=== PATIENT | male | born 1945 | race Caucasian/White ===

== ENCOUNTER 2016-04-01 10:56 | Inpatient (IN) | payer MEDICARE, BC ==
[~2016-04-01 10:56] MED LIST: ADENOSINE 6 MG/2 ML SYR IV ONE
[2016-04-01] MEDS ORDERED: ADENOSINE 6 MG/2 ML SYR IV ONE ×3 (11:08→11:12)
[2016-04-01] MEDS ORDERED: DILTIAZEM 25 MG/5 ML VIAL IV ONE ×2 (11:10→11:12)
[2016-04-01] MEDS ORDERED: NS 1,000 ML IV ONE ×3 (11:13→13:22)
--- NOTE | 2016-04-01 11:17 | EDPRACDOC ---
- General Information Chief Complaint: Dyspnea/Resp distress Stated Complaint: RESPIRATORY' Time Seen by Provider: 04/01/16 11:05 Mode Of Arrival: Ambulance Home Medications: Home Medications Aspirin [Brii Aspirin] 325 mg PO DAILY 12/14/12 Lisinopril [Prinivil] 10 mg PO DAILY 12/14/12 Pravastatin [Pravachol] 40 mg PO DAILY 12/14/12 Tiotropium [Spiriva Handihaler] 1 inh INH DAILY 12/14/12 Furosemide [Lasix] 40 mg PO DAILY #30 tab 12/21/12 Albuterol Sulfate [Proair Hfa] 2 puff INH Q6H PRN 01/07/16 Tamsulosin HCl [Flomax] 0.4 mg PO DAILY 01/07/16 Cinnamon Bark [Cinnamon] 500 mg PO DAILY 01/08/16 Multivitamin [Multiple Vitamins] 1 each PO DAILY 01/08/16 Albuterol/Ipratropium Neb [Duoneb] 3 ml NEB Q4-6H PRN 04/01/16 Calcium Carbonate [Calcium] 1,000 mg PO DAILY 04/01/16 Levothyroxine [Synthroid, Levoxyl] 50 mcg PO DAILY 04/01/16 Metoprolol Succinate (XL) [Toprol Xl] 50 mg PO DAILY 04/01/16 Nebulizer [Erapid Nebulizer] 1 each MC .UNKNOWN 04/01/16 Niacin [Slo-Niacin] 1,000 mg PO DAILY 04/01/16 Allergies/Adverse Reactions: Allergies Allergy/AdvReac Type Severity Reaction Status Date / Time No Known Allergies Allergy Verified 04/01/16 11:18 - History of Present Illness Onset: 2 DAYS HPI: PT STATES COUGH PROD OF GREEN PHLEGM, SOBR, CHEST TIGHTNESS, "FEVER", STATES WAS TREATED FOR PNEUMONIA 2 WEEKS AGO, NO N/V/D. 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 Denies: Cancer Surgical History: Reports: Angioplasty (STENT 2002), Hernia Surgery, Other ( MIDDLE & RING FINGER AMPUTATED R HAND) - Family Medical History Reports: Hypertension (BROTHER, MOTHER), Diabetes (BROTHER), Cancer (FATHER- TUMOR IN C-SPINE & COLON CA), Cardiac Disorders (MOTHER -[place] & AGE 57). Denies: Stroke - Social Medical History Smoking Status: Former smoker ETOH: None Substance Abuse: None EDM Review of Systems - Review of Systems Constitutional: Fever, Weakness Eyes: negative: Blurred Vision, Double Vision Ears: negative: Drainage Throat: negative: Pain Nose: Congestion. negative: Discharge Respiratory: Cough, Shortness of Breath, Wheezing Cardiovascular: negative: Chest Pain, Palpitations Gastrointestinal: negative: Diarrhea, Nausea, Pain, Vomiting Genitourinary: negative: Dysuria, Frequency Neurological: negative: Dizziness, Headache, Numbness, Weakness Musculoskeletal: No Symptoms Reported Integumentary: No Symptoms Reported - Physical Exam Constitutional: Alert (Awake), No apparent distress Oriented to: Time, Person, Place Last recorded Vital Signs: Last Vital Signs Temp 99.0 F 04/01/16 11:00 Pulse 159 H 04/01/16 11:00 Resp 20 04/01/16 11:00 BP 184/125 H 04/01/16 11:00 Pulse Ox 86 L 04/01/16 11:00 Oxygen Pulse Oxygen Saturation 86 O2 Device Nasal Cannula Oxygen Flow Rate 4 Fraction of Inspired Oxygen ( FIO2) - HEENT Head: Normal ( normocephalic) Eye Exam: Normal (PERRL, EOMI, Sclera white) Oropharynx: Normal (Pharynx:Moist without exudate,Gums-no swelling) Tympanic Membrane: Normal ENT EAC: Normal TMJ: Normal Nose: No Symptoms Reported (septum midline) Neck: Normal (FROM, trachea at midline) - Respiratory/Cardiovascular Respiratory: Accessory Muscle Use, Wheezes Cardiovascular: Tachycardia - GI Auscultation: Normal (NABS) Palpation: Normal (Soft,No rebound or guarding, non distended) Tenderness: Non tender Merritt's Sign: Negative - Musculoskeletal Back: Normal (Non-Tender) Extremities: Normal (Normal tone, Pulses 2+ No cyanosis or edema, FROM) - Integumentary Skin: Normal, Warm, Dry Lymphatics: Normal (no adenopathy) - Neurologic Memory Impaired: Normal Motor Function: Normal (Normal tone, Pulses 2+ No cyanosis or edema, FROM) Cranial Nerve: Normal (CN II-X11 intact sensation, strength 5/5) Cerebellar: Normal Mood Description: Normal Perception: Normal ED SOB MDM - Re-evaluation Re-evaluation 1 Re-evaluation Time: 11:09 (PT BECAME DIAPHORETIC, COMPLAINING OF CHEST PAIN, INCREASING SOBR, HEART RATE NOTED TO BE 225) Re-evaluation 2 Re-evaluation Time: 11:12 (NO CHANGE AFTER ADENOSINE 6MG AND 12 MG) Re-evaluation 3 Re-evaluation Time: 11:20 (HEART RATE IMPROVED AFTER 20 MG CARDIZEM, NOW DOWN TO 120, A-FIB) Re-evaluation 4 Re-evaluation Time: 12:54 (HEART RATE IMPROVED, MAINTAINING O2 AT 93% ON 45% VENTI MASK) - Results Result Diagrams: 04/01/16 11:17 04/01/16 11:17 Results: 04/01/16 12:54 Laboratory Results - last 24 hr 04/01/16 04/01/16 04/01/16 11:17 11:17 11:17 WBC 21.9 H RBC 3.86 L Hgb 12.4 L Hct 37.4 L MCV 97 H MCH 32.1 H MCHC 33.1 RDW 13.2 Plt Count 258 MPV 6.9 L Neut % (Auto) Cancelled Lymph % (Auto) Cancelled [place] % (Auto) Cancelled Eos % (Auto) Cancelled Baso % (Auto) Cancelled Absolute Neuts (auto) Cancelled Absolute Lymphs (auto) Cancelled Seg Neuts % (Manual) 67 Band Neutrophils % 17 H Lymphocytes % (Manual) 7 L Monocytes % (Manual) 9 Absolute Neutrophils 18.40 H Absolute Lymphocytes 1.53 Vacuolated Neuts Few Toxic Granulation 1+ Platelet Estimate Norm RBC Morphology Norm PT INR APTT Puncture Site pH pCO2 pO2 HCO3 Total CO2 Base Excess FiO2 % Specimen Drawn By Sodium 131 L Potassium 4.4 Chloride 92 L Carbon Dioxide 28 Anion Gap 15 BUN 40 H Creatinine 1.60 H Estimated GFR (MDRD) 43 L Glucose 229 H Calculated Osmolality 270 Lactic Acid 2.2 H Calcium 8.4 Corrected Calcium 8.9 Total Bilirubin 0.5 AST 51 ALT 48 Alkaline Phosphatase 150 Troponin I 0.03 Total Protein 6.5 Albumin 3.5 Lipase 11 L 04/01/16 04/01/16 11:17 11:34 WBC RBC Hgb Hct MCV MCH MCHC RDW Plt Count MPV Neut % (Auto) Lymph % (Auto) [place] % (Auto) Eos % (Auto) Baso % (Auto) Absolute Neuts (auto) Absolute Lymphs (auto) Seg Neuts % (Manual) Band Neutrophils % Lymphocytes % (Manual) Monocytes % (Manual) Absolute Neutrophils Absolute Lymphocytes Vacuolated Neuts Toxic Granulation Platelet Estimate RBC Morphology PT 12.1 H INR 1.2 APTT 34.8 Puncture Site Right radial pH 7.380 pCO2 46.0 H pO2 61.0 L HCO3 27.2 H Total CO2 28.6 H Base Excess 1.5 FiO2 % 3 lpm nc Specimen Drawn By Kasgl Sodium Potassium Chloride Carbon Dioxide Anion Gap BUN Creatinine Estimated GFR (MDRD) Glucose Calculated Osmolality Lactic Acid Calcium Corrected Calcium Total Bilirubin AST ALT Alkaline Phosphatase Troponin I Total Protein Albumin Lipase - EKG EKG #1 EKG Time: 11:05 -: Yes EKG interpreted by ny Rate: bpm: 154 Rhythm: Afib Block: RBBB Hypertrophy: None ST: Nonsp Comparison: 11/08/14 (AFIB W RVR NEW) EKG #2 EKG Time: 11:09 -: Yes EKG interpreted by ny Rate: bpm: 224 Rhythm: PSVT Block: LBBB Hypertrophy: None ST: Nonsp EKG #3 EKG Time: 11:12 -: Yes EKG interpreted by ny Rate: bpm: 115 [place]: Normal Rhythm: Afib Block: RBBB Hypertrophy: None ST: Nonsp - Additional Information Additional Information: DISCUSSED WITH DR MONZON HE WILL DISCUSS WITH HOSPITALIST FOR ADMISSION. - Departure Condition: Fair Final Diagnosis: Community acquired pneumonia, Acute respiratory failure with hypoxia, Atrial fibrillation with RVR Education/Counseling Given To: Patient, Family Member Education/Counseling Given Regarding: Diagnosis, Treatment, Prognosis, Follow Up Forms: ED Discharge Instructions
[2016-04-01 11:27] LABS: MPV 6.9 fL (7.4-10.4)
[2016-04-01] MEDS ORDERED: LEVALBUTEROL 1.25 MG in 3 ML NEB NEB ONE (11:30)
[2016-04-01 11:36] LABS: ALLEN'S TEST PASS; BEb 1.5 (+/- 2); TCO2 28.6 MMOL/L (23-27)
[2016-04-01 11:37] LABS: ABG Draw Site Right Radial
[2016-04-01 11:41] LABS: BLOOD UREA NITROGEN 40 MG/DL (9-20); CALC CORRECTED 8.9 MG/DL (8.4-10.2); CALCIUM 8.4 MG/DL (8.4-10.2); CALCULATED OSMOLALITY 270 MOs/Kg (270-290); CHLORIDE 92 mEq/L (98-107); GLUCOSE 229 MG/DL (70-99); SODIUM LEVEL 131 mEq/L (137-146); TOTAL PROTEIN 6.5 G/DL (6.3-8.2)
[2016-04-01 11:45] LABS: PARTIAL THROMB. TIME 34.8 SEC (22-35); PT-INR 1.2
[2016-04-01 11:56] LABS: SEG NEUTROPHIL 67 % (45-76)
[2016-04-01] MEDS ORDERED: Levofloxacin 750 mg/150 ml D5W 750 MG/150 ML RTU IV ONE (12:22)
--- NOTE | 2016-04-01 12:38 | DIRPT ---
CLINICAL DATA: Productive cough. Shortness of breath. Chest tightness. EXAM: PORTABLE CHEST 1 VIEW COMPARISON: 11/21/2012 FINDINGS: There is bilateral lower lobe airspace disease. There a trace right pleural effusion. There is no left pleural effusion. There is no pneumothorax. The heart mediastinum are stable. There is no acute osseous abnormality. IMPRESSION: Bilateral lower lobe airspace disease concerning for multilobar pneumonia . Electronically Signed By: Shantell Campos On: 04/01/2016 12:36
[2016-04-01] MEDS ORDERED: ALBUTEROL 0.083% 3 ML NEB NEB PRN ×2 (13:27→13:32)
[2016-04-01] MEDS ORDERED: Albuterol/Ipratropium Neb 3 ML NEB NEB PRN (13:27)
[2016-04-01] MEDS ORDERED: Non-Formulary Medication ITEM (Nebulizer [Erapid Nebulizer] 1 EACH) MC SCH (13:30)
[2016-04-01] MEDS ORDERED: Enoxaparin 1 mg per kg per dose SQ ONE (13:30)
[2016-04-01] MEDS ORDERED: Diltiazem HCl 100 MG in D5W 100 ML IV SCH ×2 (13:31→14:00)
[2016-04-01] MEDS ORDERED: GLUCOSE (ORAL GEL) 15 GM TUBE PO PRN (13:32)
[2016-04-01] MEDS ORDERED: IBUPROFEN 400 MG TAB PO PRN (13:32)
[2016-04-01] MEDS ORDERED: TUSSIONEX 5 ML ORAL SYRINGE PO PRN (13:32)
[2016-04-01] MEDS ORDERED: BENZONATATE 100 MG PERLES PO PRN (13:32)
[2016-04-01] MEDS ORDERED: ACETAMINOPHEN 325 MG/TAB TABLET PO PRN (13:32)
[2016-04-01] MEDS ORDERED: ONDANSETRON HCL 4 MG/2 ML VIAL IV PRN (13:32)
[2016-04-01] MEDS ORDERED: GLUCAGON 1 MG VIAL SQ PRN (13:32)
[2016-04-01] MEDS ORDERED: Aluminum;Magnesium;Simethicone 30 ML UDC PO PRN (13:32)
[2016-04-01] MEDS ORDERED: MAGNESIUM HYDROXIDE 30 ML BOTTLE PO PRN (13:32)
[2016-04-01] MEDS ORDERED: SODIUM CHLORIDE 0.9% 3 ML FLUSH FLUSH PRN (13:32)
[2016-04-01] MEDS ORDERED: DEXTROSE 25 GM/50 ML PFS IV PRN (13:32)
[2016-04-01] MEDS ORDERED: PROMETHAZINE 25 MG/ML VIAL IV PRN (13:32)
--- NOTE | 2016-04-01 13:42 | HISTPHYS ---
- Chief Complaint Several day history of cough and shortness of breath with associated chills and fever - History of Present Illness PT STATES COUGH PROD OF GREEN PHLEGM, SOBR, CHEST TIGHTNESS, "FEVER", STATES WAS TREATED FOR PNEUMONIA 2 WEEKS AGO, NO N/V/D. Shortness of Breath: Moderate Relevant History: Reports: COPD Cough: Reports: Productive, Green Rhinorrhea: Reports: Clear Ear Symptoms: Reports: None SOB Worsens with: Reports: Exertion, Movement, Coughing SOB Improves with: Reports: Nothing Recently treated infections:: Reports: Pneumonia Associated Signs and symptoms: Reports: Cough, Fever, Nasal Symptoms, Sore Throat, Myalgia Pleasant 70-year-old gentleman presents the emergency department complaining of green phlegm shortness of breath chest tightness fever was treated for pneumonia 2 weeks ago by primary care physician he says he has gotten worse since then. In the emergency department he was fully evaluated he usually uses 2 L of home O2 but required to 45% Venti mask. Oxygen sats were markedly low. His also found to me very tachycardic with a heart rate in the 160s to 200 and atrial fibrillation. His creatinine is elevated his sodium is low and he is markedly hypoxemic. He will be admitted into the hospital for evaluation and management of acute respiratory failure acute bilateral pneumonia atrial fibrillation hypoxemia coronary artery disease renal insufficiency. Patient is acutely and critically ill will be admitted into the ICU. - Medical History Cardiac History: Reports: Coronary Artery Disease, Hypertension, Congestive Heart Failure, Heart Attack (2002), Hypercholesterolemia Respiratory History: Reports: COPD, Pneumonia (bilat) GI/ History: Reports: Gastroesophageal Reflux, Diverticulosis Musculoskeletal History: Reports: Arthritis Systemic History: Reports: Hypothyroidism. Denies: Cancer Neurological History: Reports: Migraine Psychological History: Reports: No Significant History - Surgical History Reports: Angioplasty (STENT 2002), Hernia Surgery, Other (MIDDLE & RING FINGER AMPUTATED R HAND) - Medictions/Allergies Allergies No Known Allergies Allergy (Verified 04/01/16 11:18) Current Medication List: Reviewed Home Medications Aspirin [Brii Aspirin] 325 mg PO DAILY 12/14/12 Lisinopril [Prinivil] 10 mg PO DAILY 12/14/12 Pravastatin [Pravachol] 40 mg PO DAILY 12/14/12 Tiotropium [Spiriva Handihaler] 1 inh INH DAILY 09/26/13 Furosemide [Lasix] 40 mg PO DAILY #30 tab 12/21/12 Albuterol Sulfate [Proair Hfa] 2 puff INH Q6H PRN 01/07/16 Tamsulosin HCl [Flomax] 0.4 mg PO DAILY 01/07/16 Cinnamon Bark [Cinnamon] 500 mg PO DAILY 01/08/16 Multivitamin [Multiple Vitamins] 1 each PO DAILY 01/08/16 Albuterol/Ipratropium Neb [Duoneb] 3 ml NEB Q4-6H PRN 04/01/16 Calcium Carbonate [Calcium] 1,000 mg PO DAILY 04/01/16 Levothyroxine [Synthroid, Levoxyl] 50 mcg PO DAILY 04/01/16 Metoprolol Succinate (XL) [Toprol Xl] 50 mg PO DAILY 04/01/16 Nebulizer [Erapid Nebulizer] 1 each MC .UNKNOWN 04/01/16 Niacin [Slo-Niacin] 1,000 mg PO DAILY 04/01/16 - Family History Reports: Hypertension (BROTHER, MOTHER), Diabetes (BROTHER), Cancer (FATHER- TUMOR IN C-SPINE & COLON CA), Cardiac Disorders (MOTHER -[place] & AGE 57). Denies: Stroke - Social History Travel Outside of [place] in the Last 3 Months?: No Lives: with Spouse Smoking Status: Former smoker Social History: Denies: Alcohol Use, Substance Use Disorder - Review of Systems Constitutional: Chills, Fever, Diaphoresis, Fatigue, Weakness Eyes: No Symptoms Reported (No blurry vision, visual changes, eye pain, or eye redness.) Ears: No Symptoms Reported (No ear pain or discharge) Nose: No Symptoms Reported (No nasal discharge/congestion or bleeding) Mouth: No Symptoms Reported (No oropharyngeal lesions or erythema) Throat/Neck: No Symptoms Reported (No throat pain or swelling.No oropharyngeal lesions or erythema.) Respiratory: Cough, Shortness of Breath, Wheezing, Sputum Cardiovascular: Palpitations Gastrointestinal: No Symptoms Reported (No abdominal pain, nausea, vomiting, diarrhea, constipation, or bloody stool.) Genitourinary: No Symptoms Reported (No dysuria or hematuria.) Neurological: No Symptoms Reported (No headache, dizziness, seizures, or focal weakness.) Musculoskeletal:: No Symptoms Reported Integumentary: No Symptoms Reported Allergic/Immunologic: No Symptoms Reported Hematologic: No Symptoms Reported Endocrine: No Symptoms Reported Psychiatric: No Symptoms Reported - Physical Exam Vital Signs: Initial Vitals Temperature 99.0 F 04/01/16 11:00 Pulse Rate 159 H 04/01/16 11:00 Respiratory Rate 20 04/01/16 11:00 Blood Pressure 184/125 H 04/01/16 11:00 Pulse Oxygen Saturation 86 L 04/01/16 11:00 Constitutional: Alert, Distress (Severe), Well nourished. negative: Well appearing Oriented to: Time, Person, Place - HEENT Head: Normal (normocephalic, atraumatic.), Other (No cervical lymphadenopathy. No supraclavicular lymphadenopathy. Neck: No palpable mass, supple , trachea midline.) Eye: Normal (pupils equal, reactive to light, and round; EOMI, Sclera white) Oropharynx: Normal (Pharynx: Moist without exudate,Gums-no swelling, No oropharyngeal lesions or erythema, Mucous membranes are dry.) Nose: No Symptoms Reported (septum midline, Nares patent, without discharge or bleeding.) Respiratory: Accessory Muscle Use, Diminished, Rales, Retractions, Rhonchi, Tachypnea, Wheezes Cardiovascular: Tachycardia, Irregular. negative: Diastolic murmur, Systolic murmur, Gallop/S3, Gallop/S4, Other - GI Auscultation: Normal (normal active sounds) Palpation: Normal (Soft,non distended,nontender. No hepatosplenomegaly.) Tenderness: Non tender (No rebound or guarding) Rectal Exam: Normal - Musculoskeletal Back: Normal (Non-Tender) Extremities: Normal (Normal tone, DP pulses 2+ bilaterally, No cyanosis or edema bilaterally, FROM bilaterally.) - Integumentary Skin: Normal (Clean, dry, and intact. No rashes. No lesions.) Lymphatics: Normal (No cervical lymphadenopathy. No supraclavicular lymphadenopathy.) - Neurologic Memory Impaired: Normal Motor Function: Normal (Motor 5/5 throughout.Normal tone, Pulses 2+ No cyanosis or edema, FROM) Cranial Nerve: Normal (CN II-XII intact sensation, strength 5/5) Cerebellar: Normal (Babinski: toes downgoing bilaterally. Intact Finger to nose. Sensory grossly intact to light touch. Intact rapid alternating movements bilaterally. No pronator drift.) Mood Description: Normal (Fully oriented. Normal and appropriate affect.) - Focused CV Perfusion Exam Vital Signs: Last Vital Signs Temp 99.0 F 04/01/16 11:00 Pulse 148 H 04/01/16 13:07 Resp 24 04/01/16 13:07 BP 109/54 L 04/01/16 13:07 Pulse Ox 92 04/01/16 13:07 - Lab Results Laboratory Results - last 24 hr 04/01/16 04/01/16 04/01/16 11:17 11:17 11:17 WBC 21.9 H RBC 3.86 L Hgb 12.4 L Hct 37.4 L MCV 97 H MCH 32.1 H MCHC 33.1 RDW 13.2 Plt Count 258 MPV 6.9 L Neut % (Auto) Cancelled Lymph % (Auto) Cancelled [place] % (Auto) Cancelled Eos % (Auto) Cancelled Baso % (Auto) Cancelled Absolute Neuts (auto) Cancelled Absolute Lymphs (auto) Cancelled Seg Neuts % (Manual) 67 Band Neutrophils % 17 H Lymphocytes % (Manual) 7 L Monocytes % (Manual) 9 Absolute Neutrophils 18.40 H Absolute Lymphocytes 1.53 Vacuolated Neuts Few Toxic Granulation 1+ Platelet Estimate Norm RBC Morphology Norm PT INR APTT Puncture Site pH pCO2 pO2 HCO3 Total CO2 Base Excess FiO2 % Specimen Drawn By Sodium 131 L Potassium 4.4 Chloride 92 L Carbon Dioxide 28 Anion Gap 15 BUN 40 H Creatinine 1.60 H Estimated GFR (MDRD) 43 L Glucose 229 H Calculated Osmolality 270 Lactic Acid 2.2 H Calcium 8.4 Corrected Calcium 8.9 Total Bilirubin 0.5 AST 51 ALT 48 Alkaline Phosphatase 150 Troponin I 0.03 Total Protein 6.5 Albumin 3.5 Lipase 11 L 04/01/16 04/01/16 11:17 11:34 WBC RBC Hgb Hct MCV MCH MCHC RDW Plt Count MPV Neut % (Auto) Lymph % (Auto) [place] % (Auto) Eos % (Auto) Baso % (Auto) Absolute Neuts (auto) Absolute Lymphs (auto) Seg Neuts % (Manual) Band Neutrophils % Lymphocytes % (Manual) Monocytes % (Manual) Absolute Neutrophils Absolute Lymphocytes Vacuolated Neuts Toxic Granulation Platelet Estimate RBC Morphology PT 12.1 H INR 1.2 APTT 34.8 Puncture Site Right radial pH 7.380 pCO2 46.0 H pO2 61.0 L HCO3 27.2 H Total CO2 28.6 H Base Excess 1.5 FiO2 % 3 lpm nc Specimen Drawn By Kasgl Sodium Potassium Chloride Carbon Dioxide Anion Gap BUN Creatinine Estimated GFR (MDRD) Glucose Calculated Osmolality Lactic Acid Calcium Corrected Calcium Total Bilirubin AST ALT Alkaline Phosphatase Troponin I Total Protein Albumin Lipase - Diagnostic Findings PORTABLE CHEST 1 VIEW COMPARISON: 11/21/2012 FINDINGS: There is bilateral lower lobe airspace disease. There a trace right pleural effusion. There is no left pleural effusion. There is no pneumothorax. The heart mediastinum are stable. There is no acute osseous abnormality. IMPRESSION: Bilateral lower lobe airspace disease concerning for multilobar pneumonia . Electronically Signed By: Shantell Campos On: 04/01/2016 12:36 EKG personally viewed by me reveals an atrial fibrillation at a rate of 167 beats per minute several further EKGs were obtained and all were similar. When compared to prior EKG atrial fibrillation is new. - Assessment (1) Acute respiratory failure with hypoxia J96.01 - ACUTE RESPIRATORY FAILURE WITH HYPOXIA Acute Present on Admission: Yes Patient with severe acute respiratory failure requiring a 45% Venti mask. Continue support oxygen as necessary (2) Community acquired bacterial pneumonia J15.9 - UNSPECIFIED BACTERIAL PNEUMONIA Acute Present on Admission: Yes Bilateral multi lobar pneumonia noted on chest x-ray. This is a very severe case. Will start IV antibiotics immediately. Proceed with pneumonia evidence based protocol. (3) Atrial fibrillation with RVR I48.91 - UNSPECIFIED ATRIAL FIBRILLATION Acute Present on Admission: Yes Patient extraordinarily tachycardic heart rates up into the 200s earlier will start diltiazem drip and IV fluid resuscitation I believe he is several L behind. (4) Sepsis A41.9 - SEPSIS, UNSPECIFIED ORGANISM Acute Present on Admission: Yes Qualifiers: Sepsis type: sepsis due to unspecified organism Qualified Code(s): A41.9 - Sepsis, unspecified organism Fairly mild but present. (5) Hyponatremia E87.1 - HYPO-OSMOLALITY AND HYPONATREMIA Acute Present on Admission: Yes Associated with pneumonia will hold free water. (6) COPD (chronic obstructive pulmonary disease) J44.9 - CHRONIC OBSTRUCTIVE PULMONARY DISEASE, UNSPECIFIED Chronic Present on Admission: Yes Qualifiers: COPD type: unspecified COPD Qualified Code(s): J44.9 - Chronic obstructive pulmonary disease, unspecified Neb treatments are ordered. Will add steroids. (7) Hypothyroidism E03.9 - HYPOTHYROIDISM, UNSPECIFIED Chronic Present on Admission: Yes TSH is suppressed will hold Synthroid for now out. Suspect patient with euthyroid sick syndrome (8) Obstructive sleep apnea G47.33 - OBSTRUCTIVE SLEEP APNEA (ADULT) (PEDIATRIC) Chronic Will require nocturnal CPAP. (9) Renal insufficiency N28.9 - DISORDER OF KIDNEY AND URETER, UNSPECIFIED Acute Present on Admission: Yes Suspect due to degree of dehydration will hydrate aggressively. (10) Type 2 diabetes mellitus E11.9 - TYPE 2 DIABETES MELLITUS WITHOUT COMPLICATIONS Acute Present on Admission: Yes Qualifiers: Diabetes mellitus complication status: with kidney complications Diabetes mellitus complication detail: with chronic kidney disease Diabetes mellitus jail insulin use: without jail use Chronic kidney disease stage: stage 3 (moderate) Qualified Code(s): E11.22 - Type 2 diabetes mellitus with diabetic chronic kidney disease; N18.3 - Chronic kidney disease, stage 3 ( moderate) (11) Calcification of coronary artery I25.10 - ATHSCL HEART DISEASE OF [place] CORONARY ARTERY W/O ANG PCTRS; I25.84 - CORONARY ATHEROSCLEROSIS DUE TO CALCIFIED CORONARY LESION Chronic Patient without chest pain and at the current time. Suspect coronary disease is well compensated. Will continue to monitor. (12) Gastroesophageal reflux disease K21.9 - GASTRO-ESOPHAGEAL REFLUX DISEASE WITHOUT ESOPHAGITIS Chronic ON PPI 's (13) Hyperlipidemia LDL goal <70 E78.5 - HYPERLIPIDEMIA, UNSPECIFIED Chronic CONTINUE PRAVACHOL AND NIACIN - Plan Admit patient to ICU treat atrial fibrillation and severe pneumonia. Patient with only mild sepsis. Due to the presence of and/or the risk of deterioration, my attendance to this patient required critical care time, including assessment/reassessment, documentation, ordering and interpreting ancillary studies, discussion with staff and consultants,patient and family, and excludes time spent on separately billable procedures. In summary, this patient is acutely and critically ill. The patient requires treatment of vital organ failure and measures to prevent further life-threatening deterioration of condition. Case Care Discussed with: Patient, Nursing Staff Total Time: 96 minutes Critical Care: Yes [place] Time (>50% in counseling/coordination): No
[2016-04-01] MEDS: CEFTRIAXONE 1 GM in D5W 100 ML IV SCH (14:13)
[2016-04-01] MEDS ORDERED: ENOXAPARIN SODIUM SQ ONE ×2 (14:30)
[2016-04-01] MEDS: Albuterol/Ipratropium Neb 3 ML NEB NEB SCH ×2 (15:38→21:38)
[2016-04-01] MEDS: AZITHROMYCIN 500 MG in D5W 250 ML IV SCH (16:42)
[2016-04-01] MEDS ORDERED: AMIODARONE 360 MG/200 ML RTU IV ONE (17:23)
[2016-04-01] MEDS ORDERED: Non-Formulary Medication 1 in D5W 100 ML IV SCH (17:25)
[2016-04-01] MEDS: SODIUM CHLORIDE 0.9% 3 ML FLUSH FLUSH SCH (17:52)
[2016-04-01] MEDS: NS 1,000 ML IV SCH ×2 (17:56→23:56)
[2016-04-01] MEDS: REGULAR INSULIN 100 UNITS/ML - 3 ML VIAL SQ SCH ×2 (17:58→20:21)
[2016-04-01] MEDS ORDERED: GLARGINE INSULIN (LANTUS) 100 UNITS/ML PEN SQ SCH (18:00)
--- NOTE | 2016-04-01 18:13 | PCM.CARDCO ---
Consultation Date: 04/01/16 Requesting Physician: Jodi Louie (afib/rvr) Consulting Doctor: Mehdi Rashid Travel Outside of [place] in the Last 3 Months?: No Consultation Note: History of Present Illness: Pt is a 70 YO WM followed primarily by Christian Guo NP, and for COPD by Dr. Nieves. He also has hx of CAD s/p coronary stent procedure in 2002 at [facility]. No formal cardiologoy f/u for several years. Was treated for pneumonitis earlier this winter, was doing ok until last weekend, began having more SOB as well as bilt leg/foot soreness, initially periodically, but felt much more SOB this AM, and having non=specific discomfort (tightness) in his chest. Denies fever, chills, signif sputum production. No radiation of discomfort outside chest. No nausea/ vomiing, hemoptysis, subjective palpitations. Is not aware of any specific onset of tachycardia. Past Medical History: CAD and COPD as noted. On chronic O2 and bronchodilators Past Surgical History: appendectomy Allergies No Known Allergies Allergy (Verified 04/01/16 11:18) Home Medications Aspirin [Brii Aspirin] 325 mg PO DAILY 12/14/12 Lisinopril [Prinivil] 10 mg PO DAILY 12/14/12 Pravastatin [Pravachol] 40 mg PO DAILY 12/14/12 Tiotropium [Spiriva Handihaler] 1 inh INH DAILY 12/14/12 Furosemide [Lasix] 40 mg PO DAILY #30 tab 12/21/12 Albuterol Sulfate [Proair Hfa] 2 puff INH Q6H PRN 01/07/16 Tamsulosin HCl [Flomax] 0.4 mg PO DAILY 01/07/16 Cinnamon Bark [Cinnamon] 500 mg PO DAILY 01/08/16 Multivitamin [Multiple Vitamins] 1 each PO DAILY 01/08/16 Albuterol/Ipratropium Neb [Duoneb] 3 ml NEB Q4-6H PRN 04/01/16 Calcium Carbonate [Calcium] 1,000 mg PO DAILY 04/01/16 Levothyroxine [Synthroid, Levoxyl] 50 mcg PO DAILY 04/01/16 Metoprolol Succinate (XL) [Toprol Xl] 50 mg PO DAILY 04/01/16 Nebulizer [Erapid Nebulizer] 1 each MC .UNKNOWN 04/01/16 Niacin [Slo-Niacin] 1,000 mg PO DAILY 04/01/16 Family History: not immediately obtainable - pt on BIPAP Social History: Traveled outside the [place] in the last 3 months? No Former smoker Review of Systems: Pertinent positive and negatives per HPI. No TIA/CVA sx, no hx of afib/ flutter. Physical Examination: Temperature: 99.0 F (04/01/16 11:00)HR: 156 (04/01/16 18:11)RR: 19 (04/01/16 17 :46)BP: 73/46 (04/01/16 18:11) SAT:94 (04/01/16 18:11) [] Intake & Output 03/29/16 03/30/16 03/31/16 04/01/16 23:59 23:59 23:59 23:59 Intake Total 3165 Balance 3165 Patient's weight 104.326 kg Physical Exam GEN: Obese, age appropriate man, dyspneic on BIPAP VS: as above HEENT: neck veins? Carotids normal, thyroid not palpable CHEST: diffusely diminished breath sounds, scattered wheezes, marked exp prolongation; few bibasilar crackles COR: RR, normal s1, s2, no s3 or murmur heard over wheezing ABD: obese, non-tender EXTREM: trace if any edema, no clubbing SKIN: warm, dry NEURO: alert, oriented, no focal motor deficidt LAB/DI: [] Laboratory Tests 04/01/16 04/01/16 04/01/16 11:17 11:17 11:17 WBC 21.9 H Hgb 12.4 L Hct 37.4 L Plt Count 258 INR 1.2 pH pCO2 pO2 HCO3 Sodium 131 L Potassium 4.4 Chloride 92 L Carbon Dioxide 28 BUN 40 H Creatinine 1.60 H Estimated GFR (MDRD) 43 L Troponin I 0.03 TSH 04/01/16 04/01/16 04/01/16 11:17 11:34 14:30 WBC Hgb Hct Plt Count INR pH 7.380 pCO2 46.0 H pO2 61.0 L HCO3 27.2 H Sodium Potassium Chloride Carbon Dioxide BUN Creatinine Estimated GFR (MDRD) Troponin I 0.08 TSH 0.31 L EKGs in ER: atrial flutter with 2:1 conduction, HR 150 RBBB, no gross ST shift CXR: bilat lower lobe infitrates; no radiographic CHF IMPRESSION: afib/flutter/ RVR in setting of advanced COPD, with PNA and exacerbation. - known CAD, no EKG ischemia and markers neg so far - Recommendations REC: IV diltiazem had little affect on HR IV amio started and pt has become hypotensive to 70s/-- Will interrupt amio, load, treat with IV dig, and IV verapamil for rate control Would suggest full anticoagulatioin with enoxaparin and pulmonary consult (Chordri)
[2016-04-01] MEDS: METHYLPREDNISOLONE 125 MG/2 ML VIAL IV SCH ×2 (18:28→23:50)
[2016-04-01] MEDS: DIGOXIN 0.5 MG/2 ML (250 MCG /ML) AMPULE IV SCH ×2 (20:13→23:42)
[2016-04-01] MEDS: GLARGINE INSULIN (LANTUS) 100 UNITS/ML PEN SQ SCH (20:37)
[2016-04-01] MEDS ORDERED: Vaccine Screening Complete SCH (21:00)
[2016-04-01] MEDS: VERAPAMIL 5 MG/2 ML VIAL IV PRN ×4 (21:15→23:06)
[2016-04-01] MEDS: AMIODARONE 360 MG/200 ML RTU IV SCH (23:23)
[2016-04-01] MEDS: CHLORHEXIDINE (HIBICLENS) 4 OZ BOTTLE TOP SCH (23:54)
[2016-04-02 01:16] LABS: LEUKOCYTES/URINE NEG (NEGATIVE); NITRITE/URINE NEG (NEGATIVE); URINE OCCULT BLOOD NEG (NEG/TRACE)
--- NOTE | 2016-04-02 01:44 | HIMCONS ---
DATE OF CONSULT: REQUESTING PHYSICIAN: Jodi Louie MD REASON FOR CONSULTATION: Respiratory failure. HISTORY OF PRESENT ILLNESS: This patient is a 70-year-old male, well known to me from previous office and hospital visits. The patient was admitted to the emergency room because of chest tightness and fever for about 2 weeks duration. The patient admitted for pneumonia from the primary care office and has been coughing up greenish phlegm. He was placed on 45% Ventimask in the emergency room even though the patient has been on 2 L oxygen at home and heart rate was 160-200 with atrial fibrillation, rapid ventricular response and was seen by the Cardiology. The patient was admitted because of acute on chronic respiratory failure with atrial fibrillation, rapid ventricular response, and renal insufficiency. Denies any hemoptysis, hematemesis, hematochezia, or melena. Has been having nasal symptoms of stuffy nose, sore throat, myalgias. PAST MEDICAL HISTORY: Significant for coronary artery disease, history of hypertension, congestive heart failure, CA in 2002 with hypercholesterolemia, history of COPD and pneumonia, history of gastroesophageal reflux disease, diverticulosis, arthritis, hypothyroidism, migraine and history of angioplasty with stent in 2002 with hernia surgery, and middle ring finger amputated on the right hand. ALLERGIES: NO KNOWN DRUG ALLERGIES. MEDICATIONS: In the chart were noted. FAMILY HISTORY: Significant for mother having hypertension. Father having tumor in spine and colon cancer. Mother of CA at the age 57. SOCIAL HISTORY: The patient has been a smoker in the past. No history of alcohol or drug abuse. REVIEW OF SYSTEMS: A detailed review of systems is negative except for as mentioned in the history of present illness. PHYSICAL EXAMINATION: VITAL SIGNS: Temperature is 99 degrees Fahrenheit on admission, pulse is 156, blood pressure 78/45 going up to 98/46, pulse ox is 95% with the patient being on BiPAP 35%. IMAGING REPORTS: Chest x-ray was seen personally. The patient seems to have bilateral basal infiltrates with pulmonary vascular congestion. IMPRESSION: Acute on chronic respiratory failure with chronic obstructive pulmonary disease exacerbation and bilateral basal infiltrates. The patient has atrial fibrillation flutter with rapid ventricular response. The patient is going to be placed on Cardizem drip and was given IV digoxin and IV verapamil for rate control by commercial real estate agent also was placed on complete anticoagulation. The patient was also placed on Zithromax and Rocephin, which is appropriate at this time and the patient is also on Solu-Medrol 60 mg IV q.6 hours. Continue the nebulizers, continue DVT, and GI prophylaxis of what the patient is on. He is going to be on BiPAP, increase the BiPAP setting to 16/8 with oxygen, would repeat a chest x-ray and blood gas in the morning and also get sputum culture if possible. The patient remains critically ill. He is in danger of dying. Critical care time spent with patient was approximately 90 minutes. [id number]
[2016-04-02] MEDS: Albuterol/Ipratropium Neb 3 ML NEB NEB SCH ×4 (03:10→21:05)
[2016-04-02] MEDS: DIGOXIN 0.5 MG/2 ML (250 MCG /ML) AMPULE IV SCH (04:11)
[2016-04-02 05:39] LABS: BEb -4.2 (+/- 2); TCO2 25.7 MMOL/L (23-27)
[2016-04-02 05:46] LABS: ABG Draw Site Right Radial; BI-PAP 16/8 cm H2O
[2016-04-02 05:47] LABS: ALLEN'S TEST PASS
[2016-04-02] MEDS ORDERED: LEVOTHYROXINE 50 MCG (0.05 MG) TAB PO SCH (06:00)
[2016-04-02 06:02] LABS: MPV 7.2 fL (7.4-10.4)
[2016-04-02 06:15] LABS: PARTIAL THROMB. TIME 39.5 SEC (22-35); PT-INR 1.2
[2016-04-02] MEDS: REGULAR INSULIN 100 UNITS/ML - 3 ML VIAL SQ SCH ×4 (06:21→22:00)
[2016-04-02] MEDS: METHYLPREDNISOLONE 125 MG/2 ML VIAL IV SCH ×3 (06:22→17:30)
[2016-04-02] MEDS: SODIUM CHLORIDE 0.9% 3 ML FLUSH FLUSH SCH ×2 (06:22→17:31)
[2016-04-02 06:41] LABS: BLOOD UREA NITROGEN 36 MG/DL (9-20); CALCIUM 7.3 MG/DL (8.4-10.2); CALCULATED OSMOLALITY 276 MOs/Kg (270-290); CHLORIDE 101 mEq/L (98-107); GLUCOSE 167 MG/DL (70-99); SODIUM LEVEL 137 mEq/L (137-146)
[2016-04-02 07:04] LABS: SEG NEUTROPHIL 68 % (45-76)
--- NOTE | 2016-04-02 07:57 | DIRPT ---
CLINICAL DATA: Respiratory failure. EXAM: PORTABLE CHEST 1 VIEW COMPARISON: 04/01/2016 . FINDINGS: Mediastinum and hilar structures normal. Interim near complete clearing of bibasilar pulmonary infiltrates. Heart size normal. No pleural effusion or pneumothorax. No acute bony abnormality. IMPRESSION: Interim near complete clearing of bibasilar pulmonary infiltrates. Electronically Signed By: Gibson Lares On: 04/02/2016 07:54
--- NOTE | 2016-04-02 07:58 | PCM.PULM ---
Chief Complaint: Acute respiratory failure on chronic with hypoxia Bacterial pneumonia Atrial fibrillation with RVR COPD exacerbation Patient in intensive care unit bed alert and responsive with acute distress, very short of breath, has a productive cough. Remains on BiPAP Current medication list reviewed:yes Has a c/o Dyspnea, MORENO,cough, sputum, wheeze, chest congestion Notes reviewed:yes - Physical Examination Vital Signs and I&O: Last Vital Signs Temp 98.4 F 04/02/16 07:00 Pulse 79 04/02/16 07:49 Resp 18 04/02/16 07:49 BP 131/63 04/02/16 07:00 Pulse Ox 95 04/02/16 07:45 Oxygen Pulse Oxygen Saturation 95 O2 Device Venturi Mask Oxygen Flow Rate 35 Fraction of Inspired Oxygen ( 45 FIO2) Intake & Output 03/30/16 03/31/16 04/01/16 04/02/16 23:59 23:59 23:59 23:59 Intake Total 6408 1042 Output Total 400 Balance 6408 642 General: Alert, Oriented x3, Cooperative, Mild distress, Well appearing, Well nourished, Obese, Weakness, Fatigue Respiratory: Accessory Muscle Use, Diminished, Rhonchi, Tachypnea, Wheezes Cardiovascular: Regular rate, Regular rate and rhythm, Normal S1, No Gallops, Rubs/Murmurs, Normal S2, Good Pedal Pulses (Dp pulses 2+ bilaterally) GI: Normal bowel sounds, Soft, Non tender, No hepatospenomegaly, No masses, Obese Extremities/Musculoskeletal: Normal pulses Skin: Warm,Dry and Intact, No rashes, No breakdown, No significant lesion Neurological: Normal Steady Gait, Normal speech, Strength at 5/5 X4 ext, Cranial nerves 3-12 NL Psych/Mental Status: Appropriate, Cooperative, Anxious Result Diagrams: 04/02/16 05:30 04/02/16 05:30 Labs (last 24 hours): Laboratory Results - last 24 hr 04/01/16 04/01/16 04/01/16 14:30 14:30 15:10 WBC RBC Hgb Hct MCV MCH MCHC RDW Plt Count MPV Neut % (Auto) Lymph % (Auto) [place] % (Auto) Eos % (Auto) Baso % (Auto) Absolute Neuts (auto) Absolute Lymphs (auto) Seg Neuts % (Manual) Band Neutrophils % Lymphocytes % (Manual) Absolute Neutrophils Absolute Lymphocytes Vacuolated Neuts Toxic Granulation Dohle Bodies Platelet Estimate RBC Morphology PT INR APTT Puncture Site pH pCO2 pO2 HCO3 Total CO2 Base Excess FiO2 % Mode BiPAP Specimen Drawn By Sodium Potassium Chloride Carbon Dioxide Anion Gap BUN Creatinine Estimated GFR (MDRD) Glucose POC Capillary Glucose Calculated Osmolality Lactic Acid 1.9 Calcium Troponin I 0.08 [id number] Pept 539 Urine Color Urine Clarity Urine pH Ur Specific [place] Urine Protein Urine Glucose (UA) Urine Ketones Urine Occult Blood Urine Nitrite Urine Bilirubin Urine Urobilinogen Ur Leukocyte Esterase Urine WBC Ur Epithelial Cells Urine Bacteria 04/01/16 04/01/16 04/02/16 17:56 20:20 00:36 WBC RBC Hgb Hct MCV MCH MCHC RDW Plt Count MPV Neut % (Auto) Lymph % (Auto) [place] % (Auto) Eos % (Auto) Baso % (Auto) Absolute Neuts (auto) Absolute Lymphs (auto) Seg Neuts % (Manual) Band Neutrophils % Lymphocytes % (Manual) Absolute Neutrophils Absolute Lymphocytes Vacuolated Neuts Toxic Granulation Dohle Bodies Platelet Estimate RBC Morphology PT INR APTT Puncture Site pH pCO2 pO2 HCO3 Total CO2 Base Excess FiO2 % Mode BiPAP Specimen Drawn By Sodium Potassium Chloride Carbon Dioxide Anion Gap BUN Creatinine Estimated GFR (MDRD) Glucose POC Capillary Glucose 172 H 132 H Calculated Osmolality Lactic Acid Calcium Troponin I [id number]-[id number]-Agixjprswwf Pept Urine Color Dark yellow Urine Clarity Sl cldy Urine pH 6.0 Ur Specific [place] 1.020 Urine Protein 2+ H Urine Glucose (UA) Neg Urine Ketones Neg Urine Occult Blood Neg Urine Nitrite Neg Urine Bilirubin Neg Urine Urobilinogen <2.0 Ur Leukocyte Esterase Neg Urine WBC 10-20 H Ur Epithelial Cells Occ Urine Bacteria Few 04/02/16 04/02/16 04/02/16 05:26 05:30 05:30 WBC 15.5 H RBC 3.67 L Hgb 11.9 L Hct 36.1 L MCV 98 H MCH 32.3 H MCHC 32.9 L RDW 13.4 Plt Count 229 MPV 7.2 L Neut % (Auto) Cancelled Lymph % (Auto) Cancelled [place] % (Auto) Cancelled Eos % (Auto) Cancelled Baso % (Auto) Cancelled Absolute Neuts (auto) Cancelled Absolute Lymphs (auto) Cancelled Seg Neuts % (Manual) 68 Band Neutrophils % 29 H Lymphocytes % (Manual) 3 L Absolute Neutrophils 15.04 H Absolute Lymphocytes 0.47 L Vacuolated Neuts Few Toxic Granulation 2+ Dohle Bodies Present Platelet Estimate Norm RBC Morphology Norm PT INR APTT Puncture Site pH pCO2 pO2 HCO3 Total CO2 Base Excess FiO2 % Mode BiPAP Specimen Drawn By Sodium 137 Potassium 5.1 Chloride 101 Carbon Dioxide 24 Anion Gap 17 H BUN 36 H Creatinine 1.20 Estimated GFR (MDRD) > 60 Glucose 167 H POC Capillary Glucose 160 H Calculated Osmolality 276 Lactic Acid Calcium 7.3 L Troponin I [id number]-Rnisoepldtx Pept Urine Color Urine Clarity Urine pH Ur Specific [place] Urine Protein Urine Glucose (UA) Urine Ketones Urine Occult Blood Urine Nitrite Urine Bilirubin Urine Urobilinogen Ur Leukocyte Esterase Urine WBC Ur Epithelial Cells Urine Bacteria 04/02/16 04/02/16 05:30 05:33 WBC RBC Hgb Hct MCV MCH MCHC RDW Plt Count MPV Neut % (Auto) Lymph % (Auto) [place] % (Auto) Eos % (Auto) Baso % (Auto) Absolute Neuts (auto) Absolute Lymphs (auto) Seg Neuts % (Manual) Band Neutrophils % Lymphocytes % (Manual) Absolute Neutrophils Absolute Lymphocytes Vacuolated Neuts Toxic Granulation Dohle Bodies Platelet Estimate RBC Morphology PT 12.7 H INR 1.2 APTT 39.5 H Puncture Site Right radial pH 7.240 L* pCO2 56.0 H pO2 74.0 L HCO3 24.0 Total CO2 25.7 Base Excess -4.2 L FiO2 % .35 Mode BiPAP 03/11 Specimen Drawn By Robcha Sodium Potassium Chloride Carbon Dioxide Anion Gap BUN Creatinine Estimated GFR (MDRD) Glucose POC Capillary Glucose Calculated Osmolality Lactic Acid Calcium Troponin I Pxw-Q-Hwvovtioxka Pept Urine Color Urine Clarity Urine pH Ur Specific [place] Urine Protein Urine Glucose (UA) Urine Ketones Urine Occult Blood Urine Nitrite Urine Bilirubin Urine Urobilinogen Ur Leukocyte Esterase Urine WBC Ur Epithelial Cells Urine Bacteria Lab/DI/Studies Reviewed: EKG: NSR, NO ST or ST wave changes noted Cxray: 1 view Interim near complete clearing of bibasilar pulmonary infiltrates. Microbiology: 04/01/16 18:45 Nares Nasal Screen MRSA (PCR)(ISIDRA) - Final NEGATIVE for MRSA DNA Medications: Guaifenesin (Mucinex) 1,200 mg PO Q12 KIRT Stop: 04/16/16 16:59 Last Admin: 04/02/16 10:09 Dose: 1,200 mg Ibuprofen (Motrin) 400 mg PO Q6H PRN; Protocol PRN Reason: Mild Pain or Fever above 100.4 Stop: 04/15/16 16:59 Promethazine HCl (Phenergan) 12.5 mg IV Q6H PRN; Protocol PRN Reason: Nausea/Vomiting - Alternative Stop: 04/15/16 16:59 Pravastatin Sodium (Pravachol) 40 mg PO DAILY [facility] Stop: 04/16/16 08:59 Last Admin: 04/02/16 10:06 Dose: 40 mg Insulin Human Regular (Humulin R) 0 units SQ ACHS [facility] PRN Reason: Protocol Stop: 04/15/16 16:59 Last Admin: 04/02/16 06:21 Dose: 3 units Insulin Glargine (Lantus Pen) 10 units SQ HS [facility] Stop: 04/15/16 16:59 Last Admin: 04/01/16 20:37 Dose: Not Given Levothyroxine Sodium (Synthroid, Levoxyl) 50 mcg PO 0600 [facility] Stop: 04/16/16 05:59 Last Admin: 04/02/16 06:22 Dose: Not Given Lisinopril (Zestril) 2.5 mg PO DAILY [facility] Stop: 04/16/16 17:59 Methylprednisolone Sodium Succinate (Solu-Medrol) 60 mg IV Q6 [facility] Stop: 04/15/16 17:59 Last Admin: 04/02/16 06:22 Dose: 60 mg Metoprolol Succinate (Toprol Xl) 50 mg PO DAILY [facility] Stop: 04/16/16 08:59 Last Admin: 04/02/16 10:06 Dose: 50 mg Multivitamins (Unicap) 1 cap PO 1200 [facility] Stop: 04/16/16 11:59 Last Admin: 04/02/16 10:07 Dose: 1 cap Acetaminophen (Tylenol Tablet) 650 mg PO Q6H PRN; Protocol PRN Reason: Mild Pain or Fever above 100.4 Stop: 04/15/16 16:59 Acetylcysteine (Mucomyst) 4 ml NEB RTBID [facility] Stop: 04/16/16 16:59 Al Hydrox/Mg Hydrox/Simethicone (Maalox Plus, Mylanta) 30 ml PO Q3H PRN PRN Reason: Heartburn or Indigestion Stop: 04/15/16 16:59 Albuterol (Proventil, Ventolin) 3 ml NEB Q2H PRN PRN Reason: Wheezing-1ST Stop: 04/15/16 16:59 Albuterol/Ipratropium (Duoneb) 3 ml NEB Q4H PRN PRN Reason: Dyspnea-2ND OPTION Stop: 04/15/16 13:26 Amiodarone HCl/Dextrose (Nextarone) 360 mg in 200 mls @ 16.666 mls/hr IV Q12H KIRT; 0.5 MG/MIN PRN Reason: Protocol Stop: 04/15/16 23:24 Last Admin: 04/01/16 23:23 Dose: 16.666 mls/hr Aspirin (Aspirin) 325 mg PO DAILY [facility] Stop: 04/16/16 08:59 Last Admin: 04/02/16 10:05 Dose: 325 mg Azithromycin 500 mg/ Dextrose 250 mls @ 250 mls/hr IV Q24H [facility] Stop: 04/06/16 15:59 Last Admin: 04/01/16 16:42 Dose: 250 mls/hr Benzonatate (Tessalon) 200 mg PO TID PRN PRN Reason: Cough - First Option Stop: 04/15/16 16:59 Ceftriaxone Sodium 1 gm/ (Dextrose) 100 mls @ 100 mls/hr IV Q24H [facility] Stop: 04/08/16 16:59 Last Admin: 04/01/16 14:13 Dose: 100 mls/hr Chlorphenir/Hydrocodone Polistirex (Tussionex) 5 ml PO BID PRN PRN Reason: Cough - Alternative Stop: 04/15/16 16:59 Enoxaparin Sodium (Lovenox) 100 mg SQ Q12H [facility] Stop: 04/09/16 16:59 Furosemide (Lasix) 40 mg PO DAILY [facility] Stop: 04/16/16 08:59 Last Admin: 04/02/16 10:05 Dose: 40 mg Niacin (Niaspan) 1,000 mg PO DAILY [facility] Stop: 04/16/16 08:59 Last Admin: 04/02/16 10:06 Dose: 1,000 mg Ondansetron HCl (Zofran) 4 mg IV Q6H PRN PRN Reason: Nausea/Vomiting - First Option Stop: 04/15/16 16:59 Sodium Chloride (Normal Saline) 1,000 mls @ 125 mls/hr IV Q24H [facility] Stop: 04/15/16 16:59 Last Admin: 04/02/16 07:59 Dose: 125 mls/hr Tamsulosin HCl (Flomax) 0.4 mg PO DAILY [facility] Stop: 04/16/16 08:59 Last Admin: 04/02/16 10:05 Dose: 0.4 mg Verapamil HCl (Calan, Isoptin) 2.5 mg IV Q5MIN PRN PRN Reason: HR Above 110 beats/min Stop: 04/04/16 19:01 Last Admin: 04/01/16 23:06 Dose: 2.5 mg - Assessment/Plan (1) Acute respiratory failure with hypoxia Acute J96.01 - ACUTE RESPIRATORY FAILURE WITH HYPOXIA Comment/Plan: Patient has been on Rocephin and Zithromax along with Solu-Medrol 60 mg IV q.6 hours with nebulizers requires BiPAP 15 x 7 with 35% oxygen and has been in critically ill condition. His blood gases getting worse. Chest x-ray shows improvement in the bibasilar infiltrates which leads me to believe that they were in fact more pulmonary edema than actual pneumonia and therefore I would start the patient on more diuretics as the chest x-ray today shows more congestive heart failure and does have peribronchial cuffing. Continue the current supportive care and would get a blood Gas at 8:00 p.m. today would repeat blood gas and chest x-ray in the morning (2) Atrial fibrillation with RVR Acute I48.91 - UNSPECIFIED ATRIAL FIBRILLATION Comment/Plan: Patient remains on amiodarone digoxin and remains in sinus rhythm at this time (3) COPD exacerbation Acute J44.1 - CHRONIC OBSTRUCTIVE PULMONARY DISEASE W (ACUTE) EXACERBATION Comment/Plan: Continue Solu-Medrol and antibiotics along with BiPAP and oxygen (4) Community acquired bacterial pneumonia Acute J15.9 - UNSPECIFIED BACTERIAL PNEUMONIA Comment/Plan: Resolved I personally saw and evaluated the patient.: Yes Total Face to Face Time: 35 minutes Case Care Discussed with: Patient, Nursing Staff Education/Counseling Given To: Patient Education/Counseling Given Regarding: Diagnosis, Treatment, Prognosis, Follow Up
[2016-04-02] MEDS: NS 1,000 ML IV SCH ×4 (07:59→15:54)
[2016-04-02] MEDS ORDERED: IPRATROPIUM 0.02% 2.5 ML NEB NEB SCH (08:00)
[2016-04-02] MEDS ORDERED: NIACIN 1000 MG PO SCH (09:00)
[2016-04-02] MEDS ORDERED: LISINOPRIL 10 MG TAB PO SCH (09:00)
[2016-04-02] MEDS ORDERED: [UNRECOGNIZED DRUG - OTHER] PO SCH (09:00)
[2016-04-02] MEDS ORDERED: Non-Formulary Medication ITEM (Multivitamin [Multiple Vitamins] 1 EACH) PO SCH (09:00)
[2016-04-02] MEDS ORDERED: TIOTROPIUM INH SCH (09:00)
[2016-04-02] MEDS ORDERED: CINNAMON BARK 500 MG PO SCH (09:00)
--- NOTE | 2016-04-02 09:03 | GENMEDPROG ---
Subjective Note: Patient in bed responsive follows commands.. Acutely ill diaphoretic and toxic- appearing. Visibly short of breath with audible rhonchi ice and wheezes. Coughing producing fair amount of thick greenish sputum no hemoptysis. Reports chills and sweats. Notes Reviewed: Yes Events from last night noted and discussed with Clinical Staff Current Medication List: Reviewed Currently: Reports: Cough, Wheezing, MORENO, SOB, Sputum, Tobacco Use/Hx, Reflux Sx DVT Prophylaxis: Yes - Physical Examination Vital Signs and I&O: Last Vital Signs Temp 98.4 F 04/02/16 07:00 Pulse 79 04/02/16 07:49 Resp 18 04/02/16 07:49 BP 131/63 04/02/16 07:00 Pulse Ox 95 04/02/16 07:45 Oxygen Pulse Oxygen Saturation 95 O2 Device Venturi Mask Oxygen Flow Rate 35 Fraction of Inspired Oxygen ( 45 FIO2) Intake & Output 03/30/16 03/31/16 04/01/16 04/02/16 23:59 23:59 23:59 23:59 Intake Total 6408 1042 Output Total 400 Balance 6408 642 General: Alert, Oriented x3, Cooperative, Moderate distress HEENT: Normal, PERRLA, EOMI, Anicteric Sclera Neck: Non-tender, Limited range of motion Lymphatics: Normal (No cervical lymphadenopathy. No supraclavicular lymphadenopathy.) Respiratory: Accessory Muscle Use, Diminished, Rales, Retractions, Rhonchi, Tachypnea, Wheezes Cardiovascular: Regular rate, Normal S1, Normal S2, Murmurs GI: Normal bowel sounds, Soft, Non tender, No hepatospenomegaly, No masses, Obese Extremities/Musculoskeletal: Edema, DJD Skin: Warm,Dry and Intact, No rashes, No breakdown, No significant lesion Neurological: Normal speech, Normal tone, Cranial nerves 3-12 NL Psych/Mental Status: Anxious Allergies No Known Allergies Allergy (Verified 04/01/16 19:53) Last Vital Signs Temp 98.4 F 04/02/16 07:00 Pulse 79 04/02/16 07:49 Resp 18 04/02/16 07:49 BP 131/63 04/02/16 07:00 Pulse Ox 95 04/02/16 07:45 04/02/16 05:30 04/02/16 05:30 Abnormal Lab Results 04/01/16 04/01/16 04/01/16 11:17 11:17 11:17 WBC 21.9 H RBC 3.86 L Hgb 12.4 L Hct 37.4 L MCV 97 H MCH 32.1 H MCHC MPV 6.9 L Band Neutrophils % 17 H Lymphocytes % (Manual) 7 L Absolute Neutrophils 18.40 H Absolute Lymphocytes PT APTT pH pCO2 pO2 HCO3 Total CO2 Base Excess Sodium 131 L Chloride 92 L Anion Gap BUN 40 H Creatinine 1.60 H Estimated GFR (MDRD) 43 L Glucose 229 H POC Capillary Glucose Hemoglobin A1c Lactic Acid 2.2 H Calcium Lipase 11 L TSH Urine Protein Urine WBC 04/01/16 04/01/16 04/01/16 11:17 11:17 11:17 WBC RBC Hgb Hct MCV MCH MCHC MPV Band Neutrophils % Lymphocytes % (Manual) Absolute Neutrophils Absolute Lymphocytes PT 12.1 H APTT pH pCO2 pO2 HCO3 Total CO2 Base Excess Sodium Chloride Anion Gap BUN Creatinine Estimated GFR (MDRD) Glucose POC Capillary Glucose Hemoglobin A1c 6.1 H Lactic Acid Calcium Lipase TSH 0.31 L Urine Protein Urine WBC 04/01/16 04/01/16 04/01/16 11:34 17:56 20:20 WBC RBC Hgb Hct MCV MCH MCHC MPV Band Neutrophils % Lymphocytes % (Manual) Absolute Neutrophils Absolute Lymphocytes PT APTT pH pCO2 46.0 H pO2 61.0 L HCO3 27.2 H Total CO2 28.6 H Base Excess Sodium Chloride Anion Gap BUN Creatinine Estimated GFR (MDRD) Glucose POC Capillary Glucose 172 H 132 H Hemoglobin A1c Lactic Acid Calcium Lipase TSH Urine Protein Urine WBC 04/02/16 04/02/16 04/02/16 00:36 05:26 05:30 WBC RBC Hgb Hct MCV MCH MCHC MPV Band Neutrophils % Lymphocytes % (Manual) Absolute Neutrophils Absolute Lymphocytes PT APTT pH pCO2 pO2 HCO3 Total CO2 Base Excess Sodium Chloride Anion Gap 17 H BUN 36 H Creatinine Estimated GFR (MDRD) Glucose 167 H POC Capillary Glucose 160 H Hemoglobin A1c Lactic Acid Calcium 7.3 L Lipase TSH Urine Protein 2+ H Urine WBC 10-20 H 04/02/16 04/02/16 04/02/16 05:30 05:30 05:33 WBC 15.5 H RBC 3.67 L Hgb 11.9 L Hct 36.1 L MCV 98 H MCH 32.3 H MCHC 32.9 L MPV 7.2 L Band Neutrophils % 29 H Lymphocytes % (Manual) 3 L Absolute Neutrophils 15.04 H Absolute Lymphocytes 0.47 L PT 12.7 H APTT 39.5 H pH 7.240 L* pCO2 56.0 H pO2 74.0 L HCO3 Total CO2 Base Excess -4.2 L Sodium Chloride Anion Gap BUN Creatinine Estimated GFR (MDRD) Glucose POC Capillary Glucose Hemoglobin A1c Lactic Acid Calcium Lipase TSH Urine Protein Urine WBC Lab/DI/Studies Reviewed: Allergies No Known Allergies Allergy (Verified 04/01/16 19:53) Last Vital Signs Temp 98.4 F 04/02/16 07:00 Pulse 79 04/02/16 07:49 Resp 18 04/02/16 07:49 BP 131/63 04/02/16 07:00 Pulse Ox 95 04/02/16 07:45 04/02/16 05:30 04/02/16 05:30 Abnormal Lab Results 04/01/16 04/01/16 04/01/16 11:17 11:17 11:17 WBC 21.9 H RBC 3.86 L Hgb 12.4 L Hct 37.4 L MCV 97 H MCH 32.1 H MCHC MPV 6.9 L Band Neutrophils % 17 H Lymphocytes % (Manual) 7 L Absolute Neutrophils 18.40 H Absolute Lymphocytes PT APTT pH pCO2 pO2 HCO3 Total CO2 Base Excess Sodium 131 L Chloride 92 L Anion Gap BUN 40 H Creatinine 1.60 H Estimated GFR (MDRD) 43 L Glucose 229 H POC Capillary Glucose Hemoglobin A1c Lactic Acid 2.2 H Calcium Lipase 11 L TSH Urine Protein Urine WBC 04/01/16 04/01/16 04/01/16 11:17 11:17 11:17 WBC RBC Hgb Hct MCV MCH MCHC MPV Band Neutrophils % Lymphocytes % (Manual) Absolute Neutrophils Absolute Lymphocytes PT 12.1 H APTT pH pCO2 pO2 HCO3 Total CO2 Base Excess Sodium Chloride Anion Gap BUN Creatinine Estimated GFR (MDRD) Glucose POC Capillary Glucose Hemoglobin A1c 6.1 H Lactic Acid Calcium Lipase TSH 0.31 L Urine Protein Urine WBC 04/01/16 04/01/16 04/01/16 11:34 17:56 20:20 WBC RBC Hgb Hct MCV MCH MCHC MPV Band Neutrophils % Lymphocytes % (Manual) Absolute Neutrophils Absolute Lymphocytes PT APTT pH pCO2 46.0 H pO2 61.0 L HCO3 27.2 H Total CO2 28.6 H Base Excess Sodium Chloride Anion Gap BUN Creatinine Estimated GFR (MDRD) Glucose POC Capillary Glucose 172 H 132 H Hemoglobin A1c Lactic Acid Calcium Lipase TSH Urine Protein Urine WBC 04/02/16 04/02/16 04/02/16 00:36 05:26 05:30 WBC RBC Hgb Hct MCV MCH MCHC MPV Band Neutrophils % Lymphocytes % (Manual) Absolute Neutrophils Absolute Lymphocytes PT APTT pH pCO2 pO2 HCO3 Total CO2 Base Excess Sodium Chloride Anion Gap 17 H BUN 36 H Creatinine Estimated GFR (MDRD) Glucose 167 H POC Capillary Glucose 160 H Hemoglobin A1c Lactic Acid Calcium 7.3 L Lipase TSH Urine Protein 2+ H Urine WBC 10-20 H 04/02/16 04/02/16 04/02/16 05:30 05:30 05:33 WBC 15.5 H RBC 3.67 L Hgb 11.9 L Hct 36.1 L MCV 98 H MCH 32.3 H MCHC 32.9 L MPV 7.2 L Band Neutrophils % 29 H Lymphocytes % (Manual) 3 L Absolute Neutrophils 15.04 H Absolute Lymphocytes 0.47 L PT 12.7 H APTT 39.5 H pH 7.240 L* pCO2 56.0 H pO2 74.0 L HCO3 Total CO2 Base Excess -4.2 L Sodium Chloride Anion Gap BUN Creatinine Estimated GFR (MDRD) Glucose POC Capillary Glucose Hemoglobin A1c Lactic Acid Calcium Lipase TSH Urine Protein Urine WBC Patient Name: DEBBIE READ LOC: ICU : 1945 AGE: 70 Order Date:04/01/16 Date of Service: Report # [id number] Ord Physician: Justen Harrington MD Exam # [id number] Emergency Physician: Sabino Valenzuela DO Exam(s): [id number] RAD/DG CHEST PORTABLE CLINICAL DATA: Respiratory failure. EXAM: PORTABLE CHEST 1 VIEW COMPARISON: 04/01/2016 . FINDINGS: Mediastinum and hilar structures normal. Interim near complete clearing of bibasilar pulmonary infiltrates. Heart size normal. No pleural effusion or pneumothorax. No acute bony abnormality. IMPRESSION: Interim near complete clearing of bibasilar pulmonary infiltrates. Electronically Signed By: Gibson Lares On: 04/02/2016 07:54 - Assessment (1) Acute respiratory failure with hypoxia Acute J96.01 - ACUTE RESPIRATORY FAILURE WITH HYPOXIA Comment/Plan: Continue O2 nebs and pulmonary toilet. Monitor pulmonary status. Continue Venti mask. Weaned off oxygen as tolerated. Continue BiPAP HS and off and on during the daytime (2) Community acquired bacterial pneumonia Acute J15.9 - UNSPECIFIED BACTERIAL PNEUMONIA Comment/Plan: Bilateral and multi lobar. Continue broad-spectrum antibiotics monitor cultures.. (3) Atrial fibrillation with RVR Acute I48.91 - UNSPECIFIED ATRIAL FIBRILLATION Comment/Plan: Required multiple agents for rate control. Keep K more than 4 magnesium more than 2. Echo report pending (4) Sepsis Acute A41.9 - SEPSIS, UNSPECIFIED ORGANISM Qualifiers: Sepsis type: sepsis due to unspecified organism Qualified Code(s): A41.9 - Sepsis, unspecified organism Comment/Plan: Continue IV fluids and IV antibiotics monitor cultures. Continue IV steroids as well.. (5) COPD exacerbation Acute J44.1 - CHRONIC OBSTRUCTIVE PULMONARY DISEASE W (ACUTE) EXACERBATION Comment/Plan: Continue IV steroids and nebulized bronchodilators. Continue mucolytics and aggressive pulmonary toileting. (6) Gastroesophageal reflux disease Chronic K21.9 - GASTRO-ESOPHAGEAL REFLUX DISEASE WITHOUT ESOPHAGITIS Comment /Plan: Continue PPI (7) Hypothyroidism Chronic E03.9 - HYPOTHYROIDISM, UNSPECIFIED Comment/Plan: Adjust Synthroid dose (8) Obstructive sleep apnea Chronic G47.33 - OBSTRUCTIVE SLEEP APNEA (ADULT) (PEDIATRIC) Comment/Plan: Continue BiPAP HS (9) Anemia Acute D64.9 - ANEMIA, UNSPECIFIED Qualifiers: Anemia type: unspecified type Qualified Code(s): D64.9 - Anemia, unspecified Comment/Plan: Monitor counts transfuse as needed and indicated. (10) Renal insufficiency Acute N28.9 - DISORDER OF KIDNEY AND URETER, UNSPECIFIED Comment/Plan: Monitor renal function maintain hydration.. (11) Hyponatremia Acute E87.1 - HYPO-OSMOLALITY AND HYPONATREMIA Comment/Plan: Continue IV normal saline, monitor BMP.. Case Care Discussed with: Patient, Consultants, Family, Nursing Staff, Respiratory Therapy, Payroll Master Education/Counseling Given To: Patient Education/Counseling Given Regarding: Diagnosis, Treatment, Prognosis, Follow Up Total Time: 65 min . Critical Care: Yes Code: 291
[2016-04-02] MEDS: TAMSULOSIN HCL 0.4 MG CAP PO SCH (10:05)
[2016-04-02] MEDS: ASPIRIN 325 MG TAB PO SCH (10:05)
[2016-04-02] MEDS: FUROSEMIDE 40 MG TAB PO SCH (10:05)
[2016-04-02] MEDS: PRAVASTATIN 40 MG TABLET PO SCH (10:06)
[2016-04-02] MEDS: METOPROLOL (TOPROL-XL) 50 MG TAB PO SCH (10:06)
[2016-04-02] MEDS: CALCIUM CARBONATE 500 MG TAB PO SCH (10:06)
[2016-04-02] MEDS: VITAMINS, MULTIPLE CAP PO SCH (10:07)
[2016-04-02] MEDS: GUAIFENESIN 600 MG LA TAB PO SCH ×2 (10:09→21:58)
[2016-04-02] MEDS: ENOXAPARIN 100 MG PFS SQ SCH (12:12)
[2016-04-02] MEDS: CEFTRIAXONE 1 GM in D5W 100 ML IV SCH (12:14)
[2016-04-02] MEDS: AMIODARONE 360 MG/200 ML RTU IV SCH (12:18)
[2016-04-02] MEDS: LISINOPRIL 2.5 MG TAB PO SCH (15:53)
--- NOTE | 2016-04-02 15:54 | CAPUECHO ---
INDICATION: CHF HEIGHT: 175.3 cm (5 ft 9.0 in) WEIGHT: 104.3 kg (230.0 lbs) BP: 131/63 BSA: 2.735384 m MEASUREMENTS 2D RVIDd: 3.8 cm LVOT Diam: 2.1 cm LA Diam: 3.5 cm EF Biplane: 64.98 % LAESV MOD A4C: 60.5 ml LAESV MOD A2C: 49.1 ml LAESV Index (A-L): 29.57 ml/m M-MODE IVSd: 1.0 cm LVIDd: 5.8 cm LVPWd: 1.0 cm LVIDs: 3.8 cm EF(Teich): 64 % DOPPLER MV E Justice: 0.98 m/s MV A Justice: 0.92 m/s MV PHT: 60.37 ms MVA By PHT: 3.64 cm LVOT Vmax: 1.19 m/s AV Vmax: 2.56 m/s TR Vmax: 2.51 m/s TR maxP mmHg RVSP: 35.28 mmHg FINDINGS ------- Procedure:2D images, m-mode, color and spectral Doppler were obtained and reviewed. ECG rhythm:Sinus rhythm. Study quality:This was a technically adequate study. Left Ventricle:The left ventricular size is normal. Overall left ventricular systolic function is normal with, an EF between 60 - 65 %. Mitral Doppler inflow pattern suggests diastolic filling abn ormality. Right Ventricle:The right ventricle is normal in size and function. Left Atrium:The left atrium is normal in size. Right Atrium:The right atrium is normal in size and function. Aortic Valve:Aortic valve is trileaflet and is moderately thickened. There is moderate aortic valv e sclerosis. There is mild aortic stenosis present. The aortic valve area by continuity equation is 1.6 cm square}. Peak/mean gradient across the valve is {26 maxPG} / {17 meanPG}. Mitral Valve:Normal appearing mitral valve. There is trace to mild mitral regurgitation. Tricuspid Valve:The tricuspid valve appears structurally normal. Mild tricuspid regurgitation pres ent. The right ventricular systolic pressure, as measured by Doppler, is 35 mmhg. Pulmonic Valve:The pulmonic valve is normal. Trace/mild (physiologic) pulmonic regurgitation. Aorta:The aortic root, ascending aorta and aortic arch appear normal. IVC:Normal inferior vena cava with normal inspiratory collapse. Pericardium:There is no pericardial effusion. CONCLUSIONS 1. The left ventricular size is normal. 2. Overall left ventricular systolic function is normal with, an EF between 60 - 65 %. 3. Mitral Doppler inflow pattern suggests diastolic filling abnormality. 4. There is mild aortic stenosis present. 5. Peak/mean gradient across the valve is {26 maxPG} / {17 meanPG}. 6. There is trace to mild mitral regurgitation. 7. Mild tricuspid regurgitation present. Electronically Signed By: Darshan Dunn MD -- Electronically Signed On: 15:54:12
[2016-04-02] MEDS: AZITHROMYCIN 500 MG in D5W 250 ML IV SCH (15:59)
--- NOTE | 2016-04-02 18:03 | PCM.CARD ---
- Subjective Current Assessment: No New Symptoms (Patient is still in respiratory distress and on BiPAP. Fortunately he is now in sinus rhythm and this will help his overall condition.) Vital Signs: Last Vital Signs Temp 98.6 F 04/02/16 17:41 Pulse 90 04/02/16 17:41 Resp 26 H 04/02/16 16:11 BP 143/60 04/02/16 17:41 Pulse Ox 97 04/02/16 17:41 EKG Rhythm: Sinus Rhythm Heart Sounds: S1 & S2 (Sinus rhythm heart sounds regular. Murmur of aortic stenosis heard. Lungs bilateral air entry distant and prolonged expiration.) - Assessment/Plan (1) Paroxysmal atrial fibrillation Acute I48.0 - PAROXYSMAL ATRIAL FIBRILLATION Comment/Plan: Patient is in now in sinus rhythm. He is on amiodarone drip. I will leave him on the drip for today and continue this for a total of approximately 48 hours. Benefits risks explained to him. I thing him being in sinus rhythm will contribute to his recovery significantly in a better way. At this time he is receiving anticoagulation. (2) Acute respiratory failure with hypoxia Acute J96.01 - ACUTE RESPIRATORY FAILURE WITH HYPOXIA Present on Admission: Yes Comment/Plan: He is on BiPAP and still in respiratory distress. I appreciate hospitalist and inseam trimming machine operator input. (3) Community acquired pneumonia Acute J18.9 - PNEUMONIA, UNSPECIFIED ORGANISM Comment/Plan: Patient is being treated aggressively for his infection. (4) Type 2 diabetes mellitus Acute E11.9 - TYPE 2 DIABETES MELLITUS WITHOUT COMPLICATIONS Present on Admission: Yes with kidney complications with chronic kidney disease without care home use stage 3 (moderate) E11.22 - Type 2 diabetes mellitus with diabetic chronic kidney disease; N18.3 - Chronic kidney disease, stage 3 (moderate) Comment/Plan: He diet was discussed. Again this is managed by internal medicine.
[2016-04-02] MEDS: ACETYLCYSTEINE 20% SOLN 4 ML NEB SCH (21:06)
[2016-04-02] MEDS: GLARGINE INSULIN (LANTUS) 100 UNITS/ML PEN SQ SCH (22:00)
[2016-04-02] MEDS: CHLORHEXIDINE (HIBICLENS) 4 OZ BOTTLE TOP SCH (22:10)
[2016-04-03] MEDS: METHYLPREDNISOLONE 125 MG/2 ML VIAL IV SCH ×5 (00:13→23:13)
[2016-04-03] MEDS: ENOXAPARIN 100 MG PFS SQ SCH ×2 (00:16→11:47)
[2016-04-03] MEDS: AMIODARONE 360 MG/200 ML RTU IV SCH ×3 (00:21→13:29)
[2016-04-03] MEDS: Albuterol/Ipratropium Neb 3 ML NEB NEB SCH ×4 (02:13→20:52)
[2016-04-03 04:13] LABS: ALLEN'S TEST PASS; TCO2 32.8 MMOL/L (23-27)
[2016-04-03 04:19] LABS: ABG Draw Site Right Radial; ABG Draw Tech BKL
[2016-04-03 04:20] LABS: BI-PAP 16/8 RATE 10 cm H2O
[2016-04-03] MEDS: SODIUM CHLORIDE 0.9% 3 ML FLUSH FLUSH SCH ×2 (07:09→18:04)
[2016-04-03] MEDS: REGULAR INSULIN 100 UNITS/ML - 3 ML VIAL SQ SCH ×4 (07:10→21:34)
[2016-04-03] MEDS ORDERED: FUROSEMIDE 20 MG/2 ML VIAL IV ONE (08:21)
[2016-04-03] MEDS ORDERED: METHYLPREDNISOLONE 125 MG/2 ML VIAL IV ONE (08:22)
[2016-04-03] MEDS ORDERED: MORPHINE 2 MG/ML INJECTION IV PRN (08:23)
--- NOTE | 2016-04-03 08:29 | GENMEDPROG ---
Subjective Note: Patient in bed on BiPAP. Responsive follows commands ABG shows significant CO2 retention up to 72. BiPAP settings adjusted. Patient reports cough productive foamy sputum no hemoptysis. Notes Reviewed: Yes Events from last night noted and discussed with Clinical Staff Current Medication List: Reviewed Currently: Reports: Cough, Wheezing, MORENO, SOB, Sputum, Tobacco Use/Hx, Reflux Sx DVT Prophylaxis: Yes - Physical Examination Vital Signs and I&O: Last Vital Signs Temp 97.6 F 04/03/16 07:00 Pulse 87 04/03/16 07:00 Resp 28 H 04/03/16 07:00 BP 176/79 04/03/16 07:00 Pulse Ox 92 04/03/16 07:00 Oxygen Pulse Oxygen Saturation 92 O2 Device BiPAP Oxygen Flow Rate 4 Fraction of Inspired Oxygen ( 35 FIO2) Intake & Output 03/31/16 04/01/16 04/02/16 04/03/16 23:59 23:59 23:59 23:59 Intake Total 6408 3563 1969 Output Total 2300 800 Balance 6408 1263 1169 Patient's weight 106.866 kg General: Alert, Oriented x3, Cooperative, Moderate distress HEENT: Normal, PERRLA, EOMI, Anicteric Sclera Neck: Non-tender, Limited range of motion Lymphatics: Normal (No cervical lymphadenopathy. No supraclavicular lymphadenopathy.) Respiratory: Accessory Muscle Use, Diminished, Rales, Retractions, Rhonchi, Tachypnea, Wheezes Cardiovascular: Regular rate, Normal S1, Normal S2, Murmurs GI: Normal bowel sounds, Soft, Non tender, No hepatospenomegaly, No masses, Obese Extremities/Musculoskeletal: Edema, DJD Skin: Warm,Dry and Intact, No rashes, No breakdown, No significant lesion Neurological: Normal speech, Normal tone, Cranial nerves 3-12 NL Psych/Mental Status: Anxious Lab/DI/Studies Reviewed: Allergies No Known Allergies Allergy (Verified 04/01/16 19:53) Last Vital Signs Temp 97.6 F 04/03/16 07:00 Pulse 87 04/03/16 07:00 Resp 28 H 04/03/16 07:00 BP 176/79 04/03/16 07:00 Pulse Ox 92 04/03/16 07:00 04/02/16 05:30 04/02/16 05:30 Abnormal Lab Results 04/02/16 04/02/16 04/02/16 10:48 16:40 21:04 pH pCO2 pO2 HCO3 Total CO2 POC Capillary Glucose 189 H 213 H 158 H 04/03/16 04/03/16 04:08 05:59 pH 7.230 L* pCO2 73.0 H* pO2 71.0 L HCO3 30.6 H Total CO2 32.8 H POC Capillary Glucose 133 H - Assessment (1) Acute respiratory failure with hypoxia Acute J96.01 - ACUTE RESPIRATORY FAILURE WITH HYPOXIA Comment/Plan: Continue O2, continue BiPAP therapy. Monitor pulmonary status. Patient may require ventilatory support. Monitor chest x-ray and ABG. (2) Community acquired bacterial pneumonia Acute J15.9 - UNSPECIFIED BACTERIAL PNEUMONIA Comment/Plan: Bilateral and multi lobar. Continue broad-spectrum antibiotics monitor cultures.. (3) Atrial fibrillation with RVR Acute I48.91 - UNSPECIFIED ATRIAL FIBRILLATION Comment/Plan: Required multiple agents for rate control. Keep K more than 4 magnesium more than 2. Echo shows EF of 65% with diastolic dysfunction. Rate controlled. As per Cardiology (4) COPD exacerbation Acute J44.1 - CHRONIC OBSTRUCTIVE PULMONARY DISEASE W (ACUTE) EXACERBATION Comment/Plan: Continue IV steroids and nebulized bronchodilators. Continue mucolytics and aggressive pulmonary toileting. (5) Sepsis Acute A41.9 - SEPSIS, UNSPECIFIED ORGANISM Qualifiers: Sepsis type: sepsis due to unspecified organism Qualified Code(s): A41.9 - Sepsis, unspecified organism Comment/Plan: Continue IV fluids and IV antibiotics monitor cultures. Continue IV steroids as well.. (6) Gastroesophageal reflux disease Chronic K21.9 - GASTRO-ESOPHAGEAL REFLUX DISEASE WITHOUT ESOPHAGITIS Comment /Plan: Continue PPI (7) Hypothyroidism Chronic E03.9 - HYPOTHYROIDISM, UNSPECIFIED Comment/Plan: Adjust Synthroid dose (8) Obstructive sleep apnea Chronic G47.33 - OBSTRUCTIVE SLEEP APNEA (ADULT) (PEDIATRIC) Comment/Plan: Continue BiPAP HS (9) Anemia Acute D64.9 - ANEMIA, UNSPECIFIED Qualifiers: Anemia type: unspecified type Qualified Code(s): D64.9 - Anemia, unspecified Comment/Plan: Monitor counts transfuse as needed and indicated. (10) Renal insufficiency Acute N28.9 - DISORDER OF KIDNEY AND URETER, UNSPECIFIED Comment/Plan: Monitor renal function maintain hydration.. (11) Hyponatremia Acute E87.1 - HYPO-OSMOLALITY AND HYPONATREMIA Comment/Plan: Continue IV normal saline, monitor BMP.. Case Care Discussed with: Patient, Consultants, Family, Nursing Staff, Respiratory Therapy, Mortgage Lender Education/Counseling Given To: Patient Education/Counseling Given Regarding: Diagnosis, Treatment, Prognosis, Follow Up Total Time: 60 min . Critical Care: Yes Code: 291
[2016-04-03] MEDS: NS 1,000 ML IV SCH (08:39)
[2016-04-03 08:42] LABS: MPV 6.7 fL (7.4-10.4)
[2016-04-03 09:01] LABS: BLOOD UREA NITROGEN 33 MG/DL (9-20); CALCIUM 8.2 MG/DL (8.4-10.2); CALCULATED OSMOLALITY 284 MOs/Kg (270-290); CHLORIDE 106 mEq/L (98-107); GLUCOSE 164 MG/DL (70-99); SODIUM LEVEL 142 mEq/L (137-146)
[2016-04-03 09:16] LABS: SEG NEUTROPHIL 79 % (45-76); TOTAL CELL COUNT 100
[2016-04-03] MEDS: ACETYLCYSTEINE 20% SOLN 4 ML NEB SCH ×2 (09:40→20:54)
--- NOTE | 2016-04-03 10:12 | PCM.PULM ---
Chief Complaint: Acute respiratory failure on chronic with hypercapnia Pneumonia COPD exacerbation Atrial fibrillation with RVR patient in Intensive care unit alert and responsive follows commands. family at bedside. On BIPAP and supplemental oxygen Current complaints: SOB,MORENO,cough,wheeze. Medication list reviewed:yes Notes reviewed:yes, Events from last night noted and discussed with Clinical Staff DT/GI prophylaxis:yes - Physical Examination Vital Signs and I&O: Last Vital Signs Temp 97.6 F 04/03/16 07:00 Pulse 85 04/03/16 08:00 Resp 23 04/03/16 09:31 BP 176/76 04/03/16 08:00 Pulse Ox 94 04/03/16 09:34 Oxygen Pulse Oxygen Saturation 94 O2 Device BiPAP Oxygen Flow Rate 4 Fraction of Inspired Oxygen ( 35 FIO2) Intake & Output 03/31/16 04/01/16 04/02/16 04/03/16 23:59 23:59 23:59 23:59 Intake Total 6408 3563 1969 Output Total 2300 800 Balance 6408 1263 1169 Patient's weight 106.866 kg General: Alert, Oriented x3, Cooperative, Mild distress, Obese, Weakness, Fatigue Respiratory: Accessory Muscle Use, Diminished, Rhonchi, Tachypnea, Wheezes Cardiovascular: Regular rate, Regular rate and rhythm, Normal S1, No Gallops, Rubs/Murmurs, Normal S2, Good Pedal Pulses (Dp pulses 2+ bilaterally) GI: Normal bowel sounds, Soft, Non tender, No hepatospenomegaly, No masses, Obese Extremities/Musculoskeletal: Normal pulses Skin: Warm,Dry and Intact, No rashes, No breakdown, No significant lesion Neurological: Normal Steady Gait, Normal speech, Normal tone, Cranial nerves 3- 12 NL, Reflexes 2+ Psych/Mental Status: Normal Affect Result Diagrams: 04/03/16 08:33 04/03/16 08:33 Labs (last 24 hours): Laboratory Results - last 24 hr 04/03/16 04/03/16 04/03/16 04:08 05:59 08:33 WBC RBC Hgb Hct MCV MCH MCHC RDW Plt Count MPV Neut % (Auto) Lymph % (Auto) Wilcox % (Auto) Eos % (Auto) Baso % (Auto) Absolute Neuts (auto) Absolute Lymphs (auto) Seg Neuts % (Manual) Band Neutrophils % Lymphocytes % (Manual) Monocytes % (Manual) Myelocytes % Absolute Neutrophils Absolute Lymphocytes Vacuolated Neuts Toxic Granulation Platelet Estimate RBC Morphology Puncture Site Right radial pH 7.230 L* pCO2 73.0 H* pO2 71.0 L HCO3 30.6 H Total CO2 32.8 H Base Excess 1.0 FiO2 % 35% Mode BiPAP 16/8 rate 10 Specimen Drawn By Bkl Sodium 142 Potassium 5.0 Chloride 106 Carbon Dioxide 25 Anion Gap 16 BUN 33 H Creatinine 0.90 Estimated GFR (MDRD) > 60 Glucose 164 H POC Capillary Glucose 133 H Calculated Osmolality 284 Calcium 8.2 L Magnesium 2.10 04/03/16 08:33 WBC 22.4 H RBC 4.17 L Hgb 13.5 L D Hct 41.8 L MCV 101 H MCH 32.4 H MCHC 32.2 L RDW 13.8 Plt Count 300 MPV 6.7 L Neut % (Auto) Cancelled Lymph % (Auto) Cancelled Wilcox % (Auto) Cancelled Eos % (Auto) Cancelled Baso % (Auto) Cancelled Absolute Neuts (auto) Cancelled Absolute Lymphs (auto) Cancelled Seg Neuts % (Manual) 79 H Band Neutrophils % 8 H Lymphocytes % (Manual) 4 L Monocytes % (Manual) 8 Myelocytes % 1 H Absolute Neutrophils 19.49 H Absolute Lymphocytes 0.90 Vacuolated Neuts 1+ Toxic Granulation 1+ Platelet Estimate Norm RBC Morphology 1+ hypo Puncture Site pH pCO2 pO2 HCO3 Total CO2 Base Excess FiO2 % Mode BiPAP Specimen Drawn By Sodium Potassium Chloride Carbon Dioxide Anion Gap BUN Creatinine Estimated GFR (MDRD) Glucose POC Capillary Glucose Calculated Osmolality Calcium Magnesium Lab/DI/Studies Reviewed: EKG: NSR, NO ST or ST wave changes noted Chest x-ray 1 view Chest x-ray was seen personally patient seems to have developed again bibasal infiltrates and atelectasis I suspect it is more atypical pulmonary edema given the fact that it was clear yesterday small bilateral effusions infiltrates cannot be excluded Medications Guaifenesin (Mucinex) 1,200 mg PO Q12 [facility] Stop: 04/16/16 16:59 Last Admin: 04/02/16 10:09 Dose: 1,200 mg Ibuprofen (Motrin) 400 mg PO Q6H PRN; Protocol PRN Reason: Mild Pain or Fever above 100.4 Stop: 04/15/16 16:59 Promethazine HCl (Phenergan) 12.5 mg IV Q6H PRN; Protocol PRN Reason: Nausea/Vomiting - Alternative Stop: 04/15/16 16:59 Pravastatin Sodium (Pravachol) 40 mg PO DAILY [facility] Stop: 04/16/16 08:59 Last Admin: 04/02/16 10:06 Dose: 40 mg Insulin Human Regular (Humulin R) 0 units SQ ACHS [facility] PRN Reason: Protocol Stop: 04/15/16 16:59 Last Admin: 04/02/16 06:21 Dose: 3 units Insulin Glargine (Lantus Pen) 10 units SQ HS [facility] Stop: 04/15/16 16:59 Last Admin: 04/01/16 20:37 Dose: Not Given Lisinopril (Zestril) 2.5 mg PO DAILY [facility] Stop: 04/16/16 17:59 Methylprednisolone Sodium Succinate (Solu-Medrol) 60 mg IV Q6 [facility] Stop: 04/15/16 17:59 Last Admin: 04/02/16 06:22 Dose: 60 mg Metoprolol Succinate (Toprol Xl) 50 mg PO DAILY [facility] Stop: 04/16/16 08:59 Last Admin: 04/02/16 10:06 Dose: 50 mg Multivitamins (Unicap) 1 cap PO 1200 [facility] Stop: 04/16/16 11:59 Last Admin: 04/02/16 10:07 Dose: 1 cap Acetaminophen (Tylenol Tablet) 650 mg PO Q6H PRN; Protocol PRN Reason: Mild Pain or Fever above 100.4 Stop: 04/15/16 16:59 Acetylcysteine (Mucomyst) 4 ml NEB RTBID [facility] Stop: 04/16/16 16:59 Al Hydrox/Mg Hydrox/Simethicone (Maalox Plus, Mylanta) 30 ml PO Q3H PRN PRN Reason: Heartburn or Indigestion Stop: 04/15/16 16:59 Albuterol (Proventil, Ventolin) 3 ml NEB Q2H PRN PRN Reason: Wheezing-1ST Stop: 04/15/16 16:59 Albuterol/Ipratropium (Duoneb) 3 ml NEB Q4H PRN PRN Reason: Dyspnea-2ND OPTION Stop: 04/15/16 13:26 Amiodarone HCl/Dextrose (Nextarone) 360 mg in 200 mls @ 16.666 mls/hr IV Q12H [facility]; 0.5 MG/MIN PRN Reason: Protocol Stop: 04/15/16 23:24 Last Admin: 04/01/16 23:23 Dose: 16.666 mls/hr Aspirin (Aspirin) 325 mg PO DAILY [facility] Stop: 04/16/16 08:59 Last Admin: 04/02/16 10:05 Dose: 325 mg Azithromycin 500 mg/ Dextrose 250 mls @ 250 mls/hr IV Q24H [facility] Stop: 04/06/16 15:59 Last Admin: 04/01/16 16:42 Dose: 250 mls/hr Benzonatate (Tessalon) 200 mg PO TID PRN PRN Reason: Cough - First Option Stop: 04/15/16 16:59 Ceftriaxone Sodium 1 gm/ (Dextrose) 100 mls @ 100 mls/hr IV Q24H [facility] Stop: 04/08/16 16:59 Last Admin: 04/01/16 14:13 Dose: 100 mls/hr Chlorphenir/Hydrocodone Polistirex (Tussionex) 5 ml PO BID PRN PRN Reason: Cough - Alternative Stop: 04/15/16 16:59 Enoxaparin Sodium (Lovenox) 100 mg SQ Q12H [facility] Stop: 04/09/16 16:59 Niacin (Niaspan) 1,000 mg PO DAILY [facility] Stop: 04/16/16 08:59 Last Admin: 04/02/16 10:06 Dose: 1,000 mg Ondansetron HCl (Zofran) 4 mg IV Q6H PRN PRN Reason: Nausea/Vomiting - First Option Stop: 04/15/16 16:59 Tamsulosin HCl (Flomax) 0.4 mg PO DAILY [facility] Stop: 04/16/16 08:59 Last Admin: 04/02/16 10:05 Dose: 0.4 mg Verapamil HCl (Calan, Isoptin) 2.5 mg IV Q5MIN PRN PRN Reason: HR Above 110 beats/min Stop: 04/04/16 19:01 Last Admin: 04/01/16 23:06 Dose: 2.5 mg Acetylcysteine (Mucomyst) 4 ml NEB RTBID [facility] Stop: 04/16/16 16:59 Last Admin: 04/03/16 09:40 Dose: 4 ml Multivitamins (Unicap) 1 cap PO 1200 [facility] Stop: 04/16/16 11:59 Last Admin: 04/02/16 10:07 Dose: 1 cap Furosemide 100 mg/ Sodium (Chloride) 50 mls @ 5 mls/hr IV Q10H [facility]; 10 MG/HR PRN Reason: Protocol Stop: 04/17/16 10:59 Last Admin: 04/03/16 11:18 Dose: 5 mls/hr Sodium Chloride (Normal Saline) 1,000 mls @ 55 mls/hr IV Q24H [facility] Stop: 04/15/16 16:59 Last Admin: 04/03/16 08:39 Dose: 55 mls/hr - Assessment/Plan (1) Acute respiratory failure with hypoxia Acute J96.01 - ACUTE RESPIRATORY FAILURE WITH HYPOXIA Comment/Plan: I would start the patient on Lasix drip to keep him in significant negative balance as it seems like his congestive heart failure gets worse continue the current antibiotics. Patient has been on Rocephin and Zithromax along with Solu -Medrol 60 mg IV q.6 hours with nebulizers requires BiPAP 20 x 8 with 35% oxygen and has been in critically ill condition. His blood gases getting worse. Chest x-ray shows worsening of bibasilar infiltrates again which seems more consistent with congestive heart failure since they were clear yesterday and were there day before, repeat a blood gases and chest x-ray in the morning (2) Atrial fibrillation with RVR Acute I48.91 - UNSPECIFIED ATRIAL FIBRILLATION (3) COPD exacerbation Acute J44.1 - CHRONIC OBSTRUCTIVE PULMONARY DISEASE W (ACUTE) EXACERBATION (4) Community acquired bacterial pneumonia Acute J15.9 - UNSPECIFIED BACTERIAL PNEUMONIA
[2016-04-03] MEDS: METOPROLOL (TOPROL-XL) 50 MG TAB PO SCH (11:18)
[2016-04-03] MEDS: Furosemide 100 MG in NS 40 ML IV SCH ×2 (11:18→21:30)
[2016-04-03] MEDS: ASPIRIN 325 MG TAB PO SCH (11:18)
[2016-04-03] MEDS: LISINOPRIL 2.5 MG TAB PO SCH (11:18)
[2016-04-03] MEDS: PRAVASTATIN 40 MG TABLET PO SCH (11:18)
[2016-04-03] MEDS: TAMSULOSIN HCL 0.4 MG CAP PO SCH (11:18)
[2016-04-03] MEDS: GUAIFENESIN 600 MG LA TAB PO SCH ×2 (11:18→22:00)
--- NOTE | 2016-04-03 11:31 | DIRPT ---
CLINICAL DATA: Respiratory distress. EXAM: PORTABLE CHEST 1 VIEW COMPARISON: 04/02/2016 FINDINGS: Mild cardiomegaly stable. Changes of COPD are again seen. Mild bibasilar pulmonary infiltrates show no significant change. No definite pleural effusions or pneumothorax visualized. IMPRESSION: No significant change in mild bibasilar pulmonary infiltrates. Stable cardiomegaly and COPD. Electronically Signed By: Jaziel Sky M.D. On: 04/03/2016 11:28
[2016-04-03] MEDS: FUROSEMIDE 40 MG TAB PO SCH (11:41)
[2016-04-03] MEDS: NITROGLYCERINE 2 % OINTMENT PACK TOP SCH ×3 (11:47→23:21)
[2016-04-03] MEDS: CALCIUM CARBONATE 500 MG TAB PO SCH (11:48)
[2016-04-03] MEDS: VITAMINS, MULTIPLE CAP PO SCH (11:48)
[2016-04-03] MEDS: CEFTRIAXONE 1 GM in D5W 100 ML IV SCH (14:20)
--- NOTE | 2016-04-03 15:52 | PCM.CARD ---
- Subjective Current Assessment: No New Symptoms (Patient mentions to me that he feels some better. He is not as much as in respiratory distress. He is alert and awake he has a bypass mask) Vital Signs: Last Vital Signs Temp 97.6 F 04/03/16 15:15 Pulse 81 04/03/16 15:00 Resp 21 04/03/16 11:34 BP 141/63 04/03/16 15:00 Pulse Ox 94 04/03/16 15:00 EKG Rhythm: Sinus Rhythm (ly.And cmmunicaes appropr) Heart Sounds: S1 & S2 (Heart sounds irregular lungs bilateral air entry with distant sounds and prolonged expiration) - Assessment/Plan (1) Paroxysmal atrial fibrillation Acute I48.0 - PAROXYSMAL ATRIAL FIBRILLATION Comment/Plan: Currently in sinus rhythm. I will keep him on amiodarone drip. His blood gas does not look good and I worry that if he goes back into atrial fibrillation this might compromise some of the gains we have made in the past year or 2. Risks explained any vocalized understanding. (2) Acute respiratory failure with hypoxia Acute J96.01 - ACUTE RESPIRATORY FAILURE WITH HYPOXIA Present on Admission: Yes Comment/Plan: Patient's blood gas reveals him to be still in respiratory failure. His managed closely by the hospitalist service. (3) Community acquired pneumonia Acute J18.9 - PNEUMONIA, UNSPECIFIED ORGANISM Comment/Plan: Treated aggressively with antibiotics. (4) Type 2 diabetes mellitus Acute E11.9 - TYPE 2 DIABETES MELLITUS WITHOUT COMPLICATIONS Present on Admission: Yes with kidney complications with chronic kidney disease without custodial use stage 3 (moderate) E11.22 - Type 2 diabetes mellitus with diabetic chronic kidney disease; N18.3 - Chronic kidney disease, stage 3 (moderate) Comment/Plan: Diet was discussed. Weight reduction was stressed.
[2016-04-03] MEDS: AZITHROMYCIN 500 MG in D5W 250 ML IV SCH (16:19)
[2016-04-03] MEDS: GLARGINE INSULIN (LANTUS) 100 UNITS/ML PEN SQ SCH (21:33)
[2016-04-03] MEDS: CHLORHEXIDINE (HIBICLENS) 4 OZ BOTTLE TOP SCH (21:41)
[2016-04-04] MEDS: ENOXAPARIN 100 MG PFS SQ SCH ×3 (00:43→23:29)
[2016-04-04] MEDS: AMIODARONE 360 MG/200 ML RTU IV SCH ×3 (01:33→20:00)
[2016-04-04] MEDS: Albuterol/Ipratropium Neb 3 ML NEB NEB SCH ×4 (02:11→21:08)
[2016-04-04 04:49] LABS: ALLEN'S TEST PASS; BEb 10.6 (+/- 2); TCO2 41.1 MMOL/L (23-27)
[2016-04-04 04:52] LABS: ABG Draw Site Right Radial; ABG Draw Tech BKL
[2016-04-04 05:30] LABS: MPV 7.3 fL (7.4-10.4)
[2016-04-04 05:45] LABS: BLOOD UREA NITROGEN 41 MG/DL (9-20); CALCIUM 7.8 MG/DL (8.4-10.2); CALCULATED OSMOLALITY 286 MOs/Kg (270-290); CHLORIDE 97 mEq/L (98-107); GLUCOSE 183 MG/DL (70-99); SODIUM LEVEL 141 mEq/L (137-146)
[2016-04-04] MEDS: NITROGLYCERINE 2 % OINTMENT PACK TOP SCH ×4 (06:32→23:32)
[2016-04-04] MEDS: METHYLPREDNISOLONE 125 MG/2 ML VIAL IV SCH ×2 (06:33→11:56)
[2016-04-04] MEDS: SODIUM CHLORIDE 0.9% 3 ML FLUSH FLUSH SCH ×2 (06:33→17:45)
[2016-04-04] MEDS: REGULAR INSULIN 100 UNITS/ML - 3 ML VIAL SQ SCH ×5 (06:38→23:11)
--- NOTE | 2016-04-04 07:45 | DIRPT ---
CLINICAL DATA: Acute respiratory failure. Respiratory distress. EXAM: PORTABLE CHEST 1 VIEW COMPARISON: None. FINDINGS: Pulmonary hyperinflation again seen, consistent with COPD. Mild cardiomegaly stable. Mild bibasilar infiltrates are again seen which are unchanged. No definite pneumothorax or pleural effusion visualized. IMPRESSION: No significant change in mild bibasilar infiltrates. Stable cardiomegaly and COPD. Electronically Signed By: Jaziel Sky M.D. On: 04/04/2016 07:42
--- NOTE | 2016-04-04 08:41 | PCM.CARD ---
- Subjective Current Assessment: No New Symptoms (Patient denies any symptoms from a cardiovascular standpoint.) Vital Signs: Last Vital Signs Temp 97.6 F 04/04/16 07:00 Pulse 79 04/04/16 08:00 Resp 25 H 04/04/16 07:00 BP 137/75 04/04/16 08:00 Pulse Ox 93 04/04/16 08:00 Heart Sounds: S1 & S2 (Cardiac patient unchanged.. Lungs bilateral air entry with distant sounds) - Assessment/Plan (1) Paroxysmal atrial fibrillation Acute I48.0 - PAROXYSMAL ATRIAL FIBRILLATION Comment/Plan: Patient is in sinus rhythm and we will monitor him closely. I recommend keeping him on amiodarone for another 24 hours after which we can attempt to discontinue it. Hopefully this will help keep him in rhythm. (2) Acute respiratory failure with hypoxia Acute J96.01 - ACUTE RESPIRATORY FAILURE WITH HYPOXIA Present on Admission: Clinically Unable to Determine Comment/Plan: I reviewed his labs and chest x-ray and I think there is an element of infection which is causing his exacerbation of COPD. This is evidenced by his elevated white count and shift to the left and also the chest x-ray findings. In addition her recent echocardiogram has revealed preserved left ventricular systolic function. I will also obtain a BNP today to flexographic press helper in management. (3) Community acquired pneumonia Acute J18.9 - PNEUMONIA, UNSPECIFIED ORGANISM Comment/Plan: As mentioned above patient is treated with antibiotics. 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
[2016-04-04] MEDS: METOPROLOL (TOPROL-XL) 50 MG TAB PO SCH (08:49)
[2016-04-04] MEDS: Furosemide 100 MG in NS 40 ML IV SCH ×2 (08:49→17:32)
[2016-04-04] MEDS: GUAIFENESIN 600 MG LA TAB PO SCH ×2 (08:49→23:12)
[2016-04-04] MEDS: NS 1,000 ML IV SCH ×2 (08:49→14:00)
[2016-04-04] MEDS: ASPIRIN 325 MG TAB PO SCH (08:50)
[2016-04-04] MEDS: LISINOPRIL 2.5 MG TAB PO SCH (08:50)
[2016-04-04] MEDS: TAMSULOSIN HCL 0.4 MG CAP PO SCH (08:50)
--- NOTE | 2016-04-04 08:50 | GENMEDPROG ---
Subjective Note: Patient in bed, responsive follows commands. Breathing slowly improving still dyspneic with minimal physical exertion. Still requires BiPAP therapy.. Coughing producing fair amount thick sputum. No hemoptysis. Notes Reviewed: Yes Events from last night noted and discussed with Clinical Staff Currently: Reports: Cough, Wheezing, MORENO, SOB, Sputum, Tobacco Use/Hx, Reflux Sx DVT Prophylaxis: Yes - Physical Examination Vital Signs and I&O: Last Vital Signs Temp 97.6 F 04/04/16 07:00 Pulse 79 04/04/16 08:00 Resp 25 H 04/04/16 07:00 BP 137/75 04/04/16 08:00 Pulse Ox 93 04/04/16 08:00 Oxygen Pulse Oxygen Saturation 93 O2 Device Venturi Mask Oxygen Flow Rate 4 Fraction of Inspired Oxygen ( 40 FIO2) Intake & Output 04/01/16 04/02/16 04/03/16 04/04/16 23:59 23:59 23:59 23:59 Intake Total 6408 3563 3287 597 Output Total 2300 6550 1500 Balance 6408 1263 -3263 -903 Patient's weight 106.866 kg 104.19 kg General: Alert, Oriented x3, Cooperative, Moderate distress HEENT: Normal, PERRLA, EOMI, Anicteric Sclera Neck: Non-tender, Limited range of motion Lymphatics: Normal (No cervical lymphadenopathy. No supraclavicular lymphadenopathy.) Respiratory: Accessory Muscle Use, Diminished, Rales, Retractions, Rhonchi, Tachypnea, Wheezes Cardiovascular: Regular rate, Normal S1, Normal S2, Murmurs GI: Normal bowel sounds, Soft, Non tender, No hepatospenomegaly, No masses, Obese Extremities/Musculoskeletal: Edema, DJD Skin: Warm,Dry and Intact, No rashes, No breakdown, No significant lesion Neurological: Normal speech, Normal tone, Cranial nerves 3-12 NL Psych/Mental Status: Anxious Lab/DI/Studies Reviewed: 04/04/16 04:42 04/04/16 04:42 Abnormal Lab Results 04/03/16 04/03/16 04/04/16 16:41 21:31 04:40 WBC RBC Hgb Hct MCV MCHC MPV Band Neutrophils % Lymphocytes % (Manual) Myelocytes % Absolute Neutrophils pCO2 69.0 H* pO2 67.0 L HCO3 39.0 H Total CO2 41.1 H Base Excess 10.6 H Chloride Carbon Dioxide BUN Glucose POC Capillary Glucose 168 H 166 H Calcium Wot-L-Bxuttihmlca Pept 04/04/16 04/04/16 04/04/16 04:42 04:42 04:42 WBC 20.5 H RBC 3.82 L Hgb 12.1 L D Hct 37.3 L MCV 98 H MCHC 32.4 L MPV 7.3 L Band Neutrophils % 23 H Lymphocytes % (Manual) 5 L Myelocytes % 1 H Absolute Neutrophils 18.86 H pCO2 pO2 HCO3 Total CO2 Base Excess Chloride 97 L Carbon Dioxide 34 H BUN 41 H Glucose 183 H POC Capillary Glucose Calcium 7.8 L Pcx-P-Gqghfhhwbsn Pept 1660 H 04/04/16 04/04/16 04/04/16 06:26 11:02 16:25 WBC RBC Hgb Hct MCV MCHC MPV Band Neutrophils % Lymphocytes % (Manual) Myelocytes % Absolute Neutrophils pCO2 pO2 HCO3 Total CO2 Base Excess Chloride Carbon Dioxide BUN Glucose POC Capillary Glucose 216 H 160 H 172 H Calcium Mfx-H-Jsvivmeowig Pept Allergies No Known Allergies Allergy (Verified 04/01/16 19:53) Patient Name: DEBBIE READ LOC: ICU : 1945 AGE: 70 Order Date:04/03/16 Date of Service: Report # [id number] Ord Physician: Anselmo Sabillon MD Exam # [id number] Emergency Physician: Sabino Valenzuela DO Exam(s): [id number] RAD/DG CHEST PORTABLE CLINICAL DATA: Acute respiratory failure. Respiratory distress. EXAM: PORTABLE CHEST 1 VIEW COMPARISON: None. FINDINGS: Pulmonary hyperinflation again seen, consistent with COPD. Mild cardiomegaly stable. Mild bibasilar infiltrates are again seen which are unchanged. No definite pneumothorax or pleural effusion visualized. IMPRESSION: No significant change in mild bibasilar infiltrates. Stable cardiomegaly and COPD. Electronically Signed By: Jaziel Sky M.D. On: 04/04/2016 07:42 Electronically Signed By: Jaziel Sky MD Electronically - Assessment (1) Acute respiratory failure with hypoxia Acute J96.01 - ACUTE RESPIRATORY FAILURE WITH HYPOXIA Comment/Plan: Continue O2 and BiPAP. Continue aggressive pulmonary toileting. (2) Community acquired bacterial pneumonia Acute J15.9 - UNSPECIFIED BACTERIAL PNEUMONIA Comment/Plan: Bilateral and multi lobar. Continue broad-spectrum antibiotics monitor cultures.. (3) Atrial fibrillation with RVR Acute I48.91 - UNSPECIFIED ATRIAL FIBRILLATION Comment/Plan: Follow by Cardiology, keep K more than 4 magnesium more than 2. Rate controlled (4) COPD exacerbation Acute J44.1 - CHRONIC OBSTRUCTIVE PULMONARY DISEASE W (ACUTE) EXACERBATION Comment/Plan: Continue IV steroids and nebulized bronchodilators. Continue mucolytics and aggressive pulmonary toileting. (5) Gastroesophageal reflux disease Chronic K21.9 - GASTRO-ESOPHAGEAL REFLUX DISEASE WITHOUT ESOPHAGITIS Comment /Plan: Continue PPI (6) Hypothyroidism Chronic E03.9 - HYPOTHYROIDISM, UNSPECIFIED Comment/Plan: Adjust Synthroid dose (7) Obstructive sleep apnea Chronic G47.33 - OBSTRUCTIVE SLEEP APNEA (ADULT) (PEDIATRIC) Comment/Plan: Continue BiPAP HS (8) Anemia Acute D64.9 - ANEMIA, UNSPECIFIED Qualifiers: Anemia type: unspecified type Qualified Code(s): D64.9 - Anemia, unspecified Comment/Plan: Monitor counts transfuse as needed and indicated. (9) Renal insufficiency Acute N28.9 - DISORDER OF KIDNEY AND URETER, UNSPECIFIED Comment/Plan: Monitor renal function maintain hydration.. (10) Hyponatremia Acute E87.1 - HYPO-OSMOLALITY AND HYPONATREMIA Comment/Plan: Continue IV normal saline, monitor BMP.. (11) Sepsis Resolved A41.9 - SEPSIS, UNSPECIFIED ORGANISM Qualifiers: Sepsis type: sepsis due to unspecified organism Qualified Code(s): A41.9 - Sepsis, unspecified organism Comment/Plan: Continue IV fluids and IV antibiotics monitor cultures. Continue IV steroids as well.. Case Care Discussed with: Patient, Consultants, Family, Nursing Staff, [place] Education/Counseling Given To: Patient Education/Counseling Given Regarding: Diagnosis, Treatment, Prognosis, Follow Up Total Time: 60 min . Critical Care: Yes Code: 291
[2016-04-04 09:17] LABS: SEG NEUTROPHIL 69 % (45-76)
[2016-04-04] MEDS: ACETYLCYSTEINE 20% SOLN 4 ML NEB SCH ×2 (09:31→21:09)
--- NOTE | 2016-04-04 10:11 | PCM.PULM ---
Chief Complaint: Patient in Intensive care unit bed alert and responsive follows commands. Has been confused and disoriented yesterday afternoon and some overnight. Patient still requiring BIPAP 16/8 and Fio2 %40. PC02 69, Bicarb 7.36 improved since yesterday. He is more alert and responsive today. Current medication list reviewed:yes Notes reviewed: yes, Events from last night noted and discussed with Clinical Staff DVT/GI prophylaxis:yes - Physical Examination Vital Signs and I&O: Last Vital Signs Temp 97.9 F 04/04/16 10:00 Pulse 83 04/04/16 10:00 Resp 28 H 04/04/16 10:00 BP 159/72 04/04/16 10:00 Pulse Ox 88 L 04/04/16 10:00 Oxygen Pulse Oxygen Saturation 88 O2 Device BiPAP Oxygen Flow Rate 2 Fraction of Inspired Oxygen ( 35 FIO2) Intake & Output 04/01/16 04/02/16 04/03/16 04/04/16 23:59 23:59 23:59 23:59 Intake Total 6408 3563 3287 597 Output Total 2300 6550 2050 Balance 6408 1263 -6163 -1453 Patient's weight 106.866 kg 104.19 kg General: Alert, Oriented x3, Mild distress, Obese, Fatigue Respiratory: Accessory Muscle Use, Diminished, Rhonchi, Tachypnea, Wheezes Cardiovascular: Regular rate, Regular rate and rhythm, Normal S1, No Gallops, Rubs/Murmurs, Normal S2 GI: Normal bowel sounds, Soft, Non tender, No hepatospenomegaly, No masses, Obese Extremities/Musculoskeletal: Normal pulses Skin: Warm,Dry and Intact, No rashes, No breakdown, No significant lesion Neurological: Normal Steady Gait, Normal speech, Strength at 5/5 X4 ext, Cranial nerves 3-12 NL, Reflexes 2+ Psych/Mental Status: Appropriate, Cooperative, Confused Result Diagrams: 04/04/16 04:42 04/04/16 04:42 Labs (last 24 hours): Laboratory Results - last 24 hr 04/03/16 04/04/16 04/04/16 21:31 04:40 04:42 WBC RBC Hgb Hct MCV MCH MCHC RDW Plt Count MPV Neut % (Auto) Lymph % (Auto) Young % (Auto) Eos % (Auto) Baso % (Auto) Absolute Neuts (auto) Absolute Lymphs (auto) Seg Neuts % (Manual) Band Neutrophils % Lymphocytes % (Manual) Monocytes % (Manual) Myelocytes % Absolute Neutrophils Absolute Lymphocytes Vacuolated Neuts Toxic Granulation Platelet Estimate RBC Morphology Puncture Site Right radial pH 7.360 pCO2 69.0 H* pO2 67.0 L HCO3 39.0 H Total CO2 41.1 H Base Excess 10.6 H FiO2 % 40% Specimen Drawn By Bkl Sodium 141 Potassium 4.0 Chloride 97 L Carbon Dioxide 34 H Anion Gap 14 BUN 41 H Creatinine 1.20 Estimated GFR (MDRD) > 60 Glucose 183 H POC Capillary Glucose 166 H Calculated Osmolality 286 Calcium 7.8 L Magnesium 1.70 Mfl-F-Ahqmcerspcl Pept Ur Random Microalbumin 04/04/16 04/04/16 04/04/16 04:42 04:42 06:26 WBC 20.5 H RBC 3.82 L Hgb 12.1 L D Hct 37.3 L MCV 98 H MCH 31.7 MCHC 32.4 L RDW 13.6 Plt Count 311 MPV 7.3 L Neut % (Auto) Cancelled Lymph % (Auto) Cancelled Young % (Auto) Cancelled Eos % (Auto) Cancelled Baso % (Auto) Cancelled Absolute Neuts (auto) Cancelled Absolute Lymphs (auto) Cancelled Seg Neuts % (Manual) 69 Band Neutrophils % 23 H Lymphocytes % (Manual) 5 L Monocytes % (Manual) 2 Myelocytes % 1 H Absolute Neutrophils 18.86 H Absolute Lymphocytes 1.03 Vacuolated Neuts Few Toxic Granulation 2+ Platelet Estimate Norm RBC Morphology 1+ hypo Puncture Site pH pCO2 pO2 HCO3 Total CO2 Base Excess FiO2 % Specimen Drawn By Sodium Potassium Chloride Carbon Dioxide Anion Gap BUN Creatinine Estimated GFR (MDRD) Glucose POC Capillary Glucose 216 H Calculated Osmolality Calcium Magnesium [id number]-Asfvgmishtm Pept 1660 H Ur Random Microalbumin Lab/DI/Studies Reviewed: EKG: NSR, NO ST or ST wave changes noted Cxray: 1 view Chest x-ray was seen personally patient has bibasilar infiltrates without much change with hyperinflated lung cerna and cardiomegaly Medications: Acetylcysteine (Mucomyst) 4 ml NEB RTBID [facility] Stop: 04/16/16 16:59 Last Admin: 04/03/16 09:40 Dose: 4 ml Guaifenesin (Mucinex) 1,200 mg PO Q12 [facility] Stop: 04/16/16 16:59 Last Admin: 04/02/16 10:09 Dose: 1,200 mg Ibuprofen (Motrin) 400 mg PO Q6H PRN; Protocol PRN Reason: Mild Pain or Fever above 100.4 Stop: 04/15/16 16:59 Promethazine HCl (Phenergan) 12.5 mg IV Q6H PRN; Protocol PRN Reason: Nausea/Vomiting - Alternative Stop: 04/15/16 16:59 Pravastatin Sodium (Pravachol) 40 mg PO DAILY [facility] Stop: 04/16/16 08:59 Last Admin: 04/02/16 10:06 Dose: 40 mg Insulin Human Regular (Humulin R) 0 units SQ ACHS [facility] PRN Reason: Protocol Stop: 04/15/16 16:59 Last Admin: 04/02/16 06:21 Dose: 3 units Insulin Glargine (Lantus Pen) 10 units SQ HS [facility] Stop: 04/15/16 16:59 Last Admin: 04/01/16 20:37 Dose: Not Given Levothyroxine Sodium (Synthroid, Levoxyl) 50 mcg PO 0600 [facility] Stop: 04/16/16 05:59 Last Admin: 04/02/16 06:22 Dose: Not Given Lisinopril (Zestril) 2.5 mg PO DAILY [facility] Stop: 04/16/16 17:59 Metoprolol Succinate (Toprol Xl) 50 mg PO DAILY [facility] Stop: 04/16/16 08:59 Last Admin: 04/02/16 10:06 Dose: 50 mg Methylprednisolone Sodium Succinate (Solu-Medrol) 60 mg IV Q6 [facility] Stop: 04/15/16 17:59 Last Admin: 04/03/16 11:48 Dose: 60 mg Furosemide 100 mg/ Sodium (Chloride) 50 mls @ 5 mls/hr IV Q10H [facility]; 10 MG/HR PRN Reason: Protocol Stop: 04/17/16 10:59 Last Admin: 04/04/16 08:49 Dose: Not Given Acetaminophen (Tylenol Tablet) 650 mg PO Q6H PRN; Protocol PRN Reason: Mild Pain or Fever above 100.4 Stop: 04/15/16 16:59 Acetylcysteine (Mucomyst) 4 ml NEB RTBID [facility] Stop: 04/16/16 16:59 Al Hydrox/Mg Hydrox/Simethicone (Maalox Plus, Mylanta) 30 ml PO Q3H PRN PRN Reason: Heartburn or Indigestion Stop: 04/15/16 16:59 Albuterol (Proventil, Ventolin) 3 ml NEB Q2H PRN PRN Reason: Wheezing-1ST Stop: 04/15/16 16:59 Albuterol/Ipratropium (Duoneb) 3 ml NEB Q4H PRN PRN Reason: Dyspnea-2ND OPTION Stop: 04/15/16 13:26 Amiodarone HCl/Dextrose (Nextarone) 360 mg in 200 mls @ 16.666 mls/hr IV Q12H [facility]; 0.5 MG/MIN PRN Reason: Protocol Stop: 04/15/16 23:24 Last Admin: 04/01/16 23:23 Dose: 16.666 mls/hr Aspirin (Aspirin) 325 mg PO DAILY [facility] Stop: 04/16/16 08:59 Last Admin: 04/02/16 10:05 Dose: 325 mg Azithromycin 500 mg/ Dextrose 250 mls @ 250 mls/hr IV Q24H [facility] Stop: 04/06/16 15:59 Last Admin: 04/01/16 16:42 Dose: 250 mls/hr Benzonatate (Tessalon) 200 mg PO TID PRN PRN Reason: Cough - First Option Stop: 04/15/16 16:59 Ceftriaxone Sodium 1 gm/ (Dextrose) 100 mls @ 100 mls/hr IV Q24H [facility] Stop: 04/08/16 16:59 Last Admin: 04/01/16 14:13 Dose: 100 mls/hr Chlorphenir/Hydrocodone Polistirex (Tussionex) 5 ml PO BID PRN PRN Reason: Cough - Alternative Stop: 04/15/16 16:59 Enoxaparin Sodium (Lovenox) 100 mg SQ Q12H [facility] Stop: 04/09/16 16:59 Niacin (Niaspan) 1,000 mg PO DAILY [facility] Stop: 04/16/16 08:59 Last Admin: 04/02/16 10:06 Dose: 1,000 mg Ondansetron HCl (Zofran) 4 mg IV Q6H PRN PRN Reason: Nausea/Vomiting - First Option Stop: 04/15/16 16:59 Tamsulosin HCl (Flomax) 0.4 mg PO DAILY [facility] Stop: 04/16/16 08:59 Last Admin: 04/02/16 10:05 Dose: 0.4 mg Verapamil HCl (Calan, Isoptin) 2.5 mg IV Q5MIN PRN PRN Reason: HR Above 110 beats/min Stop: 04/04/16 19:01 Last Admin: 04/01/16 23:06 Dose: 2.5 mg Sodium Chloride (Normal Saline) 1,000 mls @ 55 mls/hr IV Q24H [facility] Stop: 04/15/16 16:59 Last Admin: 04/03/16 08:39 Dose: 55 mls/hr - Assessment/Plan (1) Acute respiratory failure with hypoxia Acute J96.01 - ACUTE RESPIRATORY FAILURE WITH HYPOXIA Comment/Plan: Patient has been in significant negative balance with Lasix drip and I think it is improving his pH significantly I would continue the current supportive care with nebulizers DVT and GI prophylaxis continue the current BiPAP setting as well along with oxygen patient remains critically ill he is in danger of dying all getting intubated. Would cut down the steroids to 40 mg IV q.6 hours because the nurse is concerned that patient is getting anxiety and confusion and delirium with high doses of steroids. with nebulizers requires BiPAP 20 x 8 with 35% oxygen ., repeat a blood gases and chest x-ray in the morning (2) Atrial fibrillation with RVR Acute I48.91 - UNSPECIFIED ATRIAL FIBRILLATION Comment/Plan: Patient remains on amiodarone digoxin and remains in sinus rhythm at this time (3) COPD exacerbation Acute J44.1 - CHRONIC OBSTRUCTIVE PULMONARY DISEASE W (ACUTE) EXACERBATION Comment/Plan: Continue Solu-Medrol and antibiotics along with BiPAP and oxygen (4) Community acquired bacterial pneumonia Acute J15.9 - UNSPECIFIED BACTERIAL PNEUMONIA Comment/Plan: Resolved I personally saw and evaluated the patient.: Yes Total Face to Face Time: 35 minutes Case Care Discussed with: Patient Education/Counseling Given To: Patient Education/Counseling Given Regarding: Diagnosis, Treatment, Prognosis, Follow Up , Disposition Plan
[2016-04-04] MEDS: CALCIUM CARBONATE 500 MG TAB PO SCH (11:55)
[2016-04-04] MEDS: VITAMINS, MULTIPLE CAP PO SCH (11:55)
[2016-04-04] MEDS: CEFTRIAXONE 1 GM in D5W 100 ML IV SCH (14:30)
[2016-04-04] MEDS: AZITHROMYCIN 500 MG in D5W 250 ML IV SCH (15:57)
[2016-04-04] MEDS: PRAVASTATIN 40 MG TABLET PO SCH (17:46)
[2016-04-04] MEDS: METHYLPREDNISOLONE 40 MG/1 ML VIAL IV SCH (19:36)
[2016-04-04] MEDS: CHLORHEXIDINE (HIBICLENS) 4 OZ BOTTLE TOP SCH (19:55)
[2016-04-04] MEDS: GLARGINE INSULIN (LANTUS) 100 UNITS/ML PEN SQ SCH (23:12)
[2016-04-05] MEDS: METHYLPREDNISOLONE 40 MG/1 ML VIAL IV SCH ×4 (00:57→17:35)
[2016-04-05] MEDS: Albuterol/Ipratropium Neb 3 ML NEB NEB SCH ×4 (02:26→20:25)
[2016-04-05 04:51] LABS: ALLEN'S TEST PASS; BEb 18.2 (+/- 2); TCO2 48.6 MMOL/L (23-27)
[2016-04-05 04:56] LABS: ABG Draw Site Right Radial; MODE BIPAP 20/8 RATE
[2016-04-05] MEDS: Furosemide 100 MG in NS 40 ML IV SCH ×3 (05:55→15:35)
[2016-04-05] MEDS: NITROGLYCERINE 2 % OINTMENT PACK TOP SCH ×4 (06:05→23:10)
[2016-04-05] MEDS: SODIUM CHLORIDE 0.9% 3 ML FLUSH FLUSH SCH ×2 (06:06→17:03)
[2016-04-05] MEDS: REGULAR INSULIN 100 UNITS/ML - 3 ML VIAL SQ SCH ×4 (06:10→20:42)
[2016-04-05] MEDS: NS 1,000 ML IV SCH (06:11)
[2016-04-05] MEDS: AMIODARONE 360 MG/200 ML RTU IV SCH (06:12)
[2016-04-05 06:26] VITALS: BMI 33.0
--- NOTE | 2016-04-05 07:40 | DIRPT ---
CLINICAL DATA: Respiratory failure. EXAM: PORTABLE CHEST 1 VIEW COMPARISON: April 04, 2016. FINDINGS: Stable cardiomediastinal silhouette. No pneumothorax or pleural effusion is noted. Mild bibasilar opacities are stable concerning for subsegmental atelectasis or possibly edema. Bony thorax is unremarkable. IMPRESSION: Stable bibasilar subsegmental atelectasis or scarring. No significant changes noted compared to prior exam. Electronically Signed By: Kavin Tena Jr, M.D. On: 04/05/2016 07:37
--- NOTE | 2016-04-05 07:40 | PCM.CARD ---
- Subjective Reason for visit: Atrial fibrillation on IV amiodarone Vital Signs: Last Vital Signs Temp 98.3 F 04/05/16 03:00 Pulse 65 04/05/16 06:05 Resp 20 04/05/16 06:05 BP 116/65 04/05/16 06:05 Pulse Ox 92 04/05/16 06:05 Lab/DI Results Reviewed: Laboratory Tests 04/01/16 04/04/16 04/04/16 11:17 04:42 04:42 WBC 20.5 H Hgb 12.1 L D Hct 37.3 L Seg Neuts % (Manual) 69 Band Neutrophils % 23 H Absolute Neutrophils 18.86 H pH pCO2 pO2 Vent Mode FiO2 % Potassium 4.0 TSH 0.31 L 04/05/16 04:44 WBC Hgb Hct Seg Neuts % (Manual) Band Neutrophils % Absolute Neutrophils pH 7.430 pCO2 70.0 H* pO2 67.0 L Vent Mode Bipap 20/8 FiO2 % 35 Potassium TSH - Assessment/Plan (1) Atrial fibrillation with RVR Acute I48.91 - UNSPECIFIED ATRIAL FIBRILLATION Present on Admission: Yes (2) Community acquired bacterial pneumonia Acute J15.9 - UNSPECIFIED BACTERIAL PNEUMONIA Present on Admission: Yes
[2016-04-05] MEDS: ACETYLCYSTEINE 20% SOLN 4 ML NEB SCH ×2 (08:33→20:27)
--- NOTE | 2016-04-05 08:35 | PCM.CARD ---
- Subjective Current Assessment: No New Symptoms, Shortness of Breath (Mild shortness of breath at rest on BiPAP). negative: Cough, Chest Pain, Nausea, Palpitations, Vomiting Vital Signs: Last Vital Signs Temp 98.3 F 04/05/16 07:00 Pulse 70 04/05/16 08:00 Resp 21 04/05/16 08:00 BP 150/65 04/05/16 08:00 Pulse Ox 95 04/05/16 08:00 Vital Signs Temp 98.3 F 04/05/16 07:00 Pulse 70 04/05/16 08:00 Resp 04/05/16 08:00 BP 150/65 04/05/16 08:00 Pulse Ox 95 04/05/16 08:00 Intake & Output 04/03/16 04/04/16 04/05/16 23:59 23:59 23:59 Intake Total 3287 2202 505 Output Total 6550 4125 950 Balance -6565 -6072 -146 Patient's weight 235 lb 9.6 oz 229 lb 11.2 oz 224 lb 1.6 oz Intake: IV Fluids 3287 2202 505 Lasix 100 MG In Normal 54 124 33 Saline 40 ml @ 10 MG/HR 5 mls/hr IV Q10H [facility] Rx#: [id number] Nextarone 360 mg In 200 482 403 109 ml @ 0.5 MG/MIN 16.666 mls/hr IV Q12H [facility] Rx#: [id number] Normal Saline 1,000 ml @ 1742 125 mls/hr IV Q24H [facility] Rx #:[id number] Normal Saline 1,000 ml @ 1009 1675 363 55 mls/hr IV Q24H [facility] Rx# :[id number] Output: Urine 6550 4125 950 Other: Elimination Method Indwelling Catheter Indwelling Catheter Indwelling Catheter Number of Unmeasured 1 Voids Urine Color Straw Yellow Yellow Urethral ([place]) Straw Straw Wt Change in KG 2.540 kg gained 2.676 kg loss 2.540 kg loss Weight Change from 5.6 lb(s) gained 5.9 lb(s) loss 5.6 lb(s) loss Previous Weight Weight (Calculated 106.866 104.190 101.650 Kilograms) Respiratory: Diminished. negative: Rales, Rhonchi, Wheezes Jugular Vein Distention: None Pulse Rhythm: Regular - Assessment/Plan (1) Atrial fibrillation with RVR Acute I48.91 - UNSPECIFIED ATRIAL FIBRILLATION Present on Admission: Yes Comment/Plan: He is in sinus rhythm I will transition to oral amiodarone today. Reviewed his 1st EKG that looks to me like one-to-one conduction of atrial tachycardia or atypical atrial flutter. Ideally once improved especially with his severe underlying lung disease I would refer for an EP consultation as long-term he is at increased risk of amiodarone lung toxicity. He relates to me as a history of CAD with old NH greater than 10 years ago with a stent in no cardiology follow-up since Dr. Ramos had seen him and he retired 5 date years ago. (2) Community acquired bacterial pneumonia Acute J15.9 - UNSPECIFIED BACTERIAL PNEUMONIA Present on Admission: Yes Comment/Plan: Stable being treated by the hospitalist
[2016-04-05] MEDS: GUAIFENESIN 600 MG LA TAB PO SCH ×2 (08:50→20:42)
[2016-04-05] MEDS: LISINOPRIL 2.5 MG TAB PO SCH (08:50)
[2016-04-05] MEDS: ASPIRIN 325 MG TAB PO SCH (08:51)
[2016-04-05] MEDS: METOPROLOL (TOPROL-XL) 50 MG TAB PO SCH (08:51)
[2016-04-05] MEDS: TAMSULOSIN HCL 0.4 MG CAP PO SCH (08:51)
[2016-04-05] MEDS: PRAVASTATIN 40 MG TABLET PO SCH (08:51)
--- NOTE | 2016-04-05 09:11 | PCM.PULM ---
Chief Complaint: Patient alert responsive follows commands sitting on chair today. On BIPAP with fio2%35. Breathing relatively stable today. Patient had an episode of hypoxia yesterday while on oxygen. Current medication list reviewed:yes Notes reviewed: yes, Events from last night noted and discussed with Clinical Staff DVT/GI prophylaxis:yes - Physical Examination Vital Signs and I&O: Last Vital Signs Temp 98.3 F 04/05/16 07:00 Pulse 63 04/05/16 09:00 Resp 21 04/05/16 08:00 BP 141/66 04/05/16 09:00 Pulse Ox 94 04/05/16 09:00 Oxygen Pulse Oxygen Saturation 94 O2 Device BiPAP Oxygen Flow Rate 4 Fraction of Inspired Oxygen ( 35 FIO2) Intake & Output 04/02/16 04/03/16 04/04/16 04/05/16 23:59 23:59 23:59 23:59 Intake Total 3563 3287 2202 505 Output Total 2300 6596 4125 950 Balance 1263 -3263 -1923 -445 Patient's weight 106.866 kg 104.19 kg 101.65 kg General: Alert, Oriented x3, Cooperative, No acute distress, Fatigue Respiratory: Diminished Cardiovascular: Regular rate, Regular rate and rhythm, Normal S1, No Gallops, Rubs/Murmurs, Normal S2 GI: Normal bowel sounds, Soft, Non tender, No hepatospenomegaly, Obese Extremities/Musculoskeletal: Normal pulses Skin: Warm,Dry and Intact, No rashes, No breakdown Neurological: Normal Steady Gait, Normal speech, Strength at 5/5 X4 ext, Normal tone, Cranial nerves 3-12 NL Psych/Mental Status: Normal Affect, Cooperative, Confused (at times) Result Diagrams: 04/04/16 04:42 04/04/16 04:42 Labs (last 24 hours): Laboratory Results - last 24 hr 04/05/16 04/05/16 04:44 05:46 WBC RBC Hgb Hct MCV MCH MCHC RDW Plt Count MPV Neut % (Auto) Lymph % (Auto) [place] % (Auto) Eos % (Auto) Baso % (Auto) Absolute Neuts (auto) Absolute Lymphs (auto) Seg Neuts % (Manual) Band Neutrophils % Lymphocytes % (Manual) Monocytes % (Manual) Myelocytes % Absolute Neutrophils Absolute Lymphocytes Vacuolated Neuts Toxic Granulation Platelet Estimate RBC Morphology Puncture Site Right radial pH 7.430 pCO2 70.0 H* pO2 67.0 L HCO3 46.5 H Total CO2 48.6 H Base Excess 18.2 H Vent Mode Bipap 20/8 FiO2 % 35 Specimen Drawn By Rakma POC Capillary Glucose 185 H [id number] Pept Ur Random Microalbumin Lab/DI/Studies Reviewed: EKG: NSR, NO ST or ST wave changes noted Cxray: 1 view Chest x-ray was seen personally patient seems to have persistent bibasilar atelectasis versus infiltrates without much change Medications: Acetylcysteine (Mucomyst) 4 ml NEB RTBID [facility] Stop: 04/16/16 16:59 Last Admin: 04/03/16 09:40 Dose: 4 ml Guaifenesin (Mucinex) 1,200 mg PO Q12 [facility] Stop: 04/16/16 16:59 Last Admin: 04/02/16 10:09 Dose: 1,200 mg Ibuprofen (Motrin) 400 mg PO Q6H PRN; Protocol PRN Reason: Mild Pain or Fever above 100.4 Stop: 04/15/16 16:59 Promethazine HCl (Phenergan) 12.5 mg IV Q6H PRN; Protocol PRN Reason: Nausea/Vomiting - Alternative Stop: 04/15/16 16:59 Pravastatin Sodium (Pravachol) 40 mg PO DAILY [facility] Stop: 04/16/16 08:59 Last Admin: 04/02/16 10:06 Dose: 40 mg Insulin Human Regular (Humulin R) 0 units SQ ACHS [facility] PRN Reason: Protocol Stop: 04/15/16 16:59 Last Admin: 04/02/16 06:21 Dose: 3 units Insulin Glargine (Lantus Pen) 10 units SQ HS [facility] Stop: 04/15/16 16:59 Last Admin: 04/01/16 20:37 Dose: Not Given Levothyroxine Sodium (Synthroid, Levoxyl) 50 mcg PO 0600 [facility] Stop: 04/16/16 05:59 Last Admin: 04/02/16 06:22 Dose: Not Given Lisinopril (Zestril) 2.5 mg PO DAILY [facility] Stop: 04/16/16 17:59 Furosemide 100 mg/ Sodium (Chloride) 50 mls @ 5 mls/hr IV Q10H [facility]; 10 MG/HR PRN Reason: Protocol Stop: 04/17/16 10:59 Last Admin: 04/04/16 08:49 Dose: Not Given Acetaminophen (Tylenol Tablet) 650 mg PO Q6H PRN; Protocol PRN Reason: Mild Pain or Fever above 100.4 Stop: 04/15/16 16:59 Al Hydrox/Mg Hydrox/Simethicone (Maalox Plus, Mylanta) 30 ml PO Q3H PRN PRN Reason: Heartburn or Indigestion Stop: 04/15/16 16:59 Albuterol (Proventil, Ventolin) 3 ml NEB Q2H PRN PRN Reason: Wheezing-1ST Stop: 04/15/16 16:59 Albuterol/Ipratropium (Duoneb) 3 ml NEB Q4H PRN PRN Reason: Dyspnea-2ND OPTION Stop: 04/15/16 13:26 Aspirin (Aspirin) 325 mg PO DAILY [facility] Stop: 04/16/16 08:59 Last Admin: 04/02/16 10:05 Dose: 325 mg Azithromycin 500 mg/ Dextrose 250 mls @ 250 mls/hr IV Q24H [facility] Stop: 04/06/16 15:59 Last Admin: 04/01/16 16:42 Dose: 250 mls/hr Benzonatate (Tessalon) 200 mg PO TID PRN PRN Reason: Cough - First Option Stop: 04/15/16 16:59 Ceftriaxone Sodium 1 gm/ (Dextrose) 100 mls @ 100 mls/hr IV Q24H [facility] Stop: 04/08/16 16:59 Last Admin: 04/01/16 14:13 Dose: 100 mls/hr Chlorphenir/Hydrocodone Polistirex (Tussionex) 5 ml PO BID PRN PRN Reason: Cough - Alternative Stop: 04/15/16 16:59 Enoxaparin Sodium (Lovenox) 100 mg SQ Q12H [facility] Stop: 04/09/16 16:59 Niacin (Niaspan) 1,000 mg PO DAILY [facility] Stop: 04/16/16 08:59 Last Admin: 04/02/16 10:06 Dose: 1,000 mg Ondansetron HCl (Zofran) 4 mg IV Q6H PRN PRN Reason: Nausea/Vomiting - First Option Stop: 04/15/16 16:59 Tamsulosin HCl (Flomax) 0.4 mg PO DAILY [facility] Stop: 04/16/16 08:59 Last Admin: 04/02/16 10:05 Dose: 0.4 mg Sodium Chloride (Normal Saline) 1,000 mls @ 55 mls/hr IV Q24H [facility] Stop: 04/15/16 16:59 Last Admin: 04/03/16 08:39 Dose: 55 mls/hr Metoprolol Succinate (Toprol Xl) 50 mg PO DAILY [facility] Stop: 04/16/16 08:59 Last Admin: 04/05/16 08:51 Dose: 50 mg Methylprednisolone Sodium Succinate (Solu-Medrol) 40 mg IV Q6H [facility] Stop: 04/18/16 17:59 Last Admin: 04/05/16 06:06 Dose: 40 mg - Assessment/Plan (1) Acute respiratory failure with hypoxia Acute J96.01 - ACUTE RESPIRATORY FAILURE WITH HYPOXIA Comment/Plan: I think patient is improving significantly he is now on nasal cannula oxygen and is in negative balance because of the Lasix drip I would continue the current supportive care on this patient with nebulizers DVT and GI prophylaxis oxygen BiPAP as needed specially while he is sleeping at night. Would cut the steroids down to 20 mg IV Q 8 hours. Would repeat chest x-ray and a blood gas in the morning continue other supportive care and would start the patient on soft diet with progression to 2 g sodium diet (2) Atrial fibrillation with RVR Acute I48.91 - UNSPECIFIED ATRIAL FIBRILLATION Comment/Plan: Patient remains on amiodarone digoxin and remains in sinus rhythm at this time (3) COPD exacerbation Acute J44.1 - CHRONIC OBSTRUCTIVE PULMONARY DISEASE W (ACUTE) EXACERBATION Comment/Plan: Would cut down Solu-Medrol and continue antibiotics along with BiPAP and oxygen (4) Community acquired bacterial pneumonia Acute J15.9 - UNSPECIFIED BACTERIAL PNEUMONIA Comment/Plan: Continue the current antibiotics I personally saw and evaluated the patient.: Yes Total Face to Face Time: 35 minutes Case Care Discussed with: Patient, Nursing Staff Education/Counseling Given To: Patient Education/Counseling Given Regarding: Diagnosis, Treatment, Prognosis, Follow Up , Disposition Plan
[2016-04-05] MEDS: ENOXAPARIN 100 MG PFS SQ SCH ×2 (12:13→23:10)
[2016-04-05] MEDS: CALCIUM CARBONATE 500 MG TAB PO SCH (12:14)
[2016-04-05] MEDS: VITAMINS, MULTIPLE CAP PO SCH (12:15)
[2016-04-05] MEDS ORDERED: AMIODARONE 200 MG TAB PO SCH (14:00)
[2016-04-05] MEDS: AMIODARONE 200 MG TAB PO SCH ×2 (14:10→20:41)
[2016-04-05] MEDS: CEFTRIAXONE 1 GM in D5W 100 ML IV SCH (14:19)
[2016-04-05] MEDS: AZITHROMYCIN 500 MG in D5W 250 ML IV SCH (15:31)
--- NOTE | 2016-04-05 17:22 | GENMEDPROG ---
Subjective Note: Patient in chair responsive follows commands. Remained on and tolerated BiPAP all night last night. Breathing slowly improving. Still coughing producing fair amount thick sputum but no hemoptysis. Notes Reviewed: Yes Events from last night noted and discussed with Clinical Staff Current Medication List: Reviewed Currently: Reports: Cough, Wheezing, MORENO, SOB, Sputum, Tobacco Use/Hx, Reflux Sx DVT Prophylaxis: Yes - Physical Examination Vital Signs and I&O: Last Vital Signs Temp 97.9 F 04/05/16 15:00 Pulse 80 04/05/16 16:00 Resp 21 04/05/16 08:00 BP 139/64 04/05/16 15:00 Pulse Ox 94 04/05/16 15:00 Oxygen Pulse Oxygen Saturation 94 O2 Device Nasal Cannula Oxygen Flow Rate 5 Fraction of Inspired Oxygen ( 5 FIO2) Intake & Output 04/02/16 04/03/16 04/04/16 04/05/16 23:59 23:59 23:59 23:59 Intake Total 3563 3287 2202 2107 Output Total 2300 9585 6783 1926 Balance 4703 -7793 -5416 182 Patient's weight 106.866 kg 104.19 kg 101.65 kg General: Moderate distress HEENT: Normal, PERRLA, EOMI, Anicteric Sclera Neck: Normal inspection, Limited range of motion, JVD Lymphatics: Normal Respiratory: Accessory Muscle Use, Diminished, Rhonchi. negative: Rales, Wheezes Cardiovascular: Normal S1, No Gallops,Rubs/Murmurs, Normal S2, Irregular GI: Normal bowel sounds, Soft, Non tender, No hepatospenomegaly, No masses, Obese Extremities/Musculoskeletal: Edema, DJD Skin: Warm,Dry and Intact, No rashes Neurological: Normal speech, Cranial nerves 3-12 NL Psych/Mental Status: Anxious 04/04/16 04:42 04/04/16 04:42 Abnormal Lab Results 04/04/16 04/05/16 04/05/16 21:05 04:44 05:46 pCO2 70.0 H* pO2 67.0 L HCO3 46.5 H Total CO2 48.6 H Base Excess 18.2 H POC Capillary Glucose 152 H 185 H 04/05/16 12:05 pCO2 pO2 HCO3 Total CO2 Base Excess POC Capillary Glucose 182 H Last Vital Signs Temp 97.9 F 04/05/16 15:00 Pulse 80 04/05/16 16:00 Resp 21 04/05/16 08:00 BP 139/64 04/05/16 15:00 Pulse Ox 94 04/05/16 15:00 - Assessment (1) Acute respiratory failure with hypoxia Acute J96.01 - ACUTE RESPIRATORY FAILURE WITH HYPOXIA Comment/Plan: Continue O2 and BiPAP. Continue aggressive pulmonary toileting. (2) Atrial fibrillation with RVR Acute I48.91 - UNSPECIFIED ATRIAL FIBRILLATION Comment/Plan: Follow by Cardiology, keep K more than 4 magnesium more than 2. Rate controlled (3) COPD exacerbation Acute J44.1 - CHRONIC OBSTRUCTIVE PULMONARY DISEASE W (ACUTE) EXACERBATION Comment/Plan: Continue IV steroids and nebulized bronchodilators. Continue mucolytics and aggressive pulmonary toileting. (4) Gastroesophageal reflux disease Chronic K21.9 - GASTRO-ESOPHAGEAL REFLUX DISEASE WITHOUT ESOPHAGITIS Comment /Plan: Continue PPI (5) Hypothyroidism Chronic E03.9 - HYPOTHYROIDISM, UNSPECIFIED Comment/Plan: Adjust Synthroid dose (6) Obstructive sleep apnea Chronic G47.33 - OBSTRUCTIVE SLEEP APNEA (ADULT) (PEDIATRIC) Comment/Plan: Continue BiPAP HS (7) Anemia Acute D64.9 - ANEMIA, UNSPECIFIED Qualifiers: Qualified Code(s): D64.9 - Anemia, unspecified Comment/Plan: Monitor counts transfuse as needed and indicated. (8) Renal insufficiency Acute N28.9 - DISORDER OF KIDNEY AND URETER, UNSPECIFIED Comment/Plan: Monitor renal function maintain hydration.. (9) Hyponatremia Acute E87.1 - HYPO-OSMOLALITY AND HYPONATREMIA Comment/Plan: Continue IV normal saline, monitor BMP.. (10) Sepsis Resolved A41.9 - SEPSIS, UNSPECIFIED ORGANISM Qualifiers: Qualified Code(s): A41.9 - Sepsis, unspecified organism Comment/Plan: Continue IV fluids and IV antibiotics monitor cultures. Continue IV steroids as well.. Case Care Discussed with: Patient, Consultants, Family, Nursing Staff, Respiratory Therapy, Gang Investigator Education/Counseling Given To: Patient Education/Counseling Given Regarding: Diagnosis, Treatment, Prognosis, Follow Up Total Time: 55 min . Critical Care: Yes Code: 291
[2016-04-05] MEDS: GLARGINE INSULIN (LANTUS) 100 UNITS/ML PEN SQ SCH (20:49)
[2016-04-06] MEDS: Furosemide 100 MG in NS 40 ML IV SCH ×4 (01:14→19:43)
[2016-04-06] MEDS: CHLORHEXIDINE (HIBICLENS) 4 OZ BOTTLE TOP SCH ×2 (01:14→19:45)
[2016-04-06] MEDS: NS 1,000 ML IV SCH ×2 (01:19→22:35)
[2016-04-06] MEDS: METHYLPREDNISOLONE 40 MG/1 ML VIAL IV SCH ×2 (01:20→08:48)
[2016-04-06] MEDS: Albuterol/Ipratropium Neb 3 ML NEB NEB SCH ×4 (02:55→21:14)
[2016-04-06 05:09] LABS: ABG Draw Site Right Radial; ALLEN'S TEST PASS
[2016-04-06 05:10] LABS: BEb 22.9 (+/- 2); BI-PAP 20/8 cm H2O; TCO2 51.7 MMOL/L (23-27)
[2016-04-06] MEDS: SODIUM CHLORIDE 0.9% 3 ML FLUSH FLUSH SCH ×2 (05:18→17:37)
[2016-04-06] MEDS: NITROGLYCERINE 2 % OINTMENT PACK TOP SCH ×4 (05:22→22:37)
[2016-04-06] MEDS: REGULAR INSULIN 100 UNITS/ML - 3 ML VIAL SQ SCH ×4 (05:23→19:47)
[2016-04-06 06:24] LABS: MPV 7.2 fL (7.4-10.4)
[2016-04-06 06:39] LABS: BLOOD UREA NITROGEN 47 MG/DL (9-20); CALCULATED OSMOLALITY 288 MOs/Kg (270-290); CHLORIDE 89 mEq/L (98-107); GLUCOSE 159 MG/DL (70-99); SODIUM LEVEL 142 mEq/L (137-146)
[2016-04-06 07:16] LABS: CALCIUM 7.7 MG/DL (8.4-10.2)
--- NOTE | 2016-04-06 07:45 | PCM.CARD ---
- Subjective Reason for visit: For paroxysmally atrial fibrillation, he has been transition from intravenous to oral amiodarone Current Assessment: No New Symptoms, Shortness of Breath (Markedly improved out of bed in a chair on nasal oxygen sats 88-90%). negative: Chest Pain, Nausea, Orthopnea, Palpitations, Vomiting Vital Signs: Last Vital Signs Temp 98.5 F 04/06/16 06:00 Pulse 59 L 04/06/16 06:00 Resp 14 04/06/16 06:00 BP 178/77 04/06/16 06:00 Pulse Ox 92 04/06/16 06:00 Respiratory: Diminished. negative: Rales, Rhonchi, Wheezes Jugular Vein Distention: None Pulse Rhythm: Regular EKG Rhythm: Sinus Rhythm EKG Ectopy: negative: Runs >10 beats Heart Sounds: Distant. negative: S3, Murmur (No edema) Lab/DI Results Reviewed: Laboratory Tests 04/06/16 04/06/16 04/06/16 05:00 05:35 05:35 WBC 18.3 H Hgb 13.3 L pH 7.520 H pCO2 61.0 H pO2 66.0 L FiO2 % .35 Mode BiPAP 20/8 Sodium 142 Potassium 3.3 L Estimated GFR (MDRD) > 60 - Assessment/Plan (1) Atrial fibrillation with RVR Acute I48.91 - UNSPECIFIED ATRIAL FIBRILLATION Present on Admission: Yes Comment/Plan: Stable in sinus rhythm continue current treatment including amiodarone and once recovered would benefit from EP evaluation for consideration of catheter ablation. (2) Community acquired bacterial pneumonia Acute J15.9 - UNSPECIFIED BACTERIAL PNEUMONIA Present on Admission: Yes Comment/Plan: Improving steadily managed by our hospitalist
--- NOTE | 2016-04-06 07:46 | PCM.PULM ---
Chief Complaint: Uneventful overnight with no acute distress Patient sitting on chair comfortably alert and responsive follows commands. Breathing is improving. Patient is on BIPAP at night and PRN. Current complaints: SOB,MORENO,cough,sputum. Current medication list reviewed:yes Notes reviewed:yes, Events from last night noted and discussed with Clinical Staff DVT prophylaxis:yes - Physical Examination Vital Signs and I&O: Last Vital Signs Temp 98.5 F 04/06/16 06:00 Pulse 59 L 04/06/16 06:00 Resp 14 04/06/16 06:00 BP 178/77 04/06/16 06:00 Pulse Ox 92 04/06/16 06:00 Oxygen Pulse Oxygen Saturation 92 O2 Device BiPAP Oxygen Flow Rate 4 Fraction of Inspired Oxygen ( 35 FIO2) Intake & Output 04/03/16 04/04/16 04/05/16 04/06/16 23:59 23:59 23:59 23:59 Intake Total 3287 2202 3241 421 Output Total 6550 4125 3600 1150 Balance -3263 -1923 -359 -729 Patient's weight 106.866 kg 104.19 kg 101.65 kg General: Alert, Oriented x3, No acute distress, Fatigue Respiratory: Diminished (bilaterally) Cardiovascular: Regular rate, Regular rate and rhythm, Normal S1, No Gallops, Rubs/Murmurs, Normal S2 GI: Normal bowel sounds, Soft, Non tender, No hepatospenomegaly, No masses Extremities/Musculoskeletal: Normal pulses Skin: Warm,Dry and Intact, No rashes, No breakdown, No significant lesion Neurological: Normal Steady Gait, Normal speech, Strength at 5/5 X4 ext, Normal tone, Cranial nerves 3-12 NL, Reflexes 2+ Psych/Mental Status: Appropriate, Cooperative Result Diagrams: 04/06/16 05:35 04/06/16 05:35 Labs (last 24 hours): Laboratory Results - last 24 hr 04/05/16 04/05/16 04/06/16 12:05 20:29 05:00 WBC RBC Hgb Hct MCV MCH MCHC RDW Plt Count MPV Puncture Site Right radial pH 7.520 H pCO2 61.0 H pO2 66.0 L HCO3 49.8 H Total CO2 51.7 H Base Excess 22.9 H FiO2 % .35 Mode BiPAP 20/8 Specimen Drawn By [employer] Sodium Potassium Chloride Carbon Dioxide Anion Gap BUN Creatinine Estimated GFR (MDRD) Glucose POC Capillary Glucose 182 H 198 H Calculated Osmolality Calcium 04/06/16 04/06/16 04/06/16 05:18 05:35 05:35 WBC 18.3 H RBC 4.28 L Hgb 13.3 L Hct 41.5 L MCV 97 H MCH 31.1 MCHC 32.2 L RDW 13.3 Plt Count 294 MPV 7.2 L Puncture Site pH pCO2 pO2 HCO3 Total CO2 Base Excess FiO2 % Mode BiPAP Specimen Drawn By Sodium 142 Potassium 3.3 L Chloride 89 L Carbon Dioxide 43 H Anion Gap 13 BUN 47 H Creatinine 1.20 Estimated GFR (MDRD) > 60 Glucose 159 H POC Capillary Glucose 233 H Calculated Osmolality 288 Calcium 7.7 L Lab/DI/Studies Reviewed: EKG: NSR, NO ST or ST wave changes noted Cxray: 1 view Chest x-ray was seen personally patient seems to have left lower lobe possible infiltrate and right lower lobe atelectasis Medications: Acetylcysteine (Mucomyst) 4 ml NEB RTBID [facility] Stop: 04/16/16 16:59 Last Admin: 04/03/16 09:40 Dose: 4 ml Metoprolol Succinate (Toprol Xl) 50 mg PO DAILY [facility] Stop: 04/16/16 08:59 Last Admin: 04/05/16 08:51 Dose: 50 mg Guaifenesin (Mucinex) 1,200 mg PO Q12 [facility] Stop: 04/16/16 16:59 Last Admin: 04/02/16 10:09 Dose: 1,200 mg Ibuprofen (Motrin) 400 mg PO Q6H PRN; Protocol PRN Reason: Mild Pain or Fever above 100.4 Stop: 04/15/16 16:59 Promethazine HCl (Phenergan) 12.5 mg IV Q6H PRN; Protocol PRN Reason: Nausea/Vomiting - Alternative Stop: 04/15/16 16:59 Pravastatin Sodium (Pravachol) 40 mg PO DAILY [facility] Stop: 04/16/16 08:59 Last Admin: 04/02/16 10:06 Dose: 40 mg Insulin Human Regular (Humulin R) 0 units SQ ACHS [facility] PRN Reason: Protocol Stop: 04/15/16 16:59 Last Admin: 04/02/16 06:21 Dose: 3 units Insulin Glargine (Lantus Pen) 10 units SQ HS [facility] Stop: 04/15/16 16:59 Last Admin: 04/01/16 20:37 Dose: Not Given Levothyroxine Sodium (Synthroid, Levoxyl) 50 mcg PO 0600 [facility] Stop: 04/16/16 05:59 Last Admin: 04/02/16 06:22 Dose: Not Given Lisinopril (Zestril) 2.5 mg PO DAILY [facility] Stop: 04/16/16 17:59 Furosemide 100 mg/ Sodium (Chloride) 50 mls @ 5 mls/hr IV Q10H [facility]; 10 MG/HR PRN Reason: Protocol Stop: 04/17/16 10:59 Last Admin: 04/04/16 08:49 Dose: Not Given Acetaminophen (Tylenol Tablet) 650 mg PO Q6H PRN; Protocol PRN Reason: Mild Pain or Fever above 100.4 Stop: 04/15/16 16:59 Al Hydrox/Mg Hydrox/Simethicone (Maalox Plus, Mylanta) 30 ml PO Q3H PRN PRN Reason: Heartburn or Indigestion Stop: 04/15/16 16:59 Albuterol (Proventil, Ventolin) 3 ml NEB Q2H PRN PRN Reason: Wheezing-1ST Stop: 04/15/16 16:59 Albuterol/Ipratropium (Duoneb) 3 ml NEB Q4H PRN PRN Reason: Dyspnea-2ND OPTION Stop: 04/15/16 13:26 Aspirin (Aspirin) 325 mg PO DAILY [facility] Stop: 04/16/16 08:59 Last Admin: 04/02/16 10:05 Dose: 325 mg Azithromycin 500 mg/ Dextrose 250 mls @ 250 mls/hr IV Q24H [facility] Stop: 04/06/16 15:59 Last Admin: 04/01/16 16:42 Dose: 250 mls/hr Benzonatate (Tessalon) 200 mg PO TID PRN PRN Reason: Cough - First Option Stop: 04/15/16 16:59 Ceftriaxone Sodium 1 gm/ (Dextrose) 100 mls @ 100 mls/hr IV Q24H [facility] Stop: 04/08/16 16:59 Last Admin: 04/01/16 14:13 Dose: 100 mls/hr Chlorphenir/Hydrocodone Polistirex (Tussionex) 5 ml PO BID PRN PRN Reason: Cough - Alternative Stop: 04/15/16 16:59 Enoxaparin Sodium (Lovenox) 100 mg SQ Q12H [facility] Stop: 04/09/16 16:59 Niacin (Niaspan) 1,000 mg PO DAILY [facility] Stop: 04/16/16 08:59 Last Admin: 04/02/16 10:06 Dose: 1,000 mg Ondansetron HCl (Zofran) 4 mg IV Q6H PRN PRN Reason: Nausea/Vomiting - [facility] Stop: 04/15/16 16:59 Tamsulosin HCl (Flomax) 0.4 mg PO DAILY [facility] Stop: 04/16/16 08:59 Last Admin: 04/02/16 10:05 Dose: 0.4 mg Sodium Chloride (Normal Saline) 1,000 mls @ 55 mls/hr IV Q24H [facility] Stop: 04/15/16 16:59 Last Admin: 04/03/16 08:39 Dose: 55 mls/hr Pravastatin Sodium (Pravachol) 40 mg PO DAILY [facility] Stop: 04/16/16 08:59 Last Admin: 04/05/16 08:51 Dose: 40 mg Metoprolol Succinate (Toprol Xl) 50 mg PO DAILY [facility] Stop: 04/16/16 08:59 Last Admin: 04/05/16 08:51 Dose: 50 mg Methylprednisolone Sodium Succinate (Solu-Medrol) 20 mg IV Q8H [facility] Stop: 04/20/16 01:59 Last Admin: 04/06/16 08:48 Dose: 20 mg Potassium Chloride (Klor-Con M20) 40 meq PO DAILY@1200 [facility] Stop: 04/20/16 16:59 Amiodarone HCl (Cordarone, Pacerone) 400 mg PO BID [facility] Stop: 04/19/16 16:59 Last Admin: 04/06/16 08:41 Dose: 400 mg - Assessment/Plan (1) Acute respiratory failure with hypoxia Acute J96.01 - ACUTE RESPIRATORY FAILURE WITH HYPOXIA Comment/Plan: Patient has been improving slowly can't on nasal cannula oxygen at this time at 2.5 liters/minute continue the current negative balance with Lasix drip and would stop the drip hopefully in the morning and patient may be able to go to regular floor after that I think he would eat significant diuresis I would continue the BiPAP while the patient is leaving for respiratory failure and obstructive sleep apnea prognosis is guarded would follow the patient closely discontinue the Solu-Medrol and start the patient on prednisone 40 mg daily repeat a blood gas in the morning (2) Atrial fibrillation with RVR Acute I48.91 - UNSPECIFIED ATRIAL FIBRILLATION Comment/Plan: Patient remains on amiodarone digoxin and remains in sinus rhythm at this time (3) COPD exacerbation Acute J44.1 - CHRONIC OBSTRUCTIVE PULMONARY DISEASE W (ACUTE) EXACERBATION Comment/Plan: Would cut down Solu-Medrol and continue antibiotics along with BiPAP and oxygen (4) Community acquired bacterial pneumonia Acute J15.9 - UNSPECIFIED BACTERIAL PNEUMONIA Comment/Plan: Continue the current antibiotics I personally saw and evaluated the patient.: Yes Case Care Discussed with: Patient, Nursing Staff, Respiratory Therapy Education/Counseling Given To: Patient Education/Counseling Given Regarding: Diagnosis, Treatment, Prognosis, Follow Up , Disposition Plan
--- NOTE | 2016-04-06 07:58 | GENMEDPROG ---
Chief Complaint: CHF, AFib, pneumonia Subjective Note: Overall he is feeling more comfortable, says that his peripheral edema is improving. He has been breathing a little bit better, wore BiPAP last night. Notes Reviewed: Yes Events from last night noted and discussed with Clinical Staff Current Medication List: Reviewed Currently: Reports: Cough, Wheezing, MORENO, SOB, Sputum, Tobacco Use/Hx, Reflux Sx DVT Prophylaxis: Yes - Physical Examination Vital Signs and I&O: Last Vital Signs Temp 98.5 F 04/06/16 06:00 Pulse 59 L 04/06/16 06:00 Resp 14 04/06/16 06:00 BP 178/77 04/06/16 06:00 Pulse Ox 92 04/06/16 06:00 Oxygen Pulse Oxygen Saturation 92 O2 Device BiPAP Oxygen Flow Rate 4 Fraction of Inspired Oxygen ( 35 FIO2) Intake & Output 04/04/16 04/05/16 04/06/16 04/07/16 06:59 06:59 06:59 06:59 Intake Total 4116 2914 3156 Output Total 9526 4675 6941 Balance -2391 -1465 -083 Patient's weight 104.19 kg 101.65 kg General: Moderate distress HEENT: Normal, PERRLA, EOMI, Anicteric Sclera Neck: Normal inspection, Limited range of motion, JVD Lymphatics: Normal Respiratory: Accessory Muscle Use, Diminished, Other (Not much air movement at all.). negative: Rales, Wheezes Cardiovascular: Normal S1, No Gallops,Rubs/Murmurs, Normal S2, Irregular GI: Normal bowel sounds, Soft, Non tender, No hepatospenomegaly, No masses, Obese Extremities/Musculoskeletal: Edema (2+ bilateral lower extremity pitting), DJD Skin: Warm,Dry and Intact, No rashes Neurological: Normal speech, Cranial nerves 3-12 NL Lab/DI/Studies Reviewed: Laboratory Tests 04/06/16 04/06/16 04/06/16 05:00 05:35 05:35 WBC 18.3 H Hgb 13.3 L pH 7.520 H pCO2 61.0 H pO2 66.0 L Potassium 3.3 L BUN 47 H Creatinine 1.20 - Plan (1) Acute respiratory failure with hypoxia Acute J96.01 - ACUTE RESPIRATORY FAILURE WITH HYPOXIA Comment/Plan: Continue O2 and BiPAP. Continue aggressive pulmonary toileting. (2) Atrial fibrillation with RVR Acute I48.91 - UNSPECIFIED ATRIAL FIBRILLATION Comment/Plan: Follow by Cardiology, keep K more than 4 magnesium more than 2. Rate controlled. Replete K orally today. (3) COPD exacerbation Acute J44.1 - CHRONIC OBSTRUCTIVE PULMONARY DISEASE W (ACUTE) EXACERBATION Comment/Plan: Continue IV steroids and nebulized bronchodilators. Continue mucolytics and aggressive pulmonary toileting. (4) Gastroesophageal reflux disease Chronic K21.9 - GASTRO-ESOPHAGEAL REFLUX DISEASE WITHOUT ESOPHAGITIS Comment /Plan: Continue PPI (5) Hypothyroidism Chronic E03.9 - HYPOTHYROIDISM, UNSPECIFIED Comment/Plan: Adjust Synthroid dose (6) Obstructive sleep apnea Chronic G47.33 - OBSTRUCTIVE SLEEP APNEA (ADULT) (PEDIATRIC) Comment/Plan: Continue BiPAP HS (7) Anemia Acute D64.9 - ANEMIA, UNSPECIFIED Qualifiers: Qualified Code(s): D64.9 - Anemia, unspecified Comment/Plan: Monitor counts transfuse as needed and indicated. (8) Renal insufficiency Acute N28.9 - DISORDER OF KIDNEY AND URETER, UNSPECIFIED Comment/Plan: Monitor renal function maintain hydration.. (9) Hyponatremia Acute E87.1 - HYPO-OSMOLALITY AND HYPONATREMIA Comment/Plan: Continue IV normal saline, monitor BMP.. (10) Sepsis Resolved A41.9 - SEPSIS, UNSPECIFIED ORGANISM Qualifiers: Qualified Code(s): A41.9 - Sepsis, unspecified organism Comment/Plan: Continue IV fluids and IV antibiotics monitor cultures. Continue IV steroids as well, tapered down by Pulmonary. In summary this patient is acutely and critically ill. The patient requires treatment of vital organ failure and measures to prevent further life- threatening deterioration of the above conditions. I personally reviewed and ordered lab testing, as well as imaging. I reviewed old medical records from previous hospitalizations as available, and spent the time mentioned below in critical care of this patient including counseling and coordination of care. Total Time: 48 Critical Care: Yes
[2016-04-06 08:01] LABS: SEG NEUTROPHIL 78 % (45-76)
--- NOTE | 2016-04-06 08:12 | DIRPT ---
CLINICAL DATA: Respiratory failure EXAM: PORTABLE CHEST 1 VIEW COMPARISON: Portable exam 0557 hours compared to 04/05/2016 FINDINGS: Minimal enlargement of cardiac silhouette. Mild atherosclerotic calcification aorta. Slight pulmonary vascular congestion. Increased LEFT lower lobe consolidation. Minimal atelectasis at RIGHT base. Question underlying emphysematous changes. No gross pleural effusion or pneumothorax. IMPRESSION: Minimal enlargement of cardiac silhouette. LEFT lower lobe consolidation question pneumonia though aspiration could cause a similar appearance. Suspect underlying emphysematous changes with mild RIGHT basilar atelectasis. Electronically Signed By: Luis Gupta M.D. On: 04/06/2016 08:09
[2016-04-06] MEDS: AMIODARONE 200 MG TAB PO SCH ×2 (08:41→19:46)
[2016-04-06] MEDS: ASPIRIN 325 MG TAB PO SCH (08:42)
[2016-04-06] MEDS: TAMSULOSIN HCL 0.4 MG CAP PO SCH (08:43)
[2016-04-06] MEDS: PRAVASTATIN 40 MG TABLET PO SCH (08:43)
[2016-04-06] MEDS: METOPROLOL (TOPROL-XL) 50 MG TAB PO SCH (08:43)
[2016-04-06] MEDS: LISINOPRIL 2.5 MG TAB PO SCH (08:43)
[2016-04-06] MEDS: GUAIFENESIN 600 MG LA TAB PO SCH ×2 (08:44→19:49)
[2016-04-06] MEDS: ACETYLCYSTEINE 20% SOLN 4 ML NEB SCH ×2 (09:36→21:17)
[2016-04-06] MEDS: CEFTRIAXONE 1 GM in D5W 100 ML IV SCH (12:00)
[2016-04-06] MEDS ORDERED: POTASSIUM CHLORIDE 20 MEQ TAB PO SCH (12:00)
[2016-04-06] MEDS: VITAMINS, MULTIPLE CAP PO SCH (12:01)
[2016-04-06] MEDS: CALCIUM CARBONATE 500 MG TAB PO SCH (12:01)
[2016-04-06] MEDS: ENOXAPARIN 100 MG PFS SQ SCH ×2 (12:02→19:50)
[2016-04-06] MEDS: AZITHROMYCIN 500 MG in D5W 250 ML IV SCH (15:54)
[2016-04-06] MEDS: GLARGINE INSULIN (LANTUS) 100 UNITS/ML PEN SQ SCH (19:47)
[2016-04-07] MEDS: Albuterol/Ipratropium Neb 3 ML NEB NEB SCH ×4 (00:41→20:05)
[2016-04-07 04:44] LABS: ALLEN'S TEST PASS; BEb 30.1 (+/- 2); TCO2 60.6 MMOL/L (23-27)
[2016-04-07 04:58] LABS: ABG Draw Site Left Radial
[2016-04-07 06:04] LABS: BLOOD UREA NITROGEN 43 MG/DL (9-20); CALCIUM 8.4 MG/DL (8.4-10.2); CALCULATED OSMOLALITY 285 MOs/Kg (270-290); CHLORIDE 84 mEq/L (98-107); GLUCOSE 78 MG/DL (70-99); SODIUM LEVEL 143 mEq/L (137-146)
[2016-04-07] MEDS: NITROGLYCERINE 2 % OINTMENT PACK TOP SCH ×4 (06:14→23:29)
[2016-04-07] MEDS: REGULAR INSULIN 100 UNITS/ML - 3 ML VIAL SQ SCH ×4 (06:59→20:58)
[2016-04-07] MEDS: Furosemide 100 MG in NS 40 ML IV SCH ×2 (07:14→14:47)
[2016-04-07] MEDS: SODIUM CHLORIDE 0.9% 3 ML FLUSH FLUSH SCH ×2 (07:16→17:22)
[2016-04-07] MEDS: ACETYLCYSTEINE 20% SOLN 4 ML NEB SCH ×2 (07:37→20:05)
--- NOTE | 2016-04-07 07:39 | PCM.PULM ---
Chief Complaint: Uneventful overnight Patient sitting on chair breathing has improved and on oxygen via NC. Wears BIPAP at night Current complaints: SOB,MORENO, slight cough. No chest pain reported Current medication list reviewed:yes Notes reviewed:yes, Events from last night noted and discussed with Clinical Staff DVT prophylaxis:yes - Physical Examination Vital Signs and I&O: Last Vital Signs Temp 98 F 04/07/16 04:16 Pulse 69 04/07/16 07:37 Resp 20 04/07/16 04:16 BP 153/70 04/07/16 04:16 Pulse Ox 89 L 04/07/16 07:38 Oxygen Pulse Oxygen Saturation 89 O2 Device Nasal Cannula Oxygen Flow Rate 2.5 Fraction of Inspired Oxygen ( 35 FIO2) Intake & Output 04/04/16 04/05/16 04/06/16 04/07/16 23:59 23:59 23:59 23:59 Intake Total 2202 3241 1873 683 Output Total 4127 3600 4000 1300 Balance -1923 -359 -2127 -617 Patient's weight 104.19 kg 101.65 kg 99.654 kg General: Alert, Oriented x3, Cooperative, No acute distress, Obese Respiratory: Diminished Cardiovascular: Regular rate, Regular rate and rhythm, Normal S1, No Gallops, Rubs/Murmurs, Normal S2 GI: Normal bowel sounds, Soft, Non tender, No hepatospenomegaly, No masses Extremities/Musculoskeletal: Normal pulses, Edema (1+) Skin: Warm,Dry and Intact, No rashes, No breakdown, No significant lesion Neurological: Normal Steady Gait, Normal speech, Strength at 5/5 X4 ext, Cranial nerves 3-12 NL, Reflexes 2+ Psych/Mental Status: Normal Affect Result Diagrams: 04/06/16 05:35 04/07/16 04:50 Labs (last 24 hours): Laboratory Results - last 24 hr 04/06/16 04/06/16 04/07/16 16:51 19:31 04:18 WBC RBC Hgb Hct MCV MCH MCHC RDW Plt Count MPV Neut % (Auto) Lymph % (Auto) [place] % (Auto) Eos % (Auto) Baso % (Auto) Absolute Neuts (auto) Absolute Lymphs (auto) Seg Neuts % (Manual) Band Neutrophils % Lymphocytes % (Manual) Monocytes % (Manual) Metamyelocytes % Myelocytes % Absolute Neutrophils Absolute Lymphocytes Vacuolated Neuts Toxic Granulation Platelet Estimate RBC Morphology Puncture Site pH pCO2 pO2 HCO3 Total CO2 Base Excess FiO2 % Specimen Drawn By Sodium Potassium Chloride Carbon Dioxide Anion Gap BUN Creatinine Estimated GFR (MDRD) Glucose POC Capillary Glucose 264 H 216 H 88 Calculated Osmolality Calcium 04/07/16 04/07/16 04:35 04:50 WBC RBC Hgb Hct MCV MCH MCHC RDW Plt Count MPV Neut % (Auto) Lymph % (Auto) [place] % (Auto) Eos % (Auto) Baso % (Auto) Absolute Neuts (auto) Absolute Lymphs (auto) Seg Neuts % (Manual) Band Neutrophils % Lymphocytes % (Manual) Monocytes % (Manual) Metamyelocytes % Myelocytes % Absolute Neutrophils Absolute Lymphocytes Vacuolated Neuts Toxic Granulation Platelet Estimate RBC Morphology Puncture Site Left radial pH 7.530 H pCO2 70.0 H* pO2 51.0 L HCO3 58.5 H Total CO2 60.6 H Base Excess 30.1 H FiO2 % 2.5lpm/nc Specimen Drawn By [employer] Sodium 143 Potassium 3.2 L Chloride 84 L Carbon Dioxide 53 H Anion Gap 9 BUN 43 H Creatinine 1.20 Estimated GFR (MDRD) > 60 Glucose 78 POC Capillary Glucose Calculated Osmolality 285 Calcium 8.4 Lab/DI/Studies Reviewed: EKG: NSR, NO ST or ST wave changes noted Medications: Amiodarone HCl (Cordarone, Pacerone) 400 mg PO BID [facility] Stop: 04/19/16 16:59 Last Admin: 04/06/16 08:41 Dose: 400 mg Guaifenesin (Mucinex) 1,200 mg PO Q12 [facility] Stop: 04/16/16 16:59 Last Admin: 04/02/16 10:09 Dose: 1,200 mg Ibuprofen (Motrin) 400 mg PO Q6H PRN; Protocol PRN Reason: Mild Pain or Fever above 100.4 Stop: 04/15/16 16:59 Promethazine HCl (Phenergan) 12.5 mg IV Q6H PRN; Protocol PRN Reason: Nausea/Vomiting - Alternative Stop: 04/15/16 16:59 Insulin Human Regular (Humulin R) 0 units SQ ACHS [facility] PRN Reason: Protocol Stop: 04/15/16 16:59 Last Admin: 04/02/16 06:21 Dose: 3 units Insulin Glargine (Lantus Pen) 10 units SQ HS [facility] Stop: 04/15/16 16:59 Last Admin: 04/01/16 20:37 Dose: Not Given Levothyroxine Sodium (Synthroid, Levoxyl) 50 mcg PO 0600 [facility] Stop: 04/16/16 05:59 Last Admin: 04/02/16 06:22 Dose: Not Given Lisinopril (Zestril) 2.5 mg PO DAILY [facility] Stop: 04/16/16 17:59 Metoprolol Succinate (Toprol Xl) 50 mg PO DAILY [facility] Stop: 04/16/16 08:59 Last Admin: 04/02/16 10:06 Dose: 50 mg Potassium Chloride (Klor-Con M20) 40 meq PO DAILY@1200 [facility] Stop: 04/20/16 16:59 Prednisone (Deltasone, Orasone) 40 mg PO DAILYWM [facility] Stop: 04/20/16 16:59 Acetaminophen (Tylenol Tablet) 650 mg PO Q6H PRN; Protocol PRN Reason: Mild Pain or Fever above 100.4 Stop: 04/15/16 16:59 Acetylcysteine (Mucomyst) 4 ml NEB RTBID [facility] Stop: 04/16/16 16:59 Al Hydrox/Mg Hydrox/Simethicone (Maalox Plus, Mylanta) 30 ml PO Q3H PRN PRN Reason: Heartburn or Indigestion Stop: 04/15/16 16:59 Albuterol (Proventil, Ventolin) 3 ml NEB Q2H PRN PRN Reason: Wheezing-1ST Stop: 04/15/16 16:59 Albuterol/Ipratropium (Duoneb) 3 ml NEB Q4H PRN PRN Reason: Dyspnea-2ND OPTION Stop: 04/15/16 13:26 Aspirin (Aspirin) 325 mg PO DAILY [facility] Stop: 04/16/16 08:59 Last Admin: 04/02/16 10:05 Dose: 325 mg Benzonatate (Tessalon) 200 mg PO TID PRN PRN Reason: Cough - First Option Stop: 04/15/16 16:59 Ceftriaxone Sodium 1 gm/ (Dextrose) 100 mls @ 100 mls/hr IV Q24H [facility] Stop: 04/08/16 16:59 Last Admin: 04/01/16 14:13 Dose: 100 mls/hr Chlorphenir/Hydrocodone Polistirex (Tussionex) 5 ml PO BID PRN PRN Reason: Cough - Alternative Stop: 04/15/16 16:59 Enoxaparin Sodium (Lovenox) 100 mg SQ Q12H [facility] Stop: 04/09/16 16:59 Ondansetron HCl (Zofran) 4 mg IV Q6H PRN PRN Reason: Nausea/Vomiting - [facility] Stop: 04/15/16 16:59 Tamsulosin HCl (Flomax) 0.4 mg PO DAILY [facility] Stop: 04/16/16 08:59 Last Admin: 04/02/16 10:05 Dose: 0.4 mg Pravastatin Sodium (Pravachol) 40 mg PO DAILY [facility] Stop: 04/16/16 08:59 Last Admin: 04/05/16 08:51 Dose: 40 mg Sodium Chloride (Normal Saline) 1,000 mls @ 55 mls/hr IV Q24H [facility] Stop: 04/15/16 16:59 Last Admin: 04/07/16 07:50 Dose: Not Given - Assessment/Plan (1) Acute respiratory failure with hypoxia Acute J96.01 - ACUTE RESPIRATORY FAILURE WITH HYPOXIA Comment/Plan: Patient has significant CO2 retention with 2.5 L of oxygen and therefore would need BiPAP off and on during the day and would need to use BiPAP all night for his sleep apnea I would continue his diuretics however would suggest to start the patient on 40 mg IV q.8 hours so the patient stays in somewhat negative balance. Continue prednisone and would cut it down slowly continue other supportive care with DVT and GI prophylaxis patient would need his BiPAP 3 titrated for his sleep apnea once he gets out of the hospital continue to attempt to lose weight would repeat a blood gas in the morning patient has been on Rocephin and Zithromax but currently only on Rocephin at this time because cultures have been negative (2) Atrial fibrillation with RVR Acute I48.91 - UNSPECIFIED ATRIAL FIBRILLATION Comment/Plan: Patient remains on amiodarone digoxin and remains in sinus rhythm at this time (3) COPD exacerbation Acute J44.1 - CHRONIC OBSTRUCTIVE PULMONARY DISEASE W (ACUTE) EXACERBATION Comment/Plan: Patient is on p.o. prednisone and antibiotics with BiPAP oxygen nebulizers would continue current supportive care prognosis is guarded (4) Community acquired bacterial pneumonia Acute J15.9 - UNSPECIFIED BACTERIAL PNEUMONIA Comment/Plan: Continue the current antibiotics I personally saw and evaluated the patient.: Yes Case Care Discussed with: Patient, Respiratory Therapy Education/Counseling Given To: Patient Education/Counseling Given Regarding: Diagnosis, Treatment, Prognosis, Follow Up , Disposition Plan
[2016-04-07] MEDS: CALCIUM CARBONATE 500 MG TAB PO SCH (07:48)
[2016-04-07] MEDS: LISINOPRIL 2.5 MG TAB PO SCH (07:49)
[2016-04-07] MEDS: ASPIRIN 325 MG TAB PO SCH (07:49)
[2016-04-07] MEDS: VITAMINS, MULTIPLE CAP PO SCH (07:49)
[2016-04-07] MEDS: METOPROLOL (TOPROL-XL) 50 MG TAB PO SCH (07:49)
[2016-04-07] MEDS: GUAIFENESIN 600 MG LA TAB PO SCH ×2 (07:49→20:57)
[2016-04-07] MEDS: TAMSULOSIN HCL 0.4 MG CAP PO SCH (07:49)
[2016-04-07] MEDS: PRAVASTATIN 40 MG TABLET PO SCH (07:49)
[2016-04-07] MEDS: AMIODARONE 200 MG TAB PO SCH ×2 (07:50→20:57)
[2016-04-07] MEDS: NS 1,000 ML IV SCH (07:50)
[2016-04-07] MEDS ORDERED: PEG-ELECTROLYTE 17 GM PACK PO PRN (09:56)
--- NOTE | 2016-04-07 10:20 | GENMEDPROG ---
Chief Complaint: CHF and COPD exacerbations Subjective Note: Doing well, currently on nasal cannula resting comfortably in a chair at the bedside. Denies any chest pain, still has some shortness of breath and significant wheezing. Notes Reviewed: Yes Events from last night noted and discussed with Clinical Staff Current Medication List: Reviewed Currently: Reports: Cough, Wheezing, MORENO, SOB, Sputum, Tobacco Use/Hx, Reflux Sx DVT Prophylaxis: Yes - Physical Examination Vital Signs and I&O: Last Vital Signs Temp 97.9 F 04/07/16 08:00 Pulse 76 04/07/16 09:40 Resp 19 04/07/16 08:00 BP 136/59 L 04/07/16 08:00 Pulse Ox 90 L 04/07/16 08:00 Oxygen Pulse Oxygen Saturation 90 O2 Device Nasal Cannula Oxygen Flow Rate 2.5 Fraction of Inspired Oxygen ( 35 FIO2) Intake & Output 04/05/16 04/06/16 04/07/16 04/08/16 06:59 06:59 06:59 06:59 Intake Total 2110 3157 2135 360 Output Total 3570 8248 5244 900 [facility] -1465 -643 -2015 -540 Patient's weight 101.65 kg 99.654 kg General: Alert, Oriented x3, Cooperative, Mild distress HEENT: Normal Neck: Non-tender Respiratory: Diminished. negative: Rales, Rhonchi, Wheezes Cardiovascular: Regular rate, No Gallops,Rubs/Murmurs GI: Normal bowel sounds, Soft, Non tender (non distended) Extremities/Musculoskeletal: Other (Normal Tone). negative: Edema, Cyanosis Lab/DI/Studies Reviewed: Laboratory Tests 04/06/16 04/06/16 04/07/16 05:00 05:35 04:35 pH 7.520 H 7.530 H pCO2 61.0 H 70.0 H* pO2 66.0 L 51.0 L Potassium 3.3 L BUN Creatinine 04/07/16 04:50 pH pCO2 pO2 Potassium 3.2 L BUN 43 H Creatinine 1.20 - Plan (1) Acute respiratory failure with hypoxia Acute J96.01 - ACUTE RESPIRATORY FAILURE WITH HYPOXIA Comment/Plan: Continue O2 and BiPAP. Continue aggressive pulmonary toileting. (2) Atrial fibrillation with RVR Acute I48.91 - UNSPECIFIED ATRIAL FIBRILLATION Comment/Plan: Follow by Cardiology, keep K more than 4 magnesium more than 2. Rate controlled. Replete K orally today. (3) COPD exacerbation Acute J44.1 - CHRONIC OBSTRUCTIVE PULMONARY DISEASE W (ACUTE) EXACERBATION Comment/Plan: Continue IV steroids and nebulized bronchodilators. Continue mucolytics and aggressive pulmonary toileting. He still was on supplemental oxygen requirement, and has very little air movement on pulmonary exam. (4) Gastroesophageal reflux disease Chronic K21.9 - GASTRO-ESOPHAGEAL REFLUX DISEASE WITHOUT ESOPHAGITIS Comment /Plan: Continue PPI (5) Hypothyroidism Chronic E03.9 - HYPOTHYROIDISM, UNSPECIFIED Comment/Plan: Adjust Synthroid dose (6) Obstructive sleep apnea Chronic G47.33 - OBSTRUCTIVE SLEEP APNEA (ADULT) (PEDIATRIC) Comment/Plan: Continue BiPAP HS (7) Anemia Acute D64.9 - ANEMIA, UNSPECIFIED Qualifiers: Qualified Code(s): D64.9 - Anemia, unspecified Comment/Plan: Monitor counts transfuse as needed and indicated. (8) Renal insufficiency Acute N28.9 - DISORDER OF KIDNEY AND URETER, UNSPECIFIED Comment/Plan: Monitor renal function maintain hydration.. (9) Hyponatremia Acute E87.1 - HYPO-OSMOLALITY AND HYPONATREMIA Comment/Plan: Continue IV normal saline, monitor BMP.. (10) Sepsis Resolved A41.9 - SEPSIS, UNSPECIFIED ORGANISM Qualifiers: Qualified Code(s): A41.9 - Sepsis, unspecified organism Comment/Plan: Continue IV fluids and IV antibiotics monitor cultures. Continue IV steroids as well, tapered down by Pulmonary.
[2016-04-07] MEDS: ENOXAPARIN 100 MG PFS SQ SCH (12:19)
[2016-04-07] MEDS: PREDNISONE 20 MG TAB PO SCH (12:20)
[2016-04-07] MEDS: CEFTRIAXONE 1 GM in D5W 100 ML IV SCH (14:47)
--- NOTE | 2016-04-07 15:50 | CAPUEKG ---
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
--- NOTE | 2016-04-07 16:50 | PCM.CARD ---
- Subjective Reason for visit: For atypical atrial flutter or atrial tachycardia with rates greater than 220 beats per minute Current Assessment: No New Symptoms, Shortness of Breath (The steadily improving he is comfortable on nasal oxygen out of bed has not short of breath at rest). negative: Chest Pain, Dizzines, Edema, Nausea, Orthopnea, Palpitations, Vomiting Vital Signs: Last Vital Signs Temp 97.6 F 04/07/16 15:55 Pulse 67 04/07/16 16:00 Resp 19 04/07/16 15:55 BP 128/61 04/07/16 15:55 Pulse Ox 89 L 04/07/16 15:55 Respiratory: Diminished. negative: Rales, Rhonchi, Wheezes Jugular Vein Distention: None Pulse Rhythm: Regular EKG Rhythm: Sinus Rhythm (No recurrent atrial flutter or tachycardia) Heart Sounds: Distant. negative: S3, Murmur (No edema) Lab/DI Results Reviewed: EKG today shows right bundle branch block sinus rhythm normal QT interval - Assessment/Plan (1) Atrial fibrillation with RVR Acute I48.91 - UNSPECIFIED ATRIAL FIBRILLATION Present on Admission: Yes Comment/Plan: Stable no recurrence continue amiodarone and I think ideally should be referred for EP consultation for consideration of ablation as long-term I think he is a poor candidate for amiodarone therapy with concerns of increased risk of pulmonary toxicity post discharge follow-up with Dr. Dunn within 2 weeks (2) Community acquired bacterial pneumonia Acute J15.9 - UNSPECIFIED BACTERIAL PNEUMONIA Present on Admission: Yes Comment/Plan: Stable continues to improve treatment guided by the hospitalist group
[2016-04-07] MEDS: POTASSIUM CHLORIDE 20 MEQ TAB PO SCH (17:20)
[2016-04-07] MEDS: GLARGINE INSULIN (LANTUS) 100 UNITS/ML PEN SQ SCH (20:57)
[2016-04-08] MEDS: Furosemide 100 MG in NS 40 ML IV SCH ×2 (00:56→12:24)
[2016-04-08] MEDS: Albuterol/Ipratropium Neb 3 ML NEB NEB SCH ×3 (03:10→17:02)
[2016-04-08 05:16] LABS: MPV 6.8 fL (7.4-10.4)
[2016-04-08 05:33] LABS: BLOOD UREA NITROGEN 38 MG/DL (9-20); CALCIUM 8.4 MG/DL (8.4-10.2); CALCULATED OSMOLALITY 273 MOs/Kg (270-290); CHLORIDE 77 mEq/L (98-107); GLUCOSE 128 MG/DL (70-99); SODIUM LEVEL 136 mEq/L (137-146)
[2016-04-08 05:59] LABS: ALLEN'S TEST PASS; BEb 35.6 (+/- 2)
[2016-04-08 06:03] LABS: ABG Draw Site Right Radial
[2016-04-08] MEDS: REGULAR INSULIN 100 UNITS/ML - 3 ML VIAL SQ SCH ×2 (06:24→13:01)
[2016-04-08] MEDS: NITROGLYCERINE 2 % OINTMENT PACK TOP SCH ×2 (06:24→13:02)
[2016-04-08] MEDS: SODIUM CHLORIDE 0.9% 3 ML FLUSH FLUSH SCH (06:25)
[2016-04-08] MEDS: ACETYLCYSTEINE 20% SOLN 4 ML NEB SCH (07:47)
--- NOTE | 2016-04-08 07:51 | DIRPT ---
CLINICAL DATA: Respiratory failure. EXAM: PORTABLE CHEST 1 VIEW COMPARISON: 04/06/2016. FINDINGS: Mediastinum hilar structures normal. Heart size stable. Low lung volumes with mild bibasilar atelectasis endo infiltrates, no interim change. Small right pleural effusion cannot be excluded. No pneumothorax. IMPRESSION: 1. Persistent unchanged mild bibasilar atelectasis and/or infiltrates. Small right pleural effusion cannot be excluded. 2. Stable cardiomegaly . No pulmonary venous congestion. Electronically Signed By: Gibson Lares On: 04/08/2016 07:48
[2016-04-08] MEDS: LISINOPRIL 2.5 MG TAB PO SCH (09:13)
[2016-04-08] MEDS: POTASSIUM CHLORIDE 20 MEQ TAB PO SCH (09:14)
[2016-04-08] MEDS: PRAVASTATIN 40 MG TABLET PO SCH (09:14)
[2016-04-08] MEDS: AMIODARONE 200 MG TAB PO SCH (09:15)
[2016-04-08] MEDS: ASPIRIN 325 MG TAB PO SCH (09:16)
[2016-04-08] MEDS: TAMSULOSIN HCL 0.4 MG CAP PO SCH (09:16)
[2016-04-08] MEDS: PREDNISONE 20 MG TAB PO SCH (09:16)
[2016-04-08] MEDS: METOPROLOL (TOPROL-XL) 50 MG TAB PO SCH (09:17)
[2016-04-08] MEDS: GUAIFENESIN 600 MG LA TAB PO SCH (09:18)
--- NOTE | 2016-04-08 09:45 | PCM.DCS92 ---
Discharge Disposition: Home Discharge Condition: Good Cognitive Discharge Status: Unimpaired Fuctional Discharge Status: Independent Forms: ED Discharge Instructions Physician Follow up/Referrals: None,No Provider [NonStaff] - One Week Home Medications / New Prescriptions: New Amiodarone [Cordarone, Pacerone] 400 mg PO BID #60 tablet Lisinopril [Prinivil] 2.5 mg PO DAILY #30 tablet POTASSIUM CHLORIDE Tablet [K-DUR 20 mEq Tablet*] 40 meq PO DAILY@1200 #30 tab.er.prt Prednisone [Sterapred Ds] 10 mg PO DIR #21 pack Continue Tiotropium [Spiriva Handihaler] 1 inh INH DAILY Pravastatin [Pravachol] 40 mg PO DAILY Aspirin [Brii Aspirin] 325 mg PO DAILY Tamsulosin HCl [Flomax] 0.4 mg PO DAILY Albuterol Sulfate [Proair Hfa] 2 puff INH Q6H PRN PRN Reason: shortness of breath Multivitamin [Multiple Vitamins] 1 each PO DAILY Cinnamon Bark [Cinnamon] 500 mg PO DAILY Levothyroxine [Synthroid, Levoxyl] 50 mcg PO DAILY Albuterol/Ipratropium Neb [Duoneb] 3 ml NEB Q4-6H PRN PRN Reason: Shortness Of Breath Niacin [Slo-Niacin] 1,000 mg PO DAILY Calcium Carbonate [Calcium] 1,000 mg PO DAILY Metoprolol Succinate (XL) [Toprol Xl] 50 mg PO DAILY Nebulizer [Erapid Nebulizer] 1 each MC .UNKNOWN Discontinued Lisinopril [Prinivil] 10 mg PO DAILY Furosemide [Lasix] 40 mg PO DAILY #30 tab O2 Device: Nasal Cannula Diet at Discharge: Regular Activity: No Restrictions, As Tolerated Call Office For: Worsening Symptoms, Fever over 101 F - DC Summary Notes HPI/Notes: (1) Acute respiratory failure with hypoxia Acute J96.01 - ACUTE RESPIRATORY FAILURE WITH HYPOXIA Comment/Plan: Continue O2 and BiPAP, wean off of this and now on 3 L nasal cannula oxygen. He typically uses 2 use at home. Respiratory failure due to combination of atrial tachycardia, as well as COPD exacerbation. (2) Atrial fibrillation with RVR Acute I48.91 - UNSPECIFIED ATRIAL FIBRILLATION Comment/Plan: Follow by Cardiology, keep K more than 4 magnesium more than 2. Rate controlled on any a. Replete K orally today. (3) COPD exacerbation Acute J44.1 - CHRONIC OBSTRUCTIVE PULMONARY DISEASE W (ACUTE) EXACERBATION Comment/Plan: Treated with IV steroids and nebulized bronchodilators. Continue mucolytics and aggressive pulmonary toileting. He still was on supplemental oxygen requirement, and has very little air movement on pulmonary exam, but I suspect this may be his baseline. (4) Gastroesophageal reflux disease Chronic K21.9 - GASTRO-ESOPHAGEAL REFLUX DISEASE WITHOUT ESOPHAGITIS Comment /Plan: Continue PPI (5) Hypothyroidism Chronic E03.9 - HYPOTHYROIDISM, UNSPECIFIED Comment/Plan: Adjust Synthroid dose (6) Obstructive sleep apnea Chronic G47.33 - OBSTRUCTIVE SLEEP APNEA (ADULT) (PEDIATRIC) Comment/Plan: Continue BiPAP HS (7) Anemia Acute D64.9 - ANEMIA, UNSPECIFIED Qualifiers: Qualified Code(s): D64.9 - Anemia, unspecified Comment/Plan: Monitor counts transfuse as needed and indicated. (8) Renal insufficiency Acute N28.9 - DISORDER OF KIDNEY AND URETER, UNSPECIFIED Comment/Plan: Monitor renal function maintain hydration.. (9) Hyponatremia Acute E87.1 - HYPO-OSMOLALITY AND HYPONATREMIA Comment/Plan: Continue IV normal saline, monitor BMP.. (10) Sepsis Resolved A41.9 - SEPSIS, UNSPECIFIED ORGANISM Qualifiers: Qualified Code(s): A41.9 - Sepsis, unspecified organism Comment/Plan: Continue IV fluids and IV antibiotics monitor cultures. Continue IV steroids as well, tapered down by Pulmonary. This is a 70-year-old male with a history of COPD, some heart failure as well as admission to the hospital with atrial fibrillation who was admitted to the hospital with symptomatic atrial fibrillation as well as acute respiratory failure. He was treated as above for COPD exacerbation as well as pneumonia, he will complete a course of p.o. steroid taper at discharge. He did complete full course of IV azithromycin and Rocephin here in the hospital. He was seen by Cardiology views atrial tachycardia, treated with p.o. amiodarone. Due to his pulmonary history, Cardiology would like to have this patient be seen by EP for possible ablation in order to have him discontinue the use of this potentially long toxic medication. Patient is now on only 3 L nasal cannula oxygen, ambulating well and pulmonary exam is much improved. He has no significant cough or sputum production. 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 Patient is agreeable with this. Please see the hospital problems and discharge problems above for details of the hospital course including diagnostics and treatment. The plan of care including medications, prognosis, follow-up including alarm symptoms for which medical care should be sought were reviewed with the patient and any available family members/caretakers. The patient is agreeable to discharge today, and all questions were answered by me to their satisfaction. Hospital Course Note:: Discharge summary on patient named DEBBIE READ admitted to [facility] on 04/01/16 by Jodi Louie MD. Date of discharge is []. Total Time: 42 - Physical Exam Vital Signs: Last Vital Signs Temp 98.3 F 04/08/16 08:00 Pulse 77 04/08/16 08:00 Resp 15 04/08/16 08:00 BP 125/58 L 04/08/16 08:00 Pulse Ox 88 L 04/08/16 08:00 Oxygen Pulse Oxygen Saturation 88 O2 Device Nasal Cannula Oxygen Flow Rate 3 Fraction of Inspired Oxygen ( 35 FIO2) Constitutional: No apparent distress, Alert, Well nourished, Well appearing Oriented to: Time, Person, Place - HEENT Head: Normal (normocephalic, atraumatic.), Other (No cervical lymphadenopathy. No supraclavicular lymphadenopathy. Neck: No palpable mass, supple , trachea midline.) Eye: Normal (pupils equal, reactive to light, and round; EOMI, Sclera white) Oropharynx: Normal (Pharynx: Moist without exudate,Gums-no swelling, No oropharyngeal lesions or erythema, Mucous membranes are dry.) Nose: No Symptoms Reported (septum midline, Nares patent, without discharge or bleeding.) - Respiratory/Cardiovascular Respiratory: Diminished. negative: Rales, Rhonchi, Wheezes Cardiovascular: Normal (RRR , Normal S1, S2. No murmurs, rubs, or gallops. PMI non-displaced. Carotids: no carotid bruits. No bradycardia or tachycardia. DP pulses 2+ bilaterally.) - GI Auscultation: Normal (normal active sounds) Palpation: Normal (Soft,non distended,nontender. No hepatosplenomegaly.) Tenderness: Non tender (No rebound or guarding) Rectal Exam: Normal - Musculoskeletal Back: Normal (Non-Tender) Extremities: Normal (Normal tone, DP pulses 2+ bilaterally, No cyanosis or edema bilaterally, FROM bilaterally.) - Integumentary Lymphatics: Normal - Neurologic Memory Impaired: Normal Cerebellar: Normal (Babinski: toes downgoing bilaterally. Intact Finger to nose. Sensory grossly intact to light touch. Intact rapid alternating movements bilaterally. No pronator drift.) Mood Description: Normal (Fully oriented. Normal and appropriate affect.)
[2016-04-08 10:16] VITALS: TEMP 98.4
[2016-04-08 11:37] VITALS: PULSE 69
[2016-04-08] MEDS: ENOXAPARIN 100 MG PFS SQ SCH ×2 (13:02→13:10)
[2016-04-08] MEDS: CALCIUM CARBONATE 500 MG TAB PO SCH (13:03)
[2016-04-08] MEDS: VITAMINS, MULTIPLE CAP PO SCH (13:03)
--- NOTE | 2016-04-08 13:59 | PCM.PULM ---
Chief Complaint: Uneventful overnight patient feeling a whole lot better. Breathing is improved. On CPAP at night and prn. He may be discharged home soon Medication list and notes reviewed:yes DVT prophylaxis:yes - Physical Examination Vital Signs and I&O: Last Vital Signs Temp 97.9 F 04/08/16 11:35 Pulse 69 04/08/16 11:35 Resp 22 04/08/16 11:35 BP 119/51 L 04/08/16 11:35 Pulse Ox 86 L 04/08/16 11:35 Oxygen Pulse Oxygen Saturation 86 O2 Device Nasal Cannula Oxygen Flow Rate 3 Fraction of Inspired Oxygen ( 35 FIO2) Intake & Output 04/05/16 04/06/16 04/07/16 04/08/16 23:59 23:59 23:59 23:59 Intake Total 324 1873 1927 240 Output Total 3602 4000 5925 975 Balance -359 -2127 -3998 -735 Patient's weight 101.65 kg 99.654 kg 99.246 kg General: Alert, Oriented x3, No acute distress, Obese Respiratory: Diminished (at bases) Cardiovascular: Regular rate, Regular rate and rhythm, Normal S1, No Gallops, Rubs/Murmurs, Normal S2 GI: Normal bowel sounds, Soft, Non tender, No hepatospenomegaly, No masses, Obese Extremities/Musculoskeletal: Normal pulses, Swelling (trace BLEs) Skin: Warm,Dry and Intact, No rashes, No breakdown Neurological: Normal Steady Gait, Normal speech, Strength at 5/5 X4 ext, Normal tone, Cranial nerves 3-12 NL Psych/Mental Status: Appropriate Result Diagrams: 04/08/16 04:30 04/08/16 04:30 Labs (last 24 hours): Laboratory Results - last 24 hr 04/08/16 04/08/16 04/08/16 04:30 04:30 05:33 WBC 18.7 H RBC 4.32 L Hgb 13.6 L Hct 41.7 L MCV 97 H MCH 31.5 MCHC 32.7 L RDW 13.6 Plt Count 254 MPV 6.8 L Puncture Site pH pCO2 pO2 HCO3 Total CO2 Base Excess FiO2 % Specimen Drawn By Sodium 136 L Potassium 3.3 L Chloride 77 L Carbon Dioxide 55 H Anion Gap 7 L BUN 38 H Creatinine 1.10 Estimated GFR (MDRD) > 60 Glucose 128 H POC Capillary Glucose 131 H Calculated Osmolality 273 Calcium 8.4 [id number]-[id number] Pept 780 04/08/16 04/08/16 05:50 11:39 WBC RBC Hgb Hct MCV MCH MCHC RDW Plt Count MPV Puncture Site Right radial pH 7.550 H pCO2 74.0 H* pO2 56.0 L HCO3 64.7 H Total CO2 67.0 H Base Excess 35.6 H FiO2 % 4 lpm home cpap Specimen Drawn By Stana Sodium Potassium Chloride Carbon Dioxide Anion Gap BUN Creatinine Estimated GFR (MDRD) Glucose POC Capillary Glucose 228 H Calculated Osmolality Calcium [id number] Pept Lab/DI/Studies Reviewed: EKG: NSR, NO ST or ST wave changes noted Cxray: 1 view Chest x-ray was seen personally patient seems to have bilateral basal atelectasis and small bilateral effusions with cardiomegaly Medications: Metoprolol Succinate (Toprol Xl) 50 mg PO DAILY [facility] Stop: 04/16/16 08:59 Last Admin: 04/05/16 08:51 Dose: 50 mg Amiodarone HCl (Cordarone, Pacerone) 400 mg PO BID [facility] Stop: 04/19/16 16:59 Last Admin: 04/06/16 08:41 Dose: 400 mg Guaifenesin (Mucinex) 1,200 mg PO Q12 [facility] Stop: 04/16/16 16:59 Last Admin: 04/02/16 10:09 Dose: 1,200 mg Ibuprofen (Motrin) 400 mg PO Q6H PRN; Protocol PRN Reason: Mild Pain or Fever above 100.4 Stop: 04/15/16 16:59 Promethazine HCl (Phenergan) 12.5 mg IV Q6H PRN; Protocol PRN Reason: Nausea/Vomiting - Alternative Stop: 04/15/16 16:59 Insulin Human Regular (Humulin R) 0 units SQ ACHS K[facility] PRN Reason: Protocol Stop: 04/15/16 16:59 Last Admin: 04/02/16 06:21 Dose: 3 units Insulin Glargine (Lantus Pen) 10 units SQ HS [facility] Stop: 04/15/16 16:59 Last Admin: 04/01/16 20:37 Dose: Not Given Levothyroxine Sodium (Synthroid, Levoxyl) 50 mcg PO 0600 [facility] Stop: 04/16/16 05:59 Last Admin: 04/02/16 06:22 Dose: Not Given Lisinopril (Zestril) 2.5 mg PO DAILY [facility] Stop: 04/16/16 17:59 Furosemide 100 mg/ Sodium (Chloride) 50 mls @ 5 mls/hr IV Q10H KIRT; 10 MG/HR PRN Reason: Protocol Stop: 04/17/16 10:59 Last Admin: 04/04/16 08:49 Dose: Not Given Acetaminophen (Tylenol Tablet) 650 mg PO Q6H PRN; Protocol PRN Reason: Mild Pain or Fever above 100.4 Stop: 04/15/16 16:59 Al Hydrox/Mg Hydrox/Simethicone (Maalox Plus, Mylanta) 30 ml PO Q3H PRN PRN Reason: Heartburn or Indigestion Stop: 04/15/16 16:59 Albuterol (Proventil, Ventolin) 3 ml NEB Q2H PRN PRN Reason: Wheezing-1ST Stop: 04/15/16 16:59 Albuterol/Ipratropium (Duoneb) 3 ml NEB Q4H PRN PRN Reason: Dyspnea-2ND OPTION Stop: 04/15/16 13:26 Aspirin (Aspirin) 325 mg PO DAILY [facility] Stop: 04/16/16 08:59 Last Admin: 04/02/16 10:05 Dose: 325 mg Benzonatate (Tessalon) 200 mg PO TID PRN PRN Reason: Cough - First Option Stop: 04/15/16 16:59 Enoxaparin Sodium (Lovenox) 100 mg SQ Q12H [facility] Stop: 04/09/16 16:59 Ondansetron HCl (Zofran) 4 mg IV Q6H PRN PRN Reason: Nausea/Vomiting - First Option Stop: 04/15/16 16:59 Tamsulosin HCl (Flomax) 0.4 mg PO DAILY [facility] Stop: 04/16/16 08:59 Last Admin: 04/02/16 10:05 Dose: 0.4 mg Pravastatin Sodium (Pravachol) 40 mg PO DAILY [facility] Stop: 04/16/16 08:59 Last Admin: 04/05/16 08:51 Dose: 40 mg - Assessment/Plan (1) Acute respiratory failure with hypoxia Acute J96.01 - ACUTE RESPIRATORY FAILURE WITH HYPOXIA Comment/Plan: Patient continues to have CO2 retention however would need to be on BiPAP while he is sleeping at night for his obstructive sleep apnea and chronic respiratory failure patient to be seen in my office within a week and probably would need a retitration off his BiPAP and a sleep study I would continue antibiotics to complete a total of 10 days continue supportive care with DVT and GI prophylaxis and continue physiotherapy (2) Atrial fibrillation with RVR Acute I48.91 - UNSPECIFIED ATRIAL FIBRILLATION Comment/Plan: Patient remains on amiodarone digoxin and remains in sinus rhythm at this time (3) COPD exacerbation Acute J44.1 - CHRONIC OBSTRUCTIVE PULMONARY DISEASE W (ACUTE) EXACERBATION Comment/Plan: Patient is on p.o. prednisone and antibiotics with BiPAP oxygen nebulizers would continue current supportive care prognosis is guarde (4) Community acquired bacterial pneumonia Acute J15.9 - UNSPECIFIED BACTERIAL PNEUMONIA Comment/Plan: Continue the antibiotics
[2016-04-08 15:49] VITALS: BP 136/62; TEMP 98
== END 2016-04-08 17:40 | disposition home or self-care (01) | DRG 871 ==
LOC: ED 10:56 → EDINP 13:32 → ICU 19:00 → PCU 04-06 17:10
PROVIDERS: ADMIT Hospitalist; ATTEND Internal Medicine
PROC: 039B3ZZ Drainage of Right Radial Artery, Percutaneous Approach (ICD-10-PCS; principal; 2016-04-01)
PROC: 5A09457 Assistance with Respiratory Ventilation, 24-96 Consecutive Hours, Continuous Positive Airway Pressure (ICD-10-PCS; 2016-04-01)
DX: A41.9 Sepsis, unspecified organism (principal); J96.01 Acute respiratory failure with hypoxia; J18.9 Pneumonia, unspecified organism; E11.22 Type 2 diabetes mellitus with diabetic chronic kidney disease; Z99.81 Dependence on supplemental oxygen; J44.0 Chronic obstructive pulmonary disease with (acute) lower respiratory infection; I50.9 Heart failure, unspecified; I48.0 Paroxysmal atrial fibrillation; I48.92 Unspecified atrial flutter; J44.1 Chronic obstructive pulmonary disease with (acute) exacerbation; E87.1 Hypo-osmolality and hyponatremia; K21.9 Gastro-esophageal reflux disease without esophagitis; E03.9 Hypothyroidism, unspecified; G47.33 Obstructive sleep apnea (adult) (pediatric); D64.9 Anemia, unspecified; I25.10 Atherosclerotic heart disease of native coronary artery without angina pectoris; I25.2 Old myocardial infarction; E78.00 Pure hypercholesterolemia, unspecified; Z87.01 Personal history of pneumonia (recurrent); M19.90 Unspecified osteoarthritis, unspecified site; Z98.61 Coronary angioplasty status; Z79.899 Other long term (current) drug therapy; Z79.82 Long term (current) use of aspirin; Z87.891 Personal history of nicotine dependence; I12.9 Hypertensive chronic kidney disease with stage 1 through stage 4 chronic kidney disease, or unspecified chronic kidney disease; N18.3 Chronic kidney disease, stage 3 (moderate); E78.5 Hyperlipidemia, unspecified; I25.84 Coronary atherosclerosis due to calcified coronary lesion
CPT/HCPCS: 36415; 36600; 71010; 80048; 80053; 81001; 82043; 82803; 82962; 83036; 83605; 83690; 83735; 83880; 84443; 84484; 85007; 85027; 85610; 85730; 87040; 87070; 87086; 87205; 87641; 93005; 93306; 94640; 94660; 96361; 96365; 96366; 96372; 96375; 96376; 97162; 98960; 99285; G0237; J0153; J0282; J0456; J0696; J1160; J1650; J1940; J1956; J2920; J2930; J3490; J7030; J7060; J7070; J7608; J7614; J7620